=== PATIENT | female | born 1980 | race Caucasian/White ===

== ENCOUNTER 2016-12-07 00:29 | Emergency (ER) | payer OTHER ==
[2016-12-07 00:39] VITALS: PULSE 123; O2SAT 97
[2016-12-07] MEDS ORDERED: TORAdol 30 mg Injection IM ONE (00:49)
--- NOTE | 2016-12-07 00:53 | ERPHSYRPT ---
- History of Present Illness Time Seen by Provider: 12/07/16 00:50 Source: patient Exam Limitations: no limitations Patient Subjective Stated Complaint: SLIPPED AND FELL IN THE METAL BARS AT PRISON , POSSIBLE BROKEN RIGHT ARM Triage Nursing Assessment: PT ALERT AND ORIETNEDX3, GAIT IS STEADY, AMBUALTES WELL, SWELLING AND S SHAPED APPEARANCE TO RIGHT FOREARM, RADIAL PULSE PRESENT AND CAP REFILL IMMEDIATE Physician History: 35-year-old white female arrives with complaint of pain in her right to the distal forearm since approximately 1205 this morning. According to patient she slipped and hit her arm into the bars at the longterm she complains of pain and swelling in the distal right arm she has decreased range of motion to her right wrist secondary to pain. Past medical history includes rheumatoid arthritis, epilepsy, bipolar depression , fibroids. Past surgical history includes cholecystectomy and tubal ligation. Occurred: just prior to arrival (12:05 AM today) Extremities Pain Location: forearm: right Modifying Factors: Improves With: movement Associated Symptoms: none Allergies/Adverse Reactions: tramadol HCl [From UltraInflux] Allergy (Verified 02/06/16 16:02) ziprasidone HCl [From Geodon] Allergy (Verified 02/06/16 16:02) ziprasidone mesylate [From Geodon] Allergy (Verified 02/06/16 16:02) Home Medications: Lisinopril 10 mg [Zestril 10 MG] 10 mg PO DAILY 12/12/15 [History] Levetiracetam [Keppra 500 mg ] 1,000 mg PO BID 02/06/16 [History] Hx Tetanus, Diphtheria Vaccination/Date Given: Yes Hx Influenza Vaccination/Date Given: No Hx Pneumococcal Vaccination/Date Given: No Immunizations Up to Date: Yes - Review of Systems Constitutional: No Fever, No Chills Eyes: No Symptoms Ears, Nose, & Throat: No Symptoms Respiratory: No Cough, No Dyspnea Cardiac: No Chest Pain, No Edema, No Syncope Abdominal/Gastrointestinal: No Abdominal Pain, No Nausea, No Vomiting, No Diarrhea Genitourinary Symptoms: No Dysuria Musculoskeletal: Other (pain right distal forearm) Skin: No Rash Neurological: No Dizziness, No Focal Weakness, No Sensory Changes Psychological: No Symptoms Endocrine: No Symptoms All Other Systems: Reviewed and Negative - Past Medical History Pertinent Past Medical History: Yes Neurological History: Epilepsy ENT History: No Pertinent History Cardiac History: No Pertinent History Respiratory History: No Pertinent History Endocrine Medical History: No Pertinent History Musculoskeletal History: Rheumatoid Arthritis GI Medical History: No Pertinent History History: No Pertinent History Psycho-Social History: Bipolar, Depression Female Reproductive Disorders: Fibroids - Past Surgical History Past Surgical History: Yes Neuro Surgical History: No Pertinent History Cardiac: No Pertinent History Respiratory: No Pertinent History Gastrointestinal: Cholecystectomy Genitourinary: No Pertinent History Musculoskeletal: No Pertinent History Female Surgical History: Tubal Ligation - Social History Smoking Status: Current every day smoker How long have you smoked: 15 Exposure to second hand smoke: No Drug Use: none Patient Lives Alone: No - Female History Hx Now: No - Nursing Vital Signs Nursing Vital Signs: Initial Vital Signs Temperature 98.4 F Temperature Source Oral Pulse Rate 123 Respiratory Rate 18 Blood Pressure [] 136/85 Pain Intensity 8 - Physical Exam General Appearance: moderate distress Eyes, Ears, Nose, Throat Exam: moist mucous membranes Neck Exam: non-tender, supple Cardiovascular/Respiratory Exam: chest non-tender, normal breath sounds, regular rate/rhythm, no respiratory distress Abdominal Exam: non-tender, No guarding Back Exam: normal inspection, No vertebral tenderness Shoulder Exam: normal inspection, non-tender, no evidence of injury, normal ROM Elbow/Forearm Exam: pain (pain with palpation right distal forearm), swelling ( swelling right distal forearm), No normal ROM (decreased range of motion right wrist secondary to pain right forearm) Wrist Exam: No normal inspection (Decreased range of motion right wrist secondary to pain right forearm) Hand Exam: non-tender, no evidence of injury, No normal ROM (decreased range of motion right hand secondary to pain right forearm) Neuro/Tendon Exam: normal sensation, normal motor functions Mental Status Exam: alert, oriented x 3, cooperative Skin Exam: normal color, warm, dry SpO2 Interpretation: normal (97%) SpO2: 97 Oxygen Delivery: Room Air - Course Nursing assessment & vital signs reviewed: Yes - Radiology Exams Right Forearm X-ray Interpretation: Interpreted by me, Negative, No Fracture, No Subluxation Ordered Tests: Active Orders 24 hr Category Date Time Status Splint STAT Care 12/07/16 01:07 Active FOREARM Stat Exams 12/07/16 00:49 Taken Medication Summary Discontinued Medications Generic Name Dose Route Start Last Admin Trade Name Freq PRN Reason Stop Dose Admin Ketorolac Tromethamine 60 mg 12/07/16 00:49 12/07/16 01:06 Toradol 30 Mg Injection IM 12/07/16 00:50 60 mg STAT ONE Administration Ketorolac Tromethamine Confirm 12/07/16 00:58 Toradol 30 Mg Injection Administered 12/07/16 00:59 Dose 60 mg .ROUTE .STK-MED ONE - Progress Progress: improved Progress Note: 12/07/16 01:25 X-ray patient's right forearm negative fracture negative dislocation. Patient is better after Toradol she did have a moderate amount of pain in her distal right forearm. OCL was applied. Will discharge patient diagnosis accidental fall, contusion right forearm, right wrist sprain. Patient to take Motrin every 6 hours or Tylenol every 4 hours as needed for pain. - Departure Time of Disposition: :26 Departure Disposition: Shelter/Alf Clinical Impression: Accidental fall Qualifiers: Encounter type: initial encounter Qualified Code(s): W19.XXXA - Unspecified fall, initial encounter Contusion of right forearm Qualifiers: Encounter type: initial encounter Qualified Code(s): S50.11XA - Contusion of right forearm, initial encounter Right wrist sprain Qualifiers: Encounter type: initial encounter Qualified Code(s): S63.501A - Unspecified sprain of right wrist, initial encounter Condition: Fair Critical Care Time: No Referrals: CHADWICK WEST MD [Primary Care Provider] - Instructions: Wrist Sprain Additional Instructions: Return home. Ice to right forearm 24-48 hours. Motrin 600 mg orally every 6 hours with food as needed for pain. Tylenol every 4 hours as needed for pain. Follow-up with your physician or longterm doctor if symptoms are worse, no better in 24-48 hours, or persist longer than one week. Return for acute distress or for severe symptoms. Your x-rays have been preliminarily read they will be reread tomorrow morning you will be contacted if any discrepancies are noted.
[2016-12-07] MEDS ORDERED: TORAdol 30 mg Injection ONE (00:58)
[2016-12-07 01:31] VITALS: BP 130/78
--- NOTE | 2016-12-07 08:52 | XRAY ---
Indication: Pain following fall. Comparison: None 2 views of the right forearm demonstrates mild distal posterior soft tissue swelling. No other bony, articular, or soft tissue abnormalities.
== END 2016-12-07 01:38 | disposition home or self-care (01) ==
LOC: ED 00:29 → EEVIPCON 00:29 → ED 01:38
PROC: 2W3CX1Z Immobilization of Right Lower Arm using Splint (ICD-10-PCS; principal; 2016-12-07)
DX: S50.11XA Contusion of right forearm, initial encounter (principal); S63.501A Unspecified sprain of right wrist, initial encounter; W01.198A Fall on same level from slipping, tripping and stumbling with subsequent striking against other object, initial encounter; Y92.149 Unspecified place in prison as the place of occurrence of the external cause
CPT/HCPCS: 29126; 73090; 96372; 99283; 99284; J1885

== ENCOUNTER 2019-12-15 11:44 | Emergency (ER) | payer OTHER ==
--- NOTE | 2019-12-15 11:48 | ERPHSYRPT ---
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 Who was presented to the emergency department via EMS for confusion and ambulating in unusual fashion. Patient has been taking her psychiatric meds as she is prescribed. She is denying any illicit drug use or alcohol use. 911 was called because of the fashion in which she was ambulating around [place]. Patient denies head injury. She does have a headache. Patient has chronic low back pain and denies any acute trauma or fall. Patient denies suicidal ideation and homicidal ideation. Timing/Duration: today Severity of Symptoms-Max: mild Severity of Symptoms-Current: mild Context related to: other (Acting unusually and ambulating unusually.) Associated Symptoms: anxiety, No hallucinating, No impaired concentration, No paranoid, No suicidal ideation Previous symptoms: no prior history Allergies/Adverse Reactions: tramadol HCl [From Ultram] Allergy (Verified 02/06/16 16:02) ziprasidone HCl [From Geodon] Allergy (Verified 02/06/16 16:02) ziprasidone mesylate [From Geodon] Allergy (Verified 02/06/16 16:02) Home Medications: Lisinopril 10 mg [Zestril 10 MG] 10 mg PO DAILY 12/12/15 [History] Levetiracetam [Keppra 500 mg ] 1,000 mg PO BID 02/06/16 [History] Hx Tetanus, Diphtheria Vaccination/Date Given: Yes Hx Influenza Vaccination/Date Given: No Hx Pneumococcal Vaccination/Date Given: No Travel Risk - International Travel Have you traveled outside of the country in past 3 weeks: No - Coronavirus Screening Are you exhibiting any of the following symptoms?: No Close contact with a COVID-19 positive Pt in past 14-21 Days: No - Past Medical History Pertinent Past Medical History: Yes Neurological History: Seizures ENT History: No Pertinent History Cardiac History: Hypertension Respiratory History: No Pertinent History Endocrine Medical History: No Pertinent History Musculoskeletal History: Degenerative Disk Disease, Rheumatoid Arthritis GI Medical History: No Pertinent History History: No Pertinent History Psycho-Social History: Bipolar, Depression Female Reproductive Disorders: Fibroids Other Medical History: STATES SHE HAS RHEUMATOID ARTHRITIS BUT DOES NOT FOLLOW- UP WITH [facility] OR TAKE ANY MEDICATION. HX OF SEIZURE DISORDER BUT NOT ON ANY MEDICATION X 2 YEARS WITH NO SEIZURES FOR 1-1/2 YE - Past Surgical History Past Surgical History: Yes Neuro Surgical History: No Pertinent History Cardiac: No Pertinent History Respiratory: No Pertinent History Gastrointestinal: Cholecystectomy Genitourinary: No Pertinent History Musculoskeletal: No Pertinent History Female Surgical History: Tubal Ligation - Social History Smoking Status: Current every day smoker How long have you smoked: 15 Exposure to second hand smoke: No Drug Use: none Patient Lives Alone: No - Review of Systems Constitutional: No Symptoms Eyes: No Symptoms Ears, Nose, & Throat: No Symptoms Respiratory: No Symptoms Cardiac: No Symptoms Abdominal/Gastrointestinal: No Symptoms Genitourinary Symptoms: No Symptoms Musculoskeletal: Back Pain (Chronic, worse today) Skin: No Symptoms Neurological: No Symptoms Psychological: No Symptoms, Other (Patient denies any complaints.) Endocrine: No Symptoms Hematologic/Lymphatic: No Symptoms Immunological/Allergic: No Symptoms All Other Systems: Reviewed and Negative - Nursing Vital Signs Nursing Vital Signs: Initial Vital Signs Temperature 98.3 F 12/15/19 11:46 Pulse Rate 98 H 12/15/19 11:46 Respiratory Rate 18 12/15/19 11:46 Blood Pressure 114/84 12/15/19 11:46 O2 Sat by Pulse Oximetry 95 12/15/19 11:46 Pain Scale Pain Intensity 8 - Physical Exam General Appearance: no apparent distress, alert, anxiety Eyes, Ears, Nose, Throat Exam: normal ENT inspection, moist mucous membranes Neck Exam: normal inspection, non-tender, supple, full range of motion Respiratory Exam: normal breath sounds, lungs clear, respiratory distress, airway intact, No chest tenderness Cardiovascular Exam: regular rate/rhythm, normal heart sounds, normal peripheral pulses Gastrointestinal/Abdominal Exam: soft, normal bowel sounds, No tenderness Extremities Exam: normal inspection Current Suicidality: denies suicide plan Neurological Exam: alert, calm, bell person II-XII nml as tested, anxious Appearance: appropriate appearance, appropriate insight, neat, no memory impairment Behavior/Eye Contact/Speech: alert & cooperative, good eye contact, normal speech Thoughts/Hallucinations: normal thought pattern, no apparent hallucination Skin Exam: normal color, warm, dry SpO2 Interpretation: normal O2 Delivery: Room Air - Course Nursing assessment & vital signs reviewed: Yes EKG Interpreted by Me: RATE (90), Sinus Rhythm, NORMAL AXIS, NORMAL INTERVALS, NORMAL QRS, Other (No acute ischemic changes) Ordered Tests: Active Orders 24 hr Category Date Time Status Float Builder STAT Care 12/15/19 11:49 Active EKG-ER Only STAT Care 12/15/19 11:48 Active IV Insertion STAT Care 12/15/19 11:48 Active HEAD WITHOUT CONTRAST [CT] Stat Exams 12/15/19 11:52 Completed ACETAMINOPHEN Stat Lab 12/15/19 12:09 Completed CBC W DIFF Stat Lab 12/15/19 12:09 Completed CMP Stat Lab 12/15/19 12:09 Completed ETHYL ALCOHOL Stat Lab 12/15/19 12:09 Completed LITHIUM Stat Lab 12/15/19 12:09 Completed SALICYLATE Stat Lab 12/15/19 12:09 Completed UA W/RFX UR CULTURE Stat Lab 12/15/19 12:50 Completed Urine Triage Profile Stat Lab 12/15/19 12:40 Completed Medication Summary Discontinued Medications Generic Name Dose Route Start Last Admin Trade Name Cady PRN Reason Stop Dose Admin Hydromorphone HCl 0.5 mg 12/15/19 12:57 12/15/19 13:12 Hydromorphone 1 Mg/Ml Ampule IV 12/15/19 12:58 0.5 mg STAT ONE Administration Hydromorphone HCl Confirm 12/15/19 13:10 Hydromorphone 1 Mg/Ml Ampule Administered 12/15/19 13:11 Dose 1 mg .ROUTE .STK-MED ONE Ondansetron HCl 4 mg 12/15/19 12:57 12/15/19 13:12 Zofran 4 Mg/2 Ml Vial IV 12/15/19 12:58 4 mg STAT ONE Administration Ondansetron HCl Confirm 12/15/19 13:10 Zofran 4 Mg/2 Ml Vial Administered 12/15/19 13:11 Dose 4 mg .ROUTE .STK-MED ONE Lab/Rad Data: Laboratory Result Diagrams 12/15/19 12:09 12/15/19 12:09 Laboratory Results 12/15/19 12/15/19 12/15/19 Range/Units 12:50 12:40 12:09 WBC (4.0-10.5) K/mm3 RBC (4.1-5.4) M/mm3 Hgb (12.0-16.0) gm/dl Hct (35-47) % MCV (78-100) fl MCH (26-32) pg MCHC (32-36) g/dl RDW (11.5-14.0) % Plt Count (150-450) K/mm3 MPV (7.5-11.0) fl Gran % (36.0-66.0) % Eos # (Auto) (0-0.5) Absolute Lymphs (auto) (1.0-4.6) Absolute Monos (auto) (0.0-1.3) Lymphocytes % (24.0-44.0) % Monocytes % (0.0-12.0) % Eosinophils % (0.00-5.0) % Basophils % (0.0-0.4) % Absolute Granulocytes (1.4-6.9) Basophils # (0-0.4) Sodium (137-145) mmol/L Potassium (3.5-5.1) mmol/L Chloride (98-107) mmol/L Carbon Dioxide (22-30) mmol/L Anion Gap (5-15) MEQ/L BUN (7-17) mg/dL Creatinine (0.52-1.04) mg/dL Estimated GFR ML/MIN Glucose (74-106) mg/dL Calcium (8.4-10.2) mg/dL Total Bilirubin (0.2-1.3) mg/dL AST (14-36) U/L ALT (0-35) U/L Alkaline Phosphatase (38-126) U/L Serum Total Protein (6.3-8.2) g/dL Albumin (3.5-5.0) g/dL Urine Color YELLOW (YELLOW) Urine Appearance CLEAR (CLEAR) Urine pH 7.0 (5-6) Ur Specific [place] 1.013 (1.005-1.025) Urine Protein NEGATIVE (Negative) Urine Ketones NEGATIVE (NEGATIVE) Urine Blood NEGATIVE (0-5) Sarabjit/ul Urine Nitrite NEGATIVE (NEGATIVE) Urine Bilirubin NEGATIVE (NEGATIVE) Urine Urobilinogen 4 (0-1) mg/dL Ur Leukocyte Esterase NEGATIVE (NEGATIVE) Urine WBC (Auto) 0-2 (0-5) /HPF Urine RBC (Auto) NONE (0-2) /HPF U Epithel Cells (Auto) RARE (FEW) /HPF Urine Bacteria (Auto) NONE (NEGATIVE) /HPF Urine Mucus (Auto) SLIGHT (NEGATIVE) /HPF Urine Culture Reflexed NO (NO) Urine Glucose NEGATIVE (NEGATIVE) mg/dL Salicylates (2-20) mg/dL Urine Opiates Level POSITIVE (NEGATIVE) Ur Methadone NEGATIVE (NEGATIVE) Acetaminophen (10-30) ug/ml Urine Barbiturates NEGATIVE (NEGATIVE) Ur Phencyclidine (PCP) NEGATIVE (NEGATIVE) Urine Amphetamine NEGATIVE (NEGATIVE) U Benzodiazepine Level POSITIVE (NEGATIVE) Matteson < 0.2 L (0.60-1.20) mmol/L Urine Cocaine NEGATIVE (NEGATIVE) Urine Marijuana (THC) NEGATIVE (NEGATIVE) Ethyl Alcohol (0-10) mg/dL 12/15/19 12/15/19 Range/Units 12:09 12:09 WBC 8.5 (4.0-10.5) K/mm3 RBC 4.73 (4.1-5.4) M/mm3 Hgb 13.4 (12.0-16.0) gm/dl Hct 42.0 (35-47) % MCV 88.8 (78-100) fl MCH 28.3 (26-32) pg MCHC 31.9 L (32-36) g/dl RDW 13.3 (11.5-14.0) % Plt Count 184 (150-450) K/mm3 MPV 11.2 H (7.5-11.0) fl Gran % 68.4 H (36.0-66.0) % Eos # (Auto) 0.11 (0-0.5) Absolute Lymphs (auto) 2.02 (1.0-4.6) Absolute Monos (auto) 0.53 (0.0-1.3) Lymphocytes % 23.8 L (24.0-44.0) % Monocytes % 6.3 (0.0-12.0) % Eosinophils % 1.3 (0.00-5.0) % Basophils % 0.2 (0.0-0.4) % Absolute Granulocytes 5.79 (1.4-6.9) Basophils # 0.02 (0-0.4) Sodium 137 (137-145) mmol/L Potassium 4.7 (3.5-5.1) mmol/L Chloride 103 (98-107) mmol/L Carbon Dioxide 28 (22-30) mmol/L Anion Gap 10.1 (5-15) MEQ/L BUN 14 (7-17) mg/dL Creatinine 0.53 (0.52-1.04) mg/dL Estimated GFR > 60.0 ML/MIN Glucose 85 (74-106) mg/dL Calcium 9.4 (8.4-10.2) mg/dL Total Bilirubin 0.50 (0.2-1.3) mg/dL AST 65 H (14-36) U/L ALT 58 H (0-35) U/L Alkaline Phosphatase 160 H (38-126) U/L Serum Total Protein 7.8 (6.3-8.2) g/dL Albumin 4.1 (3.5-5.0) g/dL Urine Color (YELLOW) Urine Appearance (CLEAR) Urine pH (5-6) Ur Specific [place] (1.005-1.025) Urine Protein (Negative) Urine Ketones (NEGATIVE) Urine Blood (0-5) Sarabjit/ul Urine Nitrite (NEGATIVE) Urine Bilirubin (NEGATIVE) Urine Urobilinogen (0-1) mg/dL Ur Leukocyte Esterase (NEGATIVE) Urine WBC (Auto) (0-5) /HPF Urine RBC (Auto) (0-2) /HPF U Epithel Cells (Auto) (FEW) /HPF Urine Bacteria (Auto) (NEGATIVE) /HPF Urine Mucus (Auto) (NEGATIVE) /HPF Urine Culture Reflexed (NO) Urine Glucose (NEGATIVE) mg/dL Salicylates 1.0 L (2-20) mg/dL Urine Opiates Level (NEGATIVE) Ur Methadone (NEGATIVE) Acetaminophen < 10 L (10-30) ug/ml Urine Barbiturates (NEGATIVE) Ur Phencyclidine (PCP) (NEGATIVE) Urine Amphetamine (NEGATIVE) U Benzodiazepine Level (NEGATIVE) Matteson (0.60-1.20) mmol/L Urine Cocaine (NEGATIVE) Urine Marijuana (THC) (NEGATIVE) Ethyl Alcohol < 10 (0-10) mg/dL - Progress Progress: improved Progress Note: 12/15/19 13:08 CT of the head reveals no acute intracranial abnormality Counseled pt/family regarding: lab results, diagnosis, need for follow-up, rad results - Departure Departure Disposition: Home Clinical Impression: Headache Condition: Stable Critical Care Time: No Referrals: STONEY LANCE [ACTIVE STAFF] - Additional Instructions: Take your medication as prescribed. Follow-up with your primary care/prescribing physician for further management.
[2019-12-15 12:22] LABS: Absolute Neutrophil Ct (ANC) 5.79 (1.4-6.9); BASOPHIL % 0.2 % (0.0-0.4); Basophil (Absolute #) 0.02 (0-0.4); Eosinophil % 1.3 % (0.00-5.0); Eosinophil (Absolute #) 0.11 (0-0.5); Hemoglobin 13.4 gm/dl (12.0-16.0); Lymphocyte (Absolute #) 2.02 (1.0-4.6); Lymphocytes % 23.8 % (24.0-44.0); Mean Cell Volume 88.8 fl (78-100); Mean Corpuscular Hemoglobin 28.3 pg (26-32); Mean Corpuscular Hgb Concent. 31.9 g/dl (32-36); Mean Platelet Volume 11.2 fl (7.5-11.0); Monocyte (Absolute #) 0.53 (0.0-1.3); Monocytes % 6.3 % (0.0-12.0); Neutrophil % 68.4 % (36.0-66.0); Platelet Count 184 K/mm3 (150-450); Red Blood Count 4.73 M/mm3 (4.1-5.4); Red Cell Distribution Width 13.3 % (11.5-14.0); White Blood Count 8.5 K/mm3 (4.0-10.5)
--- NOTE | 2019-12-15 12:24 | XRAY ---
Indication: Headache. No known injury. Multiple contiguous axial images obtained through the head without contrast. Comparison: October 05, 2015. Again normal appearing brain parenchyma, ventricles, and bony calvarium. Visualized paranasal sinuses and mastoid air cells are clear. Impression: Normal CT head without contrast exam.
[2019-12-15 12:30] LABS: ALBUMIN 4.1 g/dL (3.5-5.0); ALKALINE PHOSPHATASE 160 U/L (38-126); ANION GAP 10.1 MEQ/L (5-15); BLOOD UREA NITROGEN 14 mg/dL (7-17); CHLORIDE 103 mmol/L (98-107); Calcium 9.4 mg/dL (8.4-10.2); Carbon Dioxide 28 mmol/L (22-30); Creatinine 1 0.53 mg/dL (0.52-1.04); Glucose 85 mg/dL (74-106); Potassium 4.7 mmol/L (3.5-5.1); SGOT/AST 65 U/L (14-36); SGPT/ALT 58 U/L (0-35); SODIUM 137 mmol/L (137-145); Total Protein 7.8 g/dL (6.3-8.2)
[2019-12-15 12:32] LABS: ACETAMINOPHEN < 10 ug/ml (10-30); ETHYL ALCOHOL < 10 mg/dL (0-10)
[2019-12-15 12:50] VITALS: BP 115/88; PULSE 92; O2SAT 99
[2019-12-15] MEDS ORDERED: Zofran 4 MG/2 ML VIAL IV ONE (12:57)
[2019-12-15] MEDS ORDERED: Hydromorphone 1 mg/ml Ampule IV ONE (12:57)
[2019-12-15 13:10] LABS: Appearance CLEAR (CLEAR); Bilirubin NEGATIVE (NEGATIVE); Blood NEGATIVE Ery/ul (0-5); Epithelial Cells RARE /HPF (FEW); Glucose NEGATIVE (NEGATIVE); Ketones NEGATIVE (NEGATIVE); Leukocyte Esterase NEGATIVE (NEGATIVE); Mucus SLIGHT /HPF (NEGATIVE); Nitrite NEGATIVE (NEGATIVE); Protein,Urine Dip NEGATIVE (Negative); Specific Gravity 1.013 (1.005-1.025); Urobilinogen 4 mg/dL (0-1); WBC 0-2 /HPF (0-5)
[2019-12-15] MEDS ORDERED: Hydromorphone 1 mg/ml Ampule ONE (13:10)
[2019-12-15] MEDS ORDERED: Zofran 4 MG/2 ML VIAL ONE (13:10)
[2019-12-15 13:23] LABS: Amphetamine,Urine NEGATIVE (NEGATIVE); Barbiturate,Urine NEGATIVE (NEGATIVE); Benzodiazepine,Urine POSITIVE (NEGATIVE); Cocaine,Urine NEGATIVE (NEGATIVE); Methadone,Urine NEGATIVE (NEGATIVE); Opiate,Urine POSITIVE (NEGATIVE); PCP,Urine NEGATIVE (NEGATIVE); THC,Urine NEGATIVE (NEGATIVE)
== END 2019-12-15 14:02 | disposition home or self-care (01) ==
LOC: ED 11:44
DX: I10 Essential (primary) hypertension (principal); G40.909 Epilepsy, unspecified, not intractable, without status epilepticus; F31.9 Bipolar disorder, unspecified; M06.9 Rheumatoid arthritis, unspecified; M54.5 Low back pain; G89.29 Other chronic pain; F45.42 Pain disorder with related psychological factors; Z72.0 Tobacco use
CPT/HCPCS: 36000; 36415; 70450; 80053; 80178; 80307; 81001; 85025; 93005; 93041; 96374; 96375; 99284; G0480; J1170; J2405

== ENCOUNTER 2020-01-20 20:43 | Emergency (ER) | payer OTHER ==
--- NOTE | 2020-01-20 21:11 | ERPHSYRPT ---
- History of Present Illness Time Seen by Provider: 01/20/20 21:11 Source: patient Exam Limitations: no limitations Patient Subjective Stated Complaint: pt c/o sore throat, pain in throat and diff swallowing Triage Nursing Assessment: pt c/o sore throat. Pt has pain in her throat and diff swallowing, fatigue and body aches. Sob at times when lying down but feels its due to not being able to swallow. Pt's throat is red, did not see any patchy areas. Physician History: Is a 39-year-old white female with a history of hypertension, seizure disorder, bipolar disorder, depression, rheumatoid arthritis and degenerative joint disease who complains of 3-day history of sore throat and body aches. She states that this morning her sore throat worsened. Is very dry and she is having difficulty swallowing. She denies fever. She does complain of some left-sided chest pain but no shortness of breath. She has had no nausea vomiting or diarrhea. She denies abdominal pain. She has never had a COVID-19 test and she is unaware of being exposed anyone that is positive for COVID-19 virus. Timing/Duration: gradual onset Severity: mild ENT Location: throat Prearrival Treatment: no prearrival treatment Modifying Factors: Improves With: nothing Associated Symptoms: headache, No cough, No fever, No chills Allergies/Adverse Reactions: tramadol HCl [From [facility]] Allergy (Verified 01/20/20 21:09) Home Medications: Benztropine Mesylate 1 mg PO DAILY 12/15/19 [History] Clonazepam 1 mg PO BID PRN PRN 12/15/19 [History] Prazosin HCl 1 mg PO DAILY 12/15/19 [History] Propranolol HCl 10 mg PO BID 12/15/19 [History] Venlafaxine HCl [Venlafaxine HCl ER] 150 mg PO DAILY 12/15/19 [History] ziprasidone HCL [Ziprasidone HCl] 80 mg PO HS 01/20/20 [History] Hx Tetanus, Diphtheria Vaccination/Date Given: Yes Hx Influenza Vaccination/Date Given: No Hx Pneumococcal Vaccination/Date Given: No Immunizations Up to Date: Yes Travel Risk - International Travel Have you traveled outside of the country in past 3 weeks: No - Coronavirus Screening Are you exhibiting any of the following symptoms?: Yes Symptoms: Shortness of Breath, Headaches/Body Aches/Fatigue Close contact with a COVID-19 positive Pt in past 14-21 Days: No - Review of Systems Constitutional: No Symptoms Eyes: No Symptoms Ears, Nose, & Throat: Throat Pain Respiratory: No Symptoms Cardiac: Chest Pain (Chronic mild left-sided) Abdominal/Gastrointestinal: No Symptoms Genitourinary Symptoms: No Symptoms Musculoskeletal: Arthralgias, Myalgias Skin: No Symptoms Neurological: No Symptoms Psychological: No Symptoms Endocrine: No Symptoms Hematologic/Lymphatic: No Symptoms Immunological/Allergic: No Symptoms All Other Systems: Reviewed and Negative - Past Medical History Pertinent Past Medical History: Yes Neurological History: Seizures ENT History: No Pertinent History Cardiac History: Hypertension Respiratory History: No Pertinent History Endocrine Medical History: No Pertinent History Musculoskeletal History: Degenerative Disk Disease, Rheumatoid Arthritis GI Medical History: No Pertinent History History: No Pertinent History Psycho-Social History: Bipolar, Depression Female Reproductive Disorders: Fibroids Other Medical History: STATES SHE HAS RHEUMATOID ARTHRITIS BUT DOES NOT FOLLOW- UP WITH DIGITAL ACCOUNT SUPERVISOR OR TAKE ANY MEDICATION. HX OF SEIZURE DISORDER BUT NOT ON ANY MEDICATION X 2 YEARS WITH NO SEIZURES FOR 1-/2 YE - Past Surgical History Past Surgical History: Yes Neuro Surgical History: No Pertinent History Cardiac: No Pertinent History Respiratory: No Pertinent History Gastrointestinal: Cholecystectomy Genitourinary: No Pertinent History Musculoskeletal: No Pertinent History Female Surgical History: Tubal Ligation - Social History Smoking Status: Former smoker How long have you smoked: 15 Exposure to second hand smoke: Yes Drug Use: none Patient Lives Alone: No - Female History Hx Now: No - Nursing Vital Signs Nursing Vital Signs: Initial Vital Signs Temperature 98.2 F 01/20/20 20:59 Pulse Rate 84 01/20/20 20:59 Respiratory Rate 18 01/20/20 20:59 Blood Pressure 121/83 01/20/20 20:59 O2 Sat by Pulse Oximetry 98 01/20/20 20:59 Pain Scale Pain Intensity 0 - Physical Exam General Appearance: mild distress, alert, anxiety Eye Exam: bilateral eye: normal inspection, PERRL, EOMI Ear Exam: bilateral ear: auricle normal, canal normal, TM normal Nasal Exam: normal inspection Throat Exam: normal, pharynx normal Neck Exam: normal inspection, non-tender, supple, full range of motion, trachea midline Cardiovascular/Respiratory Exam: chest non-tender, normal breath sounds, regular rate/rhythm, heart sounds normal, no respiratory distress Abdominal Exam: non-tender Neurologic Exam: alert, oriented x 3, cooperative, radio survey worker II-XII nml as tested, nml cerebellar function, nml station & gait, sensation nml Skin Exam: normal color, warm, dry SpO2 Interpretation: normal SpO2: 98 O2 Delivery: Room Air - Course Nursing assessment & vital signs reviewed: Yes EKG Interpreted by Me: RATE ([id number]), Sinus Rhythm, NORMAL AXIS, NORMAL INTERVALS, NORMAL QRS, Other (No acute ischemic changes on the current EKG. The comparison EKG on 12/15/2019 shows no acute ischemic changes. There is no significant change from that EKG compared to today's EKG) Ordered Tests: Active Orders 24 hr Category Date Time Status EKG-ER Only STAT Care 01/20/20 21:21 Active IV Insertion STAT Care 01/20/20 22:04 Active BMP Stat Lab 01/20/20 22:15 Completed CBC W DIFF Stat Lab 01/20/20 22:15 Completed [place] Screen Stat Lab 01/20/20 22:15 Completed TROPONIN Q3H Lab 01/20/20 22:15 Completed Lab/Rad Data: Laboratory Result Diagrams 01/20/20 22:15 01/20/20 22:15 Laboratory Results 01/20/20 01/20/20 01/20/20 Range/Units 22:15 22:15 22:15 WBC (4.0-10.5) K/mm3 RBC (4.1-5.4) M/mm3 Hgb (12.0-16.0) gm/dl Hct (35-47) % MCV (78-100) fl MCH (26-32) pg MCHC (32-36) g/dl RDW (11.5-14.0) % Plt Count (150-450) K/mm3 MPV (7.5-11.0) fl Gran % (36.0-66.0) % Eos # (Auto) (0-0.5) Absolute Lymphs (auto) (1.0-4.6) Absolute Monos (auto) (0.0-1.3) Lymphocytes % (24.0-44.0) % Monocytes % (0.0-12.0) % Eosinophils % (0.00-5.0) % Basophils % (0.0-0.4) % Absolute Granulocytes (1.4-6.9) Basophils # (0-0.4) Sodium 135 L (137-145) mmol/L Potassium 4.2 (3.5-5.1) mmol/L Chloride 106 (98-107) mmol/L Carbon Dioxide 24 (22-30) mmol/L Anion Gap 9.0 (5-15) MEQ/L BUN 9 (7-17) mg/dL Creatinine 0.53 (0.52-1.04) mg/dL Estimated GFR > 60.0 ML/MIN Glucose 82 (74-106) mg/dL Calcium 8.6 (8.4-10.2) mg/dL Troponin I < 0.012 (0.000-0.034) ng/mL Monoscreen NEGATIVE (Negative) Influenza Type A Ag (NEGATIVE) Influenza Type B Ag (NEGATIVE) RSV (PCR) (Negative) Group A Strep Antibody (NEGATIVE) 01/20/20 01/20/20 Range/Units 22:15 22:00 WBC 7.9 (4.0-10.5) K/mm3 RBC 4.83 (4.1-5.4) M/mm3 Hgb 13.6 (12.0-16.0) gm/dl Hct 42.2 (35-47) % MCV 87.4 (78-100) fl MCH 28.2 (26-32) pg MCHC 32.2 (32-36) g/dl RDW 13.4 (11.5-14.0) % Plt Count 192 (150-450) K/mm3 MPV 11.0 (7.5-11.0) fl Gran % 62.8 (36.0-66.0) % Eos # (Auto) 0.17 (0-0.5) Absolute Lymphs (auto) 2.02 (1.0-4.6) Absolute Monos (auto) 0.74 (0.0-1.3) Lymphocytes % 25.5 (24.0-44.0) % Monocytes % 9.3 (0.0-12.0) % Eosinophils % 2.1 (0.00-5.0) % Basophils % 0.3 (0.0-0.4) % Absolute Granulocytes 4.97 (1.4-6.9) Basophils # 0.02 (0-0.4) Sodium (137-145) mmol/L Potassium (3.5-5.1) mmol/L Chloride (98-107) mmol/L Carbon Dioxide (22-30) mmol/L Anion Gap (5-15) MEQ/L BUN (7-17) mg/dL Creatinine (0.52-1.04) mg/dL Estimated GFR ML/MIN Glucose (74-106) mg/dL Calcium (8.4-10.2) mg/dL Troponin I (0.000-0.034) ng/mL Monoscreen (Negative) Influenza Type A Ag NEGATIVE (NEGATIVE) Influenza Type B Ag NEGATIVE (NEGATIVE) RSV (PCR) NEGATIVE (Negative) Group A Strep Antibody NOT DETECTED (NEGATIVE) - Progress Progress: improved, re-examined Counseled pt/family regarding: lab results, diagnosis, need for follow-up - Departure Departure Disposition: Home Clinical Impression: Pharyngitis Condition: Stable Critical Care Time: No Referrals: CAMPBELL MAHAN [Primary Care Provider] - Additional Instructions: Plenty of fluids. Take your medication as prescribed. Follow-up with your primary care physician for further management. Prescriptions: Prednisone 10 mg [Deltasone 10 mg] 10 mg PO TID #12 tablet
[2020-01-20 22:27] LABS: Absolute Neutrophil Ct (ANC) 4.97 (1.4-6.9); BASOPHIL % 0.3 % (0.0-0.4); Basophil (Absolute #) 0.02 (0-0.4); Eosinophil % 2.1 % (0.00-5.0); Eosinophil (Absolute #) 0.17 (0-0.5); Hematocrit 42.2 % (35-47); Hemoglobin 13.6 gm/dl (12.0-16.0); Lymphocyte (Absolute #) 2.02 (1.0-4.6); Lymphocytes % 25.5 % (24.0-44.0); Mean Cell Volume 87.4 fl (78-100); Mean Corpuscular Hemoglobin 28.2 pg (26-32); Mean Corpuscular Hgb Concent. 32.2 g/dl (32-36); Monocyte (Absolute #) 0.74 (0.0-1.3); Monocytes % 9.3 % (0.0-12.0); Neutrophil % 62.8 % (36.0-66.0); Platelet Count 192 K/mm3 (150-450); Red Blood Count 4.83 M/mm3 (4.1-5.4); Red Cell Distribution Width 13.4 % (11.5-14.0); White Blood Count 7.9 K/mm3 (4.0-10.5)
[2020-01-20 22:37] LABS: BLOOD UREA NITROGEN 9 mg/dL (7-17); CHLORIDE 106 mmol/L (98-107); Calcium 8.6 mg/dL (8.4-10.2); Carbon Dioxide 24 mmol/L (22-30); Creatinine 1 0.53 mg/dL (0.52-1.04); Glucose 82 mg/dL (74-106); Potassium 4.2 mmol/L (3.5-5.1); SODIUM 135 mmol/L (137-145)
[2020-01-20 22:39] LABS: INFLUENZA A NEGATIVE (NEGATIVE); INFLUENZA B NEGATIVE (NEGATIVE); RESPIRATORY SYNCTIAL VIRUS NEGATIVE (Negative)
[2020-01-20 23:31] VITALS: O2SAT 98
[2020-01-20] MEDS ORDERED: solu-MEDROL 125 MG IV ONE (23:31)
[2020-01-20] MEDS ORDERED: solu-MEDROL 125 MG ONE (23:36)
[2020-01-20 23:47] VITALS: BP 123/80; PULSE 76
== END 2020-01-20 23:56 | disposition home or self-care (01) ==
LOC: ED 20:43
DX: J02.9 Acute pharyngitis, unspecified (principal)
CPT/HCPCS: 36000; 36415; 80048; 84484; 85025; 86308; 87631; 87651; 93005; 96374; 99284; U0003; J2930

== ENCOUNTER 2020-05-24 10:50 | Emergency (ER) | payer OTHER ==
--- NOTE | 2020-05-24 10:53 | ERPHSYRPT ---
- History of Present Illness Time Seen by Provider: 05/24/20 10:53 Source: patient, EMS Exam Limitations: clinical condition Physician History: This is a 39-year-old white female who was home with her kids and she said she "passed out" 3 times this morning. Patient has no specific areas of pain. She has mild generalized aches. Patient admits to being on methamphetamine. She does have a significant illicit drug abuse history. CPS has been involved with her several times. Patient has a significant history of anxiety. Patient does not have chest pain. She has no nausea vomiting or diarrhea. Patient arrives via EMS lethargic but rousable. Patient denies any suicidal or homicidal ideations. She denies hallucinations. Timing/Duration: today Severity: moderate Modifying Factors: Improves With: nothing Associated Symptoms: syncope, weakness, No nausea, No vomiting, No abdominal pain, No shortness of breath, No chest pain, No headaches Allergies/Adverse Reactions: tramadol HCl [From [facility]] Allergy (Verified 01/20/20 21:09) Home Medications: Benztropine Mesylate 1 mg PO DAILY 12/15/19 [History] Clonazepam 1 mg PO BID PRN PRN 12/15/19 [History] Prazosin HCl 1 mg PO DAILY 12/15/19 [History] Propranolol HCl 10 mg PO BID 12/15/19 [History] Venlafaxine HCl [Venlafaxine HCl ER] 150 mg PO DAILY 12/15/19 [History] ziprasidone HCL [Ziprasidone HCl] 80 mg PO HS 01/20/20 [History] Hx Tetanus, Diphtheria Vaccination/Date Given: Yes Hx Influenza Vaccination/Date Given: No Hx Pneumococcal Vaccination/Date Given: No Travel Risk - International Travel Have you traveled outside of the country in past 3 weeks: No - Coronavirus Screening Are you exhibiting any of the following symptoms?: No Close contact with a COVID-19 positive Pt in past 14-21 Days: No - Review of Systems Constitutional: Weakness Eyes: No Symptoms Ears, Nose, & Throat: No Symptoms Respiratory: No Symptoms Cardiac: No Symptoms Abdominal/Gastrointestinal: No Symptoms Genitourinary Symptoms: No Symptoms Musculoskeletal: No Symptoms Skin: No Symptoms Neurological: Other (Lethargic) Psychological: No Symptoms, No Suicidal Ideations, No Homicidal Ideations Endocrine: No Symptoms Hematologic/Lymphatic: No Symptoms Immunological/Allergic: No Symptoms All Other Systems: Reviewed and Negative - Past Medical History Pertinent Past Medical History: Yes Neurological History: Seizures ENT History: No Pertinent History Cardiac History: Hypertension Respiratory History: No Pertinent History Endocrine Medical History: No Pertinent History Musculoskeletal History: Degenerative Disk Disease, Rheumatoid Arthritis GI Medical History: No Pertinent History History: No Pertinent History Psycho-Social History: Bipolar, Depression Female Reproductive Disorders: Fibroids Other Medical History: STATES SHE HAS RHEUMATOID ARTHRITIS BUT DOES NOT FOLLOW- UP WITH MANAGEMENT 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 HX OF SEIZURE DISORDER BUT NOT ON ANY MEDICATION X 2 YEARS WITH NO SEIZURES FOR 1-1/2 YE - Past Surgical History Past Surgical History: Yes Neuro Surgical History: No Pertinent History Cardiac: No Pertinent History Respiratory: No Pertinent History Gastrointestinal: Cholecystectomy Genitourinary: No Pertinent History Musculoskeletal: No Pertinent History Female Surgical History: Tubal Ligation - Social History Smoking Status: Former smoker How long have you smoked: 15 Exposure to second hand smoke: Yes Drug Use: none Patient Lives Alone: No - Nursing Vital Signs Nursing Vital Signs: Initial Vital Signs Temperature 98.7 F 05/24/20 10:51 Pulse Rate 127 H 05/24/20 10:51 Respiratory Rate 20 05/24/20 10:51 Blood Pressure 140/85 05/24/20 10:51 O2 Sat by Pulse Oximetry 96 05/24/20 10:51 Pain Scale Pain Intensity 8 - Physical Exam General Appearance: lethargy Eye Exam: PERRL/EOMI, eyes nml inspection Ears, Nose, Throat Exam: normal ENT inspection, moist mucous membranes Neck Exam: normal inspection, non-tender, supple, full range of motion Respiratory Exam: normal breath sounds, lungs clear, airway intact, No chest tenderness, No respiratory distress Cardiovascular Exam: tachycardia Gastrointestinal/Abdomen Exam: soft, normal bowel sounds, No tenderness Pelvic Exam: not done Rectal Exam: not done Back Exam: normal inspection, normal range of motion, No CVA tenderness, No vertebral tenderness Extremity Exam: normal inspection, normal range of motion, pelvis stable Neurologic Exam: cooperative, intoxicated appearance, other (Mildly lethargic but rousable) Skin Exam: normal color, warm, dry Lymphatic Exam: No adenopathy SpO2 Interpretation: normal O2 Delivery: Room Air - Course Nursing assessment & vital signs reviewed: Yes EKG Interpreted by Me: RATE ([id number]), Sinus Tach, NORMAL INTERVALS, NORMAL QRS, Other (When compared to the EKG that shows no acute ischemic changes dated 01/20/2020, today's EKG shows sinus tachycardia. There is no evidence of any acute ischemic changes on today's EKG.) Ordered Tests: Active Orders 24 hr Category Date Time Status AMA [Release AMA] OM.NOW Care 05/24/20 13:29 Ordered Clean Catch Urine Specimen STAT Care 05/24/20 11:52 Active EKG-ER Only STAT Care 05/24/20 11:52 Active IV Insertion STAT Care 05/24/20 11:52 Active Pulse Oximetry (ED) STAT Care 05/24/20 11:52 Active HEAD WITHOUT CONTRAST [CT] Stat Exams 05/24/20 11:54 Taken ACETAMINOPHEN Stat Lab 05/24/20 12:15 Completed CBC W DIFF Stat Lab 05/24/20 12:15 Completed CMP Stat Lab 05/24/20 12:15 Completed ETHYL ALCOHOL Stat Lab 05/24/20 12:15 Completed HCG,QUALITATIVE URINE Stat Lab 05/24/20 12:18 Completed SALICYLATE Stat Lab 05/24/20 12:15 Completed UA W/RFX UR CULTURE Stat Lab 05/24/20 12:18 Completed Urine Triage Profile Stat Lab 05/24/20 12:18 Completed Medication Summary Discontinued Medications Generic Name Dose Route Start Last Admin Trade Name Freq PRN Reason Stop Dose Admin Sodium Chloride 1,000 mls @ 999 mls/hr 05/24/20 11:52 Sodium Chloride 0.9% 1000 Ml IV 05/24/20 12:52 .Q1H1M STA Lab/Rad Data: Laboratory Result Diagrams 05/24/20 12:15 05/24/20 12:15 Laboratory Results 05/24/20 05/24/20 05/24/20 Range/Units 12:18 12:18 12:18 WBC (4.0-10.5) K/mm3 RBC (4.1-5.4) M/mm3 Hgb (12.0-16.0) gm/dl Hct (35-47) % MCV (78-100) fl MCH (26-32) pg MCHC (32-36) g/dl RDW (11.5-14.0) % Plt Count (150-450) K/mm3 MPV (7.5-11.0) fl Gran % (36.0-66.0) % Eos # (Auto) (0-0.5) Absolute Lymphs (auto) (1.0-4.6) Absolute Monos (auto) (0.0-1.3) Lymphocytes % (24.0-44.0) % Monocytes % (0.0-12.0) % Eosinophils % (0.00-5.0) % Basophils % (0.0-0.4) % Absolute Granulocytes (1.4-6.9) Basophils # (0-0.4) Sodium (137-145) mmol/L Potassium (3.5-5.1) mmol/L Chloride (98-107) mmol/L Carbon Dioxide (22-30) mmol/L Anion Gap (5-15) MEQ/L BUN (7-17) mg/dL Creatinine (0.52-1.04) mg/dL Estimated GFR ML/MIN Glucose (74-106) mg/dL Calcium (8.4-10.2) mg/dL Total Bilirubin (0.2-1.3) mg/dL AST (14-36) U/L ALT (0-35) U/L Alkaline Phosphatase (38-126) U/L Serum Total Protein (6.3-8.2) g/dL Albumin (3.5-5.0) g/dL Urine Color YELLOW (YELLOW) Urine Appearance CLEAR (CLEAR) Urine pH 6.0 (5-6) Ur Specific [place] 1.010 (1.005-1.025) Urine Protein NEGATIVE (Negative) Urine Ketones NEGATIVE (NEGATIVE) Urine Blood NEGATIVE (0-5) Sarabjit/ul Urine Nitrite NEGATIVE (NEGATIVE) Urine Bilirubin NEGATIVE (NEGATIVE) Urine Urobilinogen NEGATIVE (0-1) mg/dL Ur Leukocyte Esterase NEGATIVE (NEGATIVE) Urine WBC (Auto) 0-2 (0-5) /HPF Urine RBC (Auto) 0-2 (0-2) /HPF U Epithel Cells (Auto) RARE (FEW) /HPF Urine Bacteria (Auto) NONE SEEN (NEGATIVE) /HPF Urine Mucus (Auto) SLIGHT (NEGATIVE) /HPF Urine Culture Reflexed NO (NO) Urine Glucose NEGATIVE (NEGATIVE) mg/dL Urine HCG, Qual NEGATIVE (Negative) Salicylates (2-20) mg/dL Urine Opiates Level NEGATIVE (NEGATIVE) Ur Methadone NEGATIVE (NEGATIVE) Acetaminophen (10-30) ug/ml Urine Barbiturates NEGATIVE (NEGATIVE) Ur Phencyclidine (PCP) NEGATIVE (NEGATIVE) Urine Amphetamine NEGATIVE (NEGATIVE) U Benzodiazepine Level POSITIVE (NEGATIVE) Urine Cocaine NEGATIVE (NEGATIVE) Urine Marijuana (THC) NEGATIVE (NEGATIVE) Ethyl Alcohol (0-10) mg/dL 05/24/20 05/24/20 Range/Units 12:15 12:15 WBC 10.1 (4.0-10.5) K/mm3 RBC 4.41 (4.1-5.4) M/mm3 Hgb 12.3 (12.0-16.0) gm/dl Hct 38.9 (35-47) % MCV 88.2 (78-100) fl MCH 27.9 (26-32) pg MCHC 31.6 L (32-36) g/dl RDW 13.9 (11.5-14.0) % Plt Count 161 (150-450) K/mm3 MPV 10.5 (7.5-11.0) fl Gran % 68.8 H (36.0-66.0) % Eos # (Auto) 0.23 (0-0.5) Absolute Lymphs (auto) 2.12 (1.0-4.6) Absolute Monos (auto) 0.75 (0.0-1.3) Lymphocytes % 21.1 L (24.0-44.0) % Monocytes % 7.5 (0.0-12.0) % Eosinophils % 2.3 (0.00-5.0) % Basophils % 0.3 (0.0-0.4) % Absolute Granulocytes 6.92 H (1.4-6.9) Basophils # 0.03 (0-0.4) Sodium 135 L (137-145) mmol/L Potassium 4.1 (3.5-5.1) mmol/L Chloride 102 (98-107) mmol/L Carbon Dioxide 29 (22-30) mmol/L Anion Gap 8.0 (5-15) MEQ/L BUN 13 (7-17) mg/dL Creatinine 0.61 (0.52-1.04) mg/dL Estimated GFR > 60.0 ML/MIN Glucose 87 (74-106) mg/dL Calcium 9.4 (8.4-10.2) mg/dL Total Bilirubin 0.50 (0.2-1.3) mg/dL AST 141 H (14-36) U/L ALT 93 H (0-35) U/L Alkaline Phosphatase 166 H (38-126) U/L Serum Total Protein 7.2 (6.3-8.2) g/dL Albumin 3.8 (3.5-5.0) g/dL Urine Color (YELLOW) Urine Appearance (CLEAR) Urine pH (5-6) Ur Specific [place] (1.005-1.025) Urine Protein (Negative) Urine Ketones (NEGATIVE) Urine Blood (0-5) Sarabjit/ul Urine Nitrite (NEGATIVE) Urine Bilirubin (NEGATIVE) Urine Urobilinogen (0-1) mg/dL Ur Leukocyte Esterase (NEGATIVE) Urine WBC (Auto) (0-5) /HPF Urine RBC (Auto) (0-2) /HPF U Epithel Cells (Auto) (FEW) /HPF Urine Bacteria (Auto) (NEGATIVE) /HPF Urine Mucus (Auto) (NEGATIVE) /HPF Urine Culture Reflexed (NO) Urine Glucose (NEGATIVE) mg/dL Urine HCG, Qual (Negative) Salicylates < 1.0 L (2-20) mg/dL Urine Opiates Level (NEGATIVE) Ur Methadone (NEGATIVE) Acetaminophen < 10 L (10-30) ug/ml Urine Barbiturates (NEGATIVE) Ur Phencyclidine (PCP) (NEGATIVE) Urine Amphetamine (NEGATIVE) U Benzodiazepine Level (NEGATIVE) Urine Cocaine (NEGATIVE) Urine Marijuana (THC) (NEGATIVE) Ethyl Alcohol < 10 (0-10) mg/dL - Progress Progress: improved Progress Note: 05/24/20 12:31 CPS here to inform the patient that her children are being taken away from her. 05/24/20 13:26 Patient suddenly appears to be more awake than when she initially came in. She says she has back pain that is "killing her". I offered her Tylenol or ibuprofen. She stated that neither 1 of these medicines help her. Patient asked if she could get her discharge papers. Patient was told that her work-up was not complete but she wanted to go home anyway. Patient was told that she would need to sign an AMA form. The risks of worsening condition and possible was discussed with her. Patient wants to go home anyway. Again, she states that she is not suicidal or homicidal. 05/24/20 13:30 Counseled pt/family regarding: lab results, diagnosis, need for follow-up - Departure Departure Disposition: AMA Clinical Impression: Syncopal episodes, Sinus tachycardia Condition: Fair Critical Care Time: No Referrals: CAMPBELL JONES [Primary Care Provider] -
[2020-05-24] MEDS ORDERED: Sodium Chloride 0.9% 1000 ML 1,000 ML IV STA (11:52)
[2020-05-24 12:34] LABS: Appearance CLEAR (CLEAR); Bilirubin NEGATIVE (NEGATIVE); Blood NEGATIVE Ery/ul (0-5); Epithelial Cells RARE /HPF (FEW); Glucose NEGATIVE (NEGATIVE); Ketones NEGATIVE (NEGATIVE); Leukocyte Esterase NEGATIVE (NEGATIVE); Mucus SLIGHT /HPF (NEGATIVE); Nitrite NEGATIVE (NEGATIVE); Protein,Urine Dip NEGATIVE (Negative); RBC 0-2 /HPF (0-2); Urobilinogen NEGATIVE mg/dL (0-1); WBC 0-2 /HPF (0-5)
[2020-05-24 12:36] LABS: Absolute Neutrophil Ct (ANC) 6.92 (1.4-6.9); BASOPHIL % 0.3 % (0.0-0.4); Basophil (Absolute #) 0.03 (0-0.4); Eosinophil % 2.3 % (0.00-5.0); Eosinophil (Absolute #) 0.23 (0-0.5); Hematocrit 38.9 % (35-47); Hemoglobin 12.3 gm/dl (12.0-16.0); Lymphocyte (Absolute #) 2.12 (1.0-4.6); Lymphocytes % 21.1 % (24.0-44.0); Mean Cell Volume 88.2 fl (78-100); Mean Corpuscular Hemoglobin 27.9 pg (26-32); Mean Corpuscular Hgb Concent. 31.6 g/dl (32-36); Mean Platelet Volume 10.5 fl (7.5-11.0); Monocyte (Absolute #) 0.75 (0.0-1.3); Monocytes % 7.5 % (0.0-12.0); Neutrophil % 68.8 % (36.0-66.0); Platelet Count 161 K/mm3 (150-450); Red Blood Count 4.41 M/mm3 (4.1-5.4); Red Cell Distribution Width 13.9 % (11.5-14.0); White Blood Count 10.1 K/mm3 (4.0-10.5)
[2020-05-24 12:38] LABS: ALBUMIN 3.8 g/dL (3.5-5.0); ALKALINE PHOSPHATASE 166 U/L (38-126); BLOOD UREA NITROGEN 13 mg/dL (7-17); CHLORIDE 102 mmol/L (98-107); Calcium 9.4 mg/dL (8.4-10.2); Carbon Dioxide 29 mmol/L (22-30); Creatinine 1 0.61 mg/dL (0.52-1.04); EST GLOMERULAR FILTRATION RATE > 60.0 ML/MIN; Glucose 87 mg/dL (74-106); Potassium 4.1 mmol/L (3.5-5.1); SGOT/AST 141 U/L (14-36); SGPT/ALT 93 U/L (0-35); SODIUM 135 mmol/L (137-145); Total Protein 7.2 g/dL (6.3-8.2)
[2020-05-24 12:39] LABS: Bacteria NONE SEEN /HPF (NEGATIVE)
[2020-05-24 12:44] LABS: ACETAMINOPHEN < 10 ug/ml (10-30); ETHYL ALCOHOL < 10 mg/dL (0-10); SALICYLATE < 1.0 mg/dL (2-20)
[2020-05-24 12:59] LABS: Amphetamine,Urine NEGATIVE (NEGATIVE); Barbiturate,Urine NEGATIVE (NEGATIVE); Benzodiazepine,Urine POSITIVE (NEGATIVE); Cocaine,Urine NEGATIVE (NEGATIVE); Methadone,Urine NEGATIVE (NEGATIVE); Opiate,Urine NEGATIVE (NEGATIVE); PCP,Urine NEGATIVE (NEGATIVE); THC,Urine NEGATIVE (NEGATIVE)
[2020-05-24 13:28] VITALS: BP 131/88; PULSE 122; O2SAT 98
--- NOTE | 2020-05-24 13:36 | XRAY ---
Indication: Syncope. Impairment. Multiple contiguous axial images obtained through the head without contrast. Comparison: December 15, 2019. Normal appearing brain parenchyma, ventricles, and bony calvarium. Visualized paranasal sinuses and mastoid air cells are clear. Impression: Continued normal CT head without contrast exam.
== END 2020-05-24 13:38 | disposition left against medical advice (07) ==
LOC: ED 10:50
DX: R55 Syncope and collapse (principal); R00.0 Tachycardia, unspecified; I10 Essential (primary) hypertension
CPT/HCPCS: 36415; 70450; 80053; 80307; 81001; 84703; 85025; 93005; 94760; 99284; G0480; A9270-GY

== ENCOUNTER 2020-05-24 15:30 | Emergency (ER) | payer OTHER ==
--- NOTE | 2020-05-24 15:38 | ERPHSYRPT ---
- History of Present Illness Time Seen by Provider: 05/24/20 15:33 Source: patient, police Exam Limitations: clinical condition Physician History: This is a 39-year-old white female who was just discharged from the emergency room earlier today. She was asked on several occasions by both the physician and the nurses if she was suicidal or homicidal she denied these entities. Patient was not held against her will and left AMA. The police brought her back into the emergency department stating that she is going to kill herself with an overdose of Tylenol. She did not take any Tylenol or other illicit, nonillicit, prescription drugs. She was only gone approximately an hour to from this most recent emergency room evaluation. Patient had a complete work-up short time ago which will not be repeated at this time. What seemed to change was CPS came to deliver her the news that her children are being taken away from her. Timing/Duration: today Severity of Symptoms-Max: moderate Severity of Symptoms-Current: moderate Context related to: other (CPS are taking her children away from her) Suicidal thoughts: specific plan (Tylenol overdose) Associated Symptoms: angry, depressed, frustrated Previous symptoms: same symptoms as today Allergies/Adverse Reactions: tramadol HCl [From [facility]] Allergy (Verified 05/24/20 15:39) Home Medications: Benztropine Mesylate 1 mg PO DAILY 12/15/19 [History] Clonazepam 1 mg PO BID PRN PRN 12/15/19 [History] Prazosin HCl 1 mg PO DAILY 12/15/19 [History] Propranolol HCl 10 mg PO BID 12/15/19 [History] Venlafaxine HCl [Venlafaxine HCl ER] 150 mg PO DAILY 12/15/19 [History] ziprasidone HCL [Ziprasidone HCl] 80 mg PO HS 01/20/20 [History] Hx Tetanus, Diphtheria Vaccination/Date Given: Yes Hx Influenza Vaccination/Date Given: No Hx Pneumococcal Vaccination/Date Given: No Travel Risk - International Travel Have you traveled outside of the country in past 3 weeks: No - Coronavirus Screening Are you exhibiting any of the following symptoms?: No Close contact with a COVID-19 positive Pt in past 14-21 Days: No - Past Medical History Pertinent Past Medical History: Yes Neurological History: Seizures ENT History: No Pertinent History Cardiac History: Hypertension Respiratory History: No Pertinent History Endocrine Medical History: No Pertinent History Musculoskeletal History: Degenerative Disk Disease, Rheumatoid Arthritis GI Medical History: No Pertinent History History: No Pertinent History Psycho-Social History: Bipolar, Depression Female Reproductive Disorders: Fibroids Other Medical History: STATES SHE HAS RHEUMATOID ARTHRITIS BUT 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 HX OF SEIZURE DISORDER BUT NOT ON ANY MEDICATION X 2 YEARS WITH NO SEIZURES FOR 1-1/2 YE - Past Surgical History Past Surgical History: Yes Neuro Surgical History: No Pertinent History Cardiac: No Pertinent History Respiratory: No Pertinent History Gastrointestinal: Cholecystectomy Genitourinary: No Pertinent History Musculoskeletal: No Pertinent History Female Surgical History: Tubal Ligation - Social History Smoking Status: Former smoker How long have you smoked: 15 Exposure to second hand smoke: Yes Drug Use: none Patient Lives Alone: No - Review of Systems Constitutional: No Symptoms Eyes: No Symptoms Ears, Nose, & Throat: No Symptoms Respiratory: No Symptoms Cardiac: No Symptoms Abdominal/Gastrointestinal: No Symptoms Genitourinary Symptoms: No Symptoms Musculoskeletal: No Symptoms Skin: No Symptoms Neurological: No Symptoms Psychological: Drug Abuse, Depression, Suicidal Ideations Endocrine: No Symptoms Hematologic/Lymphatic: No Symptoms Immunological/Allergic: No Symptoms All Other Systems: Reviewed and Negative - Nursing Vital Signs Nursing Vital Signs: Initial Vital Signs Temperature 97.4 F 05/24/20 15:31 Pulse Rate 118 H 05/24/20 15:31 Respiratory Rate 28 H 05/24/20 15:31 Blood Pressure 130/84 05/24/20 15:31 O2 Sat by Pulse Oximetry 99 05/24/20 15:31 Pain Scale Pain Intensity 9 - Physical Exam General Appearance: no apparent distress, alert, anxiety, obese Eyes, Ears, Nose, Throat Exam: normal ENT inspection, moist mucous membranes Neck Exam: normal inspection, non-tender, supple, full range of motion Respiratory Exam: normal breath sounds, lungs clear, airway intact, No chest tenderness, No respiratory distress Cardiovascular Exam: tachycardia Gastrointestinal/Abdominal Exam: soft, normal bowel sounds, No tenderness Extremities Exam: normal inspection, normal range of motion, No evidence of injury Current Suicidality: has suicide plan Neurological Exam: alert, calm, advice nurse II-XII nml as tested, anxious, depressed affect Appearance: appropriate appearance, appropriate insight Behavior/Eye Contact/Speech: alert & cooperative, good eye contact Skin Exam: normal color, warm, dry SpO2 Interpretation: normal O2 Delivery: Room Air Ordered Tests: Active Orders 24 hr Category Date Time Status Psychiatric Consult STAT Cons 05/24/20 15:39 Active Medication Summary Discontinued Medications Generic Name Dose Route Start Last Admin Trade Name Cady PRN Reason Stop Dose Admin Ibuprofen 600 mg 05/24/20 17:05 Motrin 600 Mg PO 05/24/20 17:06 STAT ONE - Progress Progress: unchanged, re-examined Progress Note: 05/24/20 17:12 The paperwork was sent to inpatient psychiatric facility at [facility]. Jacquie Rm, nurse, presented to the case to the [facility] physician who accepted this patient to their facility under emergency fpc. Counseled pt/family regarding: lab results, diagnosis, need for follow-up, rad results - Departure Departure Disposition: Transfer Clinical Impression: Suicidal ideation, History of drug abuse Condition: Stable Critical Care Time: No Referrals: CAMPBELL JONES [Primary Care Provider] -
[2020-05-24] MEDS ORDERED: MOTRIN 600 MG PO ONE (17:05)
[2020-05-24] MEDS ORDERED: MOTRIN 600 MG ONE (17:12)
[2020-05-24 18:11] VITALS: BP 122/72; PULSE 110; O2SAT 97
== END 2020-05-24 18:21 | disposition short-term general hospital (02) ==
LOC: ED 15:30
DX: R45.851 Suicidal ideations (principal); F19.11 Other psychoactive substance abuse, in remission
CPT/HCPCS: 99284; A9270-GY

== ENCOUNTER 2021-03-02 17:06 | Emergency (ER) | payer OTHER ==
--- NOTE | 2021-03-02 17:11 | ERPHSYRPT ---
- History of Present Illness Time Seen by Provider: 03/02/21 17:11 Source: patient Exam Limitations: no limitations Physician History: This is a 40-year-old white female who accidentally took 6 tablets of 80 mg strength Geodon instead have her usual 20 mg. She took this about 6:00 in the morning this morning. It was not intentional. She is not suicidal or homicidal. She fell asleep and did not realize what she had done until she woke up after 1 PM. She did not feel well and felt worse after she realized what she had done. She wanted to be evaluated in the emergency department to make sure she was safe. Poison control was notified and they said to use benzodiazepines as needed. They also said that she has gone beyond the 8 hours postingestion and should be safe enough to go home. They did recommend a work-up which we are performing. Patient has a history of bipolar disorder, seizures, hypertension, degenerative disc disease and rheumatoid arthritis Timing/Duration: today Severity of Symptoms-Max: mild Severity of Symptoms-Current: mild Context related to: other (Accidental ingestion of greater strength of her medication and then realized) Associated Symptoms: denies symptoms, ingestion (Accidental) Previous symptoms: no prior history Allergies/Adverse Reactions: tramadol HCl [From [facility]] Allergy (Verified 03/02/21 17:11) Home Medications: ziprasidone HCL [Ziprasidone HCl] 20 mg PO HS 01/20/20 [History] Hx Tetanus, Diphtheria Vaccination/Date Given: Yes Hx Influenza Vaccination/Date Given: No Hx Pneumococcal Vaccination/Date Given: No Travel Risk - International Travel Have you traveled outside of the country in past 3 weeks: No - Coronavirus Screening Are you exhibiting any of the following symptoms?: No Close contact with a COVID-19 positive Pt in past 14-21 Days: No - Past Medical History Pertinent Past Medical History: Yes Neurological History: Seizures ENT History: No Pertinent History Cardiac History: Hypertension Respiratory History: No Pertinent History Endocrine Medical History: No Pertinent History Musculoskeletal History: Degenerative Disk Disease, Rheumatoid Arthritis GI Medical History: No Pertinent History History: No Pertinent History Psycho-Social History: Bipolar, Depression Female Reproductive Disorders: Fibroids Other Medical History: STATES SHE HAS RHEUMATOID ARTHRITIS BUT 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 HX OF SEIZURE DISORDER BUT NOT O N ANY MEDICATION X 2 YEARS WITH NO SEIZURES FOR 1-1/2 YE - Past Surgical History Past Surgical History: Yes Neuro Surgical History: No Pertinent History Cardiac: No Pertinent History Respiratory: No Pertinent History Gastrointestinal: Cholecystectomy Genitourinary: No Pertinent History Musculoskeletal: No Pertinent History Female Surgical History: Tubal Ligation - Social History Smoking Status: Former smoker How long have you smoked: 15 Exposure to second hand smoke: Yes Drug Use: none Patient Lives Alone: No - Review of Systems Constitutional: No Symptoms Eyes: No Symptoms Ears, Nose, & Throat: No Symptoms Respiratory: No Symptoms Cardiac: No Symptoms Abdominal/Gastrointestinal: No Symptoms Genitourinary Symptoms: No Symptoms Musculoskeletal: No Symptoms Skin: No Symptoms Neurological: No Symptoms Psychological: Anxiety, No Suicidal Ideations, No Homicidal Ideations, No Hallucinations Endocrine: No Symptoms Hematologic/Lymphatic: No Symptoms Immunological/Allergic: No Symptoms All Other Systems: Reviewed and Negative - Nursing Vital Signs Nursing Vital Signs: Initial Vital Signs Temperature 98.5 F 03/02/21 17:12 Pulse Rate 117 H 03/02/21 17:12 Respiratory Rate 22 03/02/21 17:12 Blood Pressure 154/94 03/02/21 17:12 O2 Sat by Pulse Oximetry 97 03/02/21 17:12 Pain Scale Pain Intensity 0 - Physical Exam General Appearance: no apparent distress, alert, anxiety Eyes, Ears, Nose, Throat Exam: normal ENT inspection, moist mucous membranes Neck Exam: normal inspection, non-tender, supple, full range of motion Respiratory Exam: normal breath sounds, lungs clear, airway intact, No chest ten derness, No respiratory distress Cardiovascular Exam: tachycardia Gastrointestinal/Abdominal Exam: soft, normal bowel sounds, No tenderness Current Suicidality: denies suicide plan Neurological Exam: alert, calm, dot etcher II-XII nml as tested, oriented x 3, anxious Appearance: appropriate appearance, appropriate insight, neat, no memory impairment Behavior/Eye Contact/Speech: alert & cooperative, good eye contact, normal speech Thoughts/Hallucinations: normal thought pattern, no apparent hallucination Skin Exam: normal color, warm, dry SpO2 Interpretation: normal O2 Delivery: Room Air - Course Nursing assessment & vital signs reviewed: Yes EKG Interpreted by Me: RATE, Sinus Tach, NORMAL AXIS, NORMAL INTERVALS, NORMAL QRS, NORMAL ST-T, Other (There are no acute ischemic changes on today's EKG. There is no change from her EKG dated May 24, 2020) Ordered Tests: Active Orders 24 hr Category Date Time Status Clean Catch Urine Specimen STAT Care 03/02/21 17:11 Active EKG-ER Only STAT Care 03/02/21 17:11 Active ACETAMINOPHEN Stat Lab 03/02/21 17:45 Completed CBC W DIFF Stat Lab 03/02/21 17:45 Completed CMP Stat Lab 03/02/21 17:45 Completed ETHYL ALCOHOL Stat Lab 03/02/21 17:45 Completed SALICYLATE Stat Lab 03/02/21 17:45 Completed UA W/RFX UR CULTURE Stat Lab 03/02/21 17:19 Completed Urine Triage Profile Stat Lab 03/02/21 17:19 Completed Medication Summary Generic Name Dose Route Start Last Admin Trade Name Freq PRN Reason Stop Dose Admin Sodium Chloride 1,000 mls @ 999 mls/hr 03/02/21 17:33 03/02/21 17:52 Sodium Chloride 0.9% 1000 Ml IV 03/02/21 18:33 999 mls/hr .[id number] STA Administration Discontinued Medications Generic Name Dose Route Start Last Admin Trade Name Freq PRN Reason Stop Dose Admin Sodium Chloride Confirm 03/02/21 17:47 Sodium Chloride 0.9% 1000 Ml Administered 03/02/21 17:48 Dose 1,000 mls @ ud .ROUTE .STK-MED ONE Lorazepam 1 mg 03/02/21 17:34 03/02/21 17:57 Ativan 2 Mg/1 Ml Vial IV 03/02/21 17:35 1 mg STAT ONE Administration Lorazepam Confirm 03/02/21 17:47 Ativan 2 Mg/1 Ml Vial Administered 03/02/21 17:48 Dose 2 mg .ROUTE .STK-MED ONE Ondansetron HCl 4 mg 03/02/21 17:34 03/02/21 17:54 Zofran 4 Mg/2 Ml Vial IV 03/02/21 17:35 4 mg STAT ONE Administration Ondansetron HCl Confirm 03/02/21 17:47 Zofran 4 Mg/2 Ml Vial Administered 03/02/21 17:48 Dose 4 mg .ROUTE .STK-MED ONE Lab/Rad Data: Laboratory Result Diagrams 03/02/21 17:45 03/02/21 17:45 Laboratory Results 09/30/21 09/30/21 09/30/21 Range/Units 17:45 17:45 17:19 WBC 6.3 (4.0-10.5) K/mm3 RBC 4.99 (4.1-5.4) M/mm3 Hgb 14.8 (12.0-16.0) gm/dl Hct 45.0 (35-47) % MCV 90.2 (78-100) fl MCH 29.7 (26-32) pg MCHC 32.9 (32-36) g/dl RDW 14.1 H (11.5-14.0) % Plt Count 110 L (150-450) K/mm3 MPV 11.5 H (7.5-11.0) fl Gran % 74.0 H (36.0-66.0) % Eos # (Auto) 0 (0-0.5) Absolute Lymphs (auto) 1.13 (1.0-4.6) Absolute Monos (auto) 0.49 (0.0-1.3) Lymphocytes % 18.0 L (24.0-44.0) % Monocytes % 7.8 (0.0-12.0) % Eosinophils % 0.0 (0.00-5.0) % Basophils % 0.2 (0.0-0.4) % Absolute Granulocytes 4.66 (1.4-6.9) Basophils # 0.01 (0-0.4) Sodium 140 (137-145) mmol/L Potassium 3.7 (3.5-5.1) mmol/L Chloride 112 H (98-107) mmol/L Carbon Dioxide 18 L (22-30) mmol/L Anion Gap 13.6 (5-15) MEQ/L BUN 7 (7-17) mg/dL Creatinine 0.50 L (0.52-1.04) mg/dL Estimated GFR > 60.0 ML/MIN Glucose 133 H (74-106) mg/dL Calcium 9.1 (8.4-10.2) mg/dL Total Bilirubin 0.70 (0.2-1.3) mg/dL AST 147 H (14-36) U/L ALT 95 H (0-35) U/L Alkaline Phosphatase 210 H (38-126) U/L Serum Total Protein 7.4 (6.3-8.2) g/dL Albumin 3.8 (3.5-5.0) g/dL Urine Color (YELLOW) Urine Appearance (CLEAR) Urine pH (5-6) Ur Specific [place] (1.005-1.025) Urine Protein (Negative) Urine Ketones (NEGATIVE) Urine Blood (0-5) Sarabjit/ul Urine Nitrite (NEGATIVE) Urine Bilirubin (NEGATIVE) Urine Urobilinogen (0-1) mg/dL Ur Leukocyte Esterase (NEGATIVE) Urine WBC (Auto) (0-5) /HPF Urine RBC (Auto) (0-2) /HPF U Epithel Cells (Auto) (FEW) /HPF Urine Mucus (Auto) (NEGATIVE) /HPF Urine Culture Reflexed (NO) Urine Glucose (NEGATIVE) mg/dL Salicylates < 1.0 L (2-20) mg/dL Urine Opiates Level NEGATIVE (NEGATIVE) Ur Methadone NEGATIVE (NEGATIVE) Acetaminophen < 10 L (10-30) ug/ml Urine Barbiturates NEGATIVE (NEGATIVE) Ur Phencyclidine (PCP) NEGATIVE (NEGATIVE) Urine Amphetamine NEGATIVE (NEGATIVE) U Benzodiazepine Level NEGATIVE (NEGATIVE) Urine Cocaine NEGATIVE (NEGATIVE) Urine Marijuana (THC) NEGATIVE (NEGATIVE) Ethyl Alcohol < 10 (0-10) mg/dL 03/02/21 Range/Units 17:19 WBC (4.0-10.5) K/mm3 RBC (4.1-5.4) M/mm3 Hgb (12.0-16.0) gm/dl Hct (35-47) % MCV (78-100) fl MCH (26-32) pg MCHC (32-36) g/dl RDW (11.5-14.0) % Plt Count (150-450) K/mm3 MPV (7.5-11.0) fl Gran % (36.0-66.0) % Eos # (Auto) (0-0.5) Absolute Lymphs (auto) (1.0-4.6) Absolute Monos (auto) (0.0-1.3) Lymphocytes % (24.0-44.0) % Monocytes % (0.0-12.0) % Eosinophils % (0.00-5.0) % Basophils % (0.0-0.4) % Absolute Granulocytes (1.4-6.9) Basophils # (0-0.4) Sodium (137-145) mmol/L Potassium (3.5-5.1) mmol/L Chloride (98-107) mmol/L Carbon Dioxide (22-30) mmol/L Anion Gap (5-15) MEQ/L BUN (7-17) mg/dL Creatinine (0.52-1.04) mg/dL Estimated GFR ML/MIN Glucose (74-106) mg/dL Calcium (8.4-10.2) mg/dL Total Bilirubin (0.2-1.3) mg/dL AST (14-36) U/L ALT (0-35) U/L Alkaline Phosphatase (38-126) U/L Serum Total Protein (6.3-8.2) g/dL Albumin (3.5-5.0) g/dL Urine Color YELLOW (YELLOW) Urine Appearance SLIGHTLY CLOUDY (CLEAR) Urine pH 5.0 (5-6) Ur Specific [place] 1.015 (1.005-1.025) Urine Protein NEGATIVE (Negative) Urine Ketones NEGATIVE (NEGATIVE) Urine Blood NEGATIVE (0-5) Sarabjit/ul Urine Nitrite NEGATIVE (NEGATIVE) Urine Bilirubin NEGATIVE (NEGATIVE) Urine Urobilinogen 2 (0-1) mg/dL Ur Leukocyte Esterase NEGATIVE (NEGATIVE) Urine WBC (Auto) 6-10 (0-5) /HPF Urine RBC (Auto) NONE (0-2) /HPF U Epithel Cells (Auto) RARE (FEW) /HPF Urine Mucus (Auto) SLIGHT (NEGATIVE) /HPF Urine Culture Reflexed NO (NO) Urine Glucose NEGATIVE (NEGATIVE) mg/dL Salicylates (2-20) mg/dL Urine Opiates Level (NEGATIVE) Ur Methadone (NEGATIVE) Acetaminophen (10-30) ug/ml Urine Barbiturates (NEGATIVE) Ur Phencyclidine (PCP) (NEGATIVE) Urine Amphetamine (NEGATIVE) U Benzodiazepine Level (NEGATIVE) Urine Cocaine (NEGATIVE) Urine Marijuana (THC) (NEGATIVE) Ethyl Alcohol (0-10) mg/dL - Progress Progress: improved Counseled pt/family regarding: lab results, diagnosis, need for follow-up - Departure Departure Disposition: Home Clinical Impression: Accidental overdose Condition: Stable Critical Care Time: No Referrals: CAMPBELL COLEMAN [Primary Care Provider] - Additional Instructions: Drink plenty of fluids. Avoid your Geodon usage until tomorrow morning 03/03/2021.
[2021-03-02 17:19] VITALS: BP 154/94; PULSE 117; O2SAT 97
[2021-03-02] MEDS ORDERED: Sodium Chloride 0.9% 1000 ML 1,000 ML IV STA (17:33)
[2021-03-02] MEDS ORDERED: Ativan 2 MG/1 ML VIAL IV ONE (17:34)
[2021-03-02] MEDS ORDERED: Zofran 4 MG/2 ML VIAL IV ONE (17:34)
[2021-03-02] MEDS ORDERED: Sodium Chloride 0.9% 1000 ML 1,000 ML ONE (17:47)
[2021-03-02] MEDS ORDERED: Zofran 4 MG/2 ML VIAL ONE (17:47)
[2021-03-02] MEDS ORDERED: Ativan 2 MG/1 ML VIAL ONE (17:47)
[2021-03-02 17:48] LABS: Absolute Neutrophil Ct (ANC) 4.66 (1.4-6.9); BASOPHIL % 0.2 % (0.0-0.4); Basophil (Absolute #) 0.01 (0-0.4); Eosinophil (Absolute #) 0 (0-0.5); Hemoglobin 14.8 gm/dl (12.0-16.0); Lymphocyte (Absolute #) 1.13 (1.0-4.6); Mean Cell Volume 90.2 fl (78-100); Mean Corpuscular Hemoglobin 29.7 pg (26-32); Mean Corpuscular Hgb Concent. 32.9 g/dl (32-36); Mean Platelet Volume 11.5 fl (7.5-11.0); Monocyte (Absolute #) 0.49 (0.0-1.3); Monocytes % 7.8 % (0.0-12.0); Platelet Count 110 K/mm3 (150-450); Red Blood Count 4.99 M/mm3 (4.1-5.4); Red Cell Distribution Width 14.1 % (11.5-14.0); White Blood Count 6.3 K/mm3 (4.0-10.5)
[2021-03-02 17:52] LABS: Appearance SLIGHTLY CLOUDY (CLEAR); Bilirubin NEGATIVE (NEGATIVE); Blood NEGATIVE Ery/ul (0-5); Epithelial Cells RARE /HPF (FEW); Glucose NEGATIVE (NEGATIVE); Ketones NEGATIVE (NEGATIVE); Leukocyte Esterase NEGATIVE (NEGATIVE); Mucus SLIGHT /HPF (NEGATIVE); Nitrite NEGATIVE (NEGATIVE); Protein,Urine Dip NEGATIVE (Negative); Specific Gravity 1.015 (1.005-1.025); Urobilinogen 2 mg/dL (0-1)
[2021-03-02 17:55] LABS: ACETAMINOPHEN < 10 ug/ml (10-30); ALBUMIN 3.8 g/dL (3.5-5.0); ALKALINE PHOSPHATASE 210 U/L (38-126); ANION GAP 13.6 MEQ/L (5-15); BLOOD UREA NITROGEN 7 mg/dL (7-17); CHLORIDE 112 mmol/L (98-107); Calcium 9.1 mg/dL (8.4-10.2); Carbon Dioxide 18 mmol/L (22-30); EST GLOMERULAR FILTRATION RATE > 60.0 ML/MIN; ETHYL ALCOHOL < 10 mg/dL (0-10); Glucose 133 mg/dL (74-106); Potassium 3.7 mmol/L (3.5-5.1); SALICYLATE < 1.0 mg/dL (2-20); SGOT/AST 147 U/L (14-36); SGPT/ALT 95 U/L (0-35); SODIUM 140 mmol/L (137-145); Total Protein 7.4 g/dL (6.3-8.2)
[2021-03-02 18:04] LABS: Amphetamine,Urine NEGATIVE (NEGATIVE); Barbiturate,Urine NEGATIVE (NEGATIVE); Benzodiazepine,Urine NEGATIVE (NEGATIVE); Cocaine,Urine NEGATIVE (NEGATIVE); Methadone,Urine NEGATIVE (NEGATIVE); Opiate,Urine NEGATIVE (NEGATIVE); PCP,Urine NEGATIVE (NEGATIVE); THC,Urine NEGATIVE (NEGATIVE)
== END 2021-03-02 18:51 | disposition home or self-care (01) ==
LOC: ED 17:06
DX: T43.591A Poisoning by other antipsychotics and neuroleptics, accidental (unintentional), initial encounter (principal)
CPT/HCPCS: 36415; 80053; 80307; 81001; 85025; 93005; 96374; 96375; 99284; G0480; J2060; J2405

== ENCOUNTER 2021-10-01 13:19 | Emergency (ER) | payer OTHER ==
[2021-10-01 14:16] LABS: Absolute Neutrophil Ct (ANC) 5.48 (1.4-6.9); Basophil (Absolute #) 0.04 (0-0.4); Eosinophil % 0.9 % (0.00-5.0); Eosinophil (Absolute #) 0.08 (0-0.5); Hemoglobin 15.4 gm/dl (12.0-16.0); Lymphocyte (Absolute #) 2.92 (1.0-4.6); Lymphocytes % 31.6 % (24.0-44.0); Mean Corpuscular Hemoglobin 30.1 pg (26-32); Mean Corpuscular Hgb Concent. 33.5 g/dl (32-36); Mean Platelet Volume 12.1 fl (7.5-11.0); Monocyte (Absolute #) 0.71 (0.0-1.3); Monocytes % 7.7 % (0.0-12.0); Neutrophil % 59.4 % (36.0-66.0); Platelet Count 110 K/mm3 (150-450); Red Blood Count 5.11 M/mm3 (4.1-5.4); Red Cell Distribution Width 13.2 % (11.5-14.0); White Blood Count 9.2 K/mm3 (4.0-10.5)
[2021-10-01 14:17] LABS: INR 1.08 (0.8-3.0); PROTIME 12.8 SECONDS (9.4-12.5)
--- NOTE | 2021-10-01 14:18 | ERPHSYRPT ---
- History of Present Illness Source: patient Exam Limitations: other (Poor historian) Patient Subjective Stated Complaint: pt here for possible seizures, she states she has hx of seizures but has not been on any meds for 5 years, she co of over last 48 hours she has had episodes of shaky,heart racing and fussy feeling in head. Triage Nursing Assessment: pt alert, resp easy, skin w/d/p,face mask in place, abd soft, no edema noted , no shaking Physician History: 40 yo wf w vague h/o near syncope/palpatations/tunnel vision x 2 days. Pt has a h/o seizure do but has not taken Keppra x 5 yrs. She denies [place]/Fever/head trauma/N/V/D/incontinence of bowel-bladder/chest pain/focal weakness/dysuria/hematuria. Prior Episodes: multiple episodes today, remote history Timing/Duration: yesterday Precipitating Factors: none, lightheadedness, rapid heart beat Loss of Consciousness: no loss of consciousness Charcter of event(s): felt faint, almost passed out Allergies/Adverse Reactions: tramadol HCl [From [facility]] Allergy (Verified 10/01/21 13:44) Hx Tetanus, Diphtheria Vaccination/Date Given: Yes Hx Influenza Vaccination/Date Given: No Hx Pneumococcal Vaccination/Date Given: No Immunizations Up to Date: Yes Travel Risk - International Travel Have you traveled outside of the country in past 3 weeks: No - Coronavirus Screening Are you exhibiting any of the following symptoms?: No Close contact with a COVID-19 positive Pt in past 14-21 Days: No - Vaccine Status Have you recieved a Covid-19 vaccination: Yes Complex Director: Moderna - Vaccination Dates Date of 2cond Vaccination (if applicable): November 2020 - Past Medical History Pertinent Past Medical History: Yes Neurological History: Seizures ENT History: No Pertinent History Cardiac History: Hypertension Respiratory History: No Pertinent History Endocrine Medical History: No Pertinent History Musculoskeletal History: Degenerative Disk Disease, Rheumatoid Arthritis GI Medical History: No Pertinent History History: No Pertinent History Psycho-Social History: Bipolar, Depression Female Reproductive Disorders: Fibroids Other Medical History: STATES SHE HAS RHEUMATOID ARTHRITIS BUT DOES NOT FOLLOW- UP WITH [employer]GER [employer] OR TAKE ANY MEDICATION. HX OF SEIZURE DISORDER BUT NOT ON ANY MEDICATION X 2 YEARS WITH NO SEIZURES FOR 1-1/2 YE - Past Surgical History Past Surgical History: Yes Neuro Surgical History: No Pertinent History Cardiac: No Pertinent History Respiratory: No Pertinent History Gastrointestinal: Cholecystectomy Genitourinary: No Pertinent History Musculoskeletal: No Pertinent History Female Surgical History: Tubal Ligation - Social History Smoking Status: Current every day smoker How long have you smoked: 15 Exposure to second hand smoke: Yes Drug Use: none Patient Lives Alone: No Significant Family History: no pertinent family hx - Female History Hx Last Menstrual Period: 3 weeks ago Hx Now: No - Review of Systems Constitutional: No Symptoms Eyes: No Symptoms, Vision Changes (Tunnel vision) Ears, Nose, & Throat: No Symptoms, Ear Pain, No Ear Discharge, No Hearing Changes, No Tinnitus, No Nose Pain, No Nose Congestion, No Nose Discharge Respiratory: No Symptoms Cardiac: No Symptoms, Palpitations Abdominal/Gastrointestinal: No Symptoms Genitourinary Symptoms: No Symptoms Musculoskeletal: No Symptoms Skin: No Symptoms Neurological: No Symptoms, Sensory Changes Psychological: No Symptoms Endocrine: No Symptoms Hematologic/Lymphatic: No Symptoms Immunological/Allergic: No Symptoms Physical Exam - Nursing Vital Signs Nursing Vital Signs: Initial Vital Signs Temperature 7.2 F 10/01/21 13:24 Pulse Rate 98 H 10/01/21 13:24 Respiratory Rate 18 10/01/21 13:24 Blood Pressure 142/106 10/01/21 13:24 O2 Sat by Pulse Oximetry 98 10/01/21 13:24 Pain Scale Pain Intensity 3 Mildly hypertensive - Rosemarie Coma Scale Best Eye Response ([place]): (4) open spontaneously Best Verbal Response ([place]): (5) oriented Best Motor Response (Rosemarie): (6) obeys commands [place] Total: 15 - Physical Exam General Appearance: no apparent distress Eye Exam: bilateral eye: normal inspection, PERRL, EOMI Ears, Nose, Throat Exam: normal ENT inspection, TMs normal, pharynx normal, moist mucous membranes Neck Exam: normal inspection, non-tender, supple, full range of motion, No meningismus, No mass, No Brudzinski, No Kernig's, No carotid bruit Respiratory: normal breath sounds, lungs clear, airway intact Cardiovascular: regular rate/rhythm, normal heart sounds, normal peripheral pulses, capillary refill <2 sec, No murmur Gastrointestinal: soft, normal bowel sounds Back Exam: normal inspection, normal range of motion, No CVA tenderness, No vertebral tenderness Extremity Exam: normal inspection, normal range of motion Peripheral Pulses: carotid (R): 2+, carotid (L): 2+ Mental Status: alert, oriented x 3, 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 Exam: normal hearing, normal speech, PERRL, tongue midline, No abnormal eye position, No abnormal gag reflex, No abnormal pupil position, No abnormal speech, No facial asymmetry, No facial droop, No facial paresthesias, No facial weakness, No gaze palsy, No hearing deficit (R), No hearing deficit (L), No tongue deviation to R, No tongue deviation to L Coordination/Gait: normal gait, normal cerebellar function, negative Romberg's sign Motor/Sensory: no motor deficit, no sensory deficit, no pronator drift, negative Babinski's sign DTR: bicep (R): 2+, bicep (L): 2+ Skin Exam: normal color, warm, dry SpO2 Interpretation: normal SpO2: 98 O2 Delivery: Room Air - Course EKG Interpreted by Me: RATE (NSR/R99/Normal QT-QTc/Low voltage/No acute ST changes) - CT Exams Head CT Interpretation: Tele-radiologist Report (CT head NAD) Ordered Tests: Active Orders 24 hr Category Date Time Status EKG-ER Only STAT Care 10/01/21 14:10 Completed HEAD WITHOUT CONTRAST [CT] Stat Exams 10/01/21 16:49 Completed CBC W DIFF Stat Lab 10/01/21 14:10 Completed CMP Stat Lab 10/01/21 14:10 Completed ETHYL ALCOHOL Stat Lab 10/01/21 14:10 Completed PROTIME WITH INR Stat Lab 10/01/21 14:10 Completed PTT Stat Lab 10/01/21 14:10 Completed TROPONIN Q3H Lab 10/01/21 14:15 Completed UA W/RFX CULTURE Stat Lab 10/01/21 Completed Urine Triage Profile Stat Lab 10/01/21 14:23 Completed Lab/Rad Data: Laboratory Result Diagrams 10/01/21 14:10 10/01/21 14:10 Laboratory Results 10/01/21 10/01/21 10/01/21 Range/Units Unknown 14:23 14:15 WBC (4.0-10.5) K/mm3 RBC (4.1-5.4) M/mm3 Hgb (12.0-16.0) gm/dl Hct (35-47) % MCV (78-100) fl MCH (26-32) pg MCHC (32-36) g/dl RDW (11.5-14.0) % Plt Count (150-450) K/mm3 MPV (7.5-11.0) fl Gran % (36.0-66.0) % Eos # (Auto) (0-0.5) Absolute Lymphs (auto) (1.0-4.6) Absolute Monos (auto) (0.0-1.3) Lymphocytes % (24.0-44.0) % Monocytes % (0.0-12.0) % Eosinophils % (0.00-5.0) % Basophils % (0.0-0.4) % Absolute Granulocytes (1.4-6.9) Basophils # (0-0.4) PT (9.4-12.5) SECONDS INR (0.8-3.0) APTT (25.1-36.5) SECONDS Sodium (137-145) mmol/L Potassium (3.5-5.1) mmol/L Chloride (98-107) mmol/L Carbon Dioxide (22-30) mmol/L Anion Gap (5-15) MEQ/L BUN (7-17) mg/dL Creatinine (0.52-1.04) mg/dL Estimated GFR ML/MIN Glucose (74-106) mg/dL Calcium (8.4-10.2) mg/dL Total Bilirubin (0.2-1.3) mg/dL AST (14-36) U/L ALT (0-35) U/L Alkaline Phosphatase (38-126) U/L Troponin I < 0.012 (0.000-0.034) ng/mL Serum Total Protein (6.3-8.2) g/dL Albumin (3.5-5.0) g/dL Urinalys Dipstick Clnc MAIN LAB Urine Color YELLOW (YELLOW) Urine Appearance CLEAR (CLEAR) Urine pH 6.5 (5-6) Ur Specific [place] 1.020 (1.005-1.025) POC Urine Protein Conf NEGATIVE (Negative) Urine Ketones NEGATIVE (NEGATIVE) Urine Nitrite NEGATIVE (NEGATIVE) Urine Bilirubin NEGATIVE (NEGATIVE) Urine Urobilinogen 0.2 (0-1) mg/dL Urine Leukocytes NEGATIVE (NEGATIVE) Urine WBC (Auto) NONE (0-5) /HPF Urine RBC (Auto) NONE (0-2) /HPF U Epithel Cells (Auto) RARE (FEW) /HPF Urine Bacteria (Auto) NONE (NEGATIVE) /HPF Urine RBC NEGATIVE (0-5) Sarabjit/ul Urine Mucus (Auto) SLIGHT (NEGATIVE) /HPF Ur Culture Indicated? NO Urine Glucose NEGATIVE (NEGATIVE) mg/dL Urine Opiates Level NEGATIVE (NEGATIVE) Ur Methadone NEGATIVE (NEGATIVE) Urine Barbiturates NEGATIVE (NEGATIVE) Ur Phencyclidine (PCP) NEGATIVE (NEGATIVE) Urine Amphetamine NEGATIVE (NEGATIVE) U Benzodiazepine Level NEGATIVE (NEGATIVE) Urine Cocaine NEGATIVE (NEGATIVE) Urine Marijuana (THC) NEGATIVE (NEGATIVE) Ethyl Alcohol (0-10) mg/dL 10/01/21 10/01/21 10/01/21 Range/Units 14:10 14:10 14:10 WBC 9.2 (4.0-10.5) K/mm3 RBC 5.11 (4.1-5.4) M/mm3 Hgb 15.4 (12.0-16.0) gm/dl Hct 46.0 (35-47) % MCV 90.0 (78-100) fl MCH 30.1 (26-32) pg MCHC 33.5 (32-36) g/dl RDW 13.2 (11.5-14.0) % Plt Count 110 L (150-450) K/mm3 MPV 12.1 H (7.5-11.0) fl Gran % 59.4 (36.0-66.0) % Eos # (Auto) 0.08 (0-0.5) Absolute Lymphs (auto) 2.92 (1.0-4.6) Absolute Monos (auto) 0.71 (0.0-1.3) Lymphocytes % 31.6 (24.0-44.0) % Monocytes % 7.7 (0.0-12.0) % Eosinophils % 0.9 (0.00-5.0) % Basophils % 0.4 (0.0-0.4) % Absolute Granulocytes 5.48 (1.4-6.9) Basophils # 0.04 (0-0.4) PT 12.8 H (9.4-12.5) SECONDS INR 1.08 (0.8-3.0) APTT 42.9 H (25.1-36.5) SECONDS Sodium 136 L (137-145) mmol/L Potassium 4.0 (3.5-5.1) mmol/L Chloride 106 (98-107) mmol/L Carbon Dioxide 23 (22-30) mmol/L Anion Gap 11.9 (5-15) MEQ/L BUN 7 (7-17) mg/dL Creatinine 0.57 (0.52-1.04) mg/dL Estimated GFR > 60.0 ML/MIN Glucose 82 (74-106) mg/dL Calcium 8.9 (8.4-10.2) mg/dL Total Bilirubin 0.70 (0.2-1.3) mg/dL AST 185 H (14-36) U/L ALT 142 H (0-35) U/L Alkaline Phosphatase 216 H (38-126) U/L Troponin I (0.000-0.034) ng/mL Serum Total Protein 7.8 (6.3-8.2) g/dL Albumin 3.9 (3.5-5.0) g/dL Urinalys Dipstick Clnc Urine Color (YELLOW) Urine Appearance (CLEAR) Urine pH (5-6) Ur Specific [place] (1.005-1.025) POC Urine Protein Conf (Negative) Urine Ketones (NEGATIVE) Urine Nitrite (NEGATIVE) Urine Bilirubin (NEGATIVE) Urine Urobilinogen (0-1) mg/dL Urine Leukocytes (NEGATIVE) Urine WBC (Auto) (0-5) /HPF Urine RBC (Auto) (0-2) /HPF U Epithel Cells (Auto) (FEW) /HPF Urine Bacteria (Auto) (NEGATIVE) /HPF Urine RBC (0-5) Sarabjit/ul Urine Mucus (Auto) (NEGATIVE) /HPF Ur Culture Indicated? Urine Glucose (NEGATIVE) mg/dL Urine Opiates Level (NEGATIVE) Ur Methadone (NEGATIVE) Urine Barbiturates (NEGATIVE) Ur Phencyclidine (PCP) (NEGATIVE) Urine Amphetamine (NEGATIVE) U Benzodiazepine Level (NEGATIVE) Urine Cocaine (NEGATIVE) Urine Marijuana (THC) (NEGATIVE) Ethyl Alcohol < 10 (0-10) mg/dL - Progress Progress: improved Progress Note: 10/01/21 17:27 No seizure activity or syncope observed in ER After discussion w pt, will restart low dose Keppra Counseled pt/family regarding: lab results, diagnosis, need for follow-up, rad results - Departure Departure Disposition: Home Clinical Impression: Near syncope Condition: Stable Critical Care Time: No Referrals: CAMPBELL COLEMAN [Primary Care Provider] - Follow up/PCP as directed Instructions: Near Fainting (DC) Additional Instructions: Follow up with your family MD or neurologist No driving until cleared by family MD or neurologist Return to ER as needed Prescriptions: Levetiracetam 250 MG [Keppra 250 MG] 250 mg PO BID #60 tablet
[2021-10-01 14:20] LABS: PTT 42.9 SECONDS (25.1-36.5)
[2021-10-01 14:22] LABS: Epithelial Cells RARE /HPF (FEW); Mucus SLIGHT /HPF (NEGATIVE)
[2021-10-01 14:23] LABS: Appearance CLEAR (CLEAR); Bilirubin NEGATIVE (NEGATIVE); Dipstick done @ ? MAIN LAB; Glucose NEGATIVE (NEGATIVE); Ketones NEGATIVE (NEGATIVE); Nitrite NEGATIVE (NEGATIVE); Ph 6.5 (5-6); Protein,Urine Dip NEGATIVE (Negative); RBC NEGATIVE Ery/ul (0-5); Urobilinogen 0.2 mg/dL (0-1)
[2021-10-01 14:24] LABS: ALBUMIN 3.9 g/dL (3.5-5.0); ALKALINE PHOSPHATASE 216 U/L (38-126); ANION GAP 11.9 MEQ/L (5-15); BLOOD UREA NITROGEN 7 mg/dL (7-17); CHLORIDE 106 mmol/L (98-107); Calcium 8.9 mg/dL (8.4-10.2); Carbon Dioxide 23 mmol/L (22-30); Creatinine 1 0.57 mg/dL (0.52-1.04); EST GLOMERULAR FILTRATION RATE > 60.0 ML/MIN; ETHYL ALCOHOL < 10 mg/dL (0-10); Glucose 82 mg/dL (74-106); SGOT/AST 185 U/L (14-36); SGPT/ALT 142 U/L (0-35); SODIUM 136 mmol/L (137-145); Total Protein 7.8 g/dL (6.3-8.2)
[2021-10-01 14:24] LABS: Urine Cultured Indicated? NO
[2021-10-01 14:35] LABS: Amphetamine,Urine NEGATIVE (NEGATIVE); Barbiturate,Urine NEGATIVE (NEGATIVE); Benzodiazepine,Urine NEGATIVE (NEGATIVE); Cocaine,Urine NEGATIVE (NEGATIVE); Methadone,Urine NEGATIVE (NEGATIVE); Opiate,Urine NEGATIVE (NEGATIVE); PCP,Urine NEGATIVE (NEGATIVE); THC,Urine NEGATIVE (NEGATIVE)
[2021-10-01 16:19] VITALS: BP 112/90; PULSE 101
[2021-10-01 16:36] VITALS: O2SAT 98
--- NOTE | 2021-10-01 21:11 | XRAY ---
Indication: Near syncope. History of seizures. Multiple contiguous axial images obtained through the head without contrast. Comparison: May 24, 2020. Normal appearing brain parenchyma, ventricles, and bony calvarium. Visualized paranasal sinuses and mastoid air cells are clear. Impression: Continued normal CT head without contrast exam. Comment: Preliminary interpretation made by [facility]. No critical discrepancy.
== END 2021-10-01 17:40 | disposition home or self-care (01) ==
LOC: ED 13:19
DX: R55 Syncope and collapse (principal); R00.2 Palpitations; I10 Essential (primary) hypertension; Z72.0 Tobacco use
CPT/HCPCS: 36415; 70450; 80053; 80307; 81015; 84484; 85025; 85610; 85730; 93005; 99284; G0480

== ENCOUNTER 2022-05-16 10:03 | Emergency (ER) | payer OTHER ==
[2022-05-16] MEDS ORDERED: Sodium Chloride 0.9% 1000 ML 1,000 ML IV STA (10:12)
--- NOTE | 2022-05-16 10:38 | XRAY ---
Indication: Cough. Comparison: None Portable chest demonstrates normal heart, lungs, and bony thorax.
[2022-05-16 11:08] LABS: Basophil (Absolute #) 0.04 x10^3/uL (0-0.4); Eosinophil % 2.7 % (0.00-5.0); Eosinophil (Absolute #) 0.14 x10^3/uL (0-0.5); Hematocrit 38.1 % (35-47); Hemoglobin 12.3 g/dL (12.0-16.0); Lymphocyte (Absolute #) 1.51 x10^3/uL (1.0-4.6); Lymphocytes % 29.6 % (24.0-44.0); Mean Cell Volume 89.2 fL (78-100); Mean Corpuscular Hemoglobin 28.8 pg (26-32); Mean Corpuscular Hgb Concent. 32.3 g/dL (32-36); Mean Platelet Volume 12.6 fL (7.5-11.0); Monocyte (Absolute #) 0.59 x10^3/uL (0.0-1.3); Monocytes % 11.6 % (0.0-12.0); Neutrophil % 54.9 % (36.0-66.0); Platelet Count 82 x10^3/uL (150-450); Red Blood Count 4.27 x10^6/uL (4.1-5.4); Red Cell Distribution Width 13.6 % (11.5-14.0); White Blood Count 5.1 x10^3/uL (4.0-10.5)
[2022-05-16 11:23] LABS: D-DIMER QUANTITATIVE 0.58 mg/L (0.0-0.50); INR 1.22 (0.8-3.0); PROTIME 12.7 SECONDS (9.4-12.5); PTT 37.2 SECONDS (25.1-36.5)
[2022-05-16 11:33] LABS: ALBUMIN 3.1 g/dL (3.5-5.0); ALKALINE PHOSPHATASE 276 U/L (38-126); ANION GAP 6.8 MEQ/L (5-15); BLOOD UREA NITROGEN 11 mg/dL (7-17); CHLORIDE 110 mmol/L (98-107); CK-Creatinine Phosphokinase 64 U/L (30-135); Calcium 7.9 mg/dL (8.4-10.2); Carbon Dioxide 25 mmol/L (22-30); EST GLOMERULAR FILTRATION RATE > 60.0 ML/MIN; Glucose 81 mg/dL (74-106); NT PRO BNP 92.8 pg/mL (0-450); SGOT/AST 196 U/L (14-36); SGPT/ALT 125 U/L (0-35); SODIUM 138 mmol/L (137-145); Total Protein 6.7 g/dL (6.3-8.2)
[2022-05-16 11:46] LABS: INFLUENZA B NEGATIVE (NEGATIVE); RESPIRATORY SYNCTIAL VIRUS NEGATIVE (Negative)
[2022-05-16 11:48] LABS: INFLUENZA A POSITIVE (NEGATIVE); SARS-CoV-2 Xpert Express POSITIVE (NEGATIVE)
[2022-05-16 11:52] LABS: Slide Review 1 YES
--- NOTE | 2022-05-16 12:01 | ERPHSYRPT ---
- History of Present Illness Time Seen by Provider: 05/16/22 10:15 Source: patient Exam Limitations: no limitations Patient Subjective Stated Complaint: Pt reports "I have been having chest pain all night. I am coughing up sputum with blood in it. I went to [facility] yeste rday and tested negative for covid/flu/rsv. One child tested positive earlier in the week with influenza a and strep, another child tested positive for covid. I came in because the chest pain is so bad." Triage Nursing Assessment: Pt ambulated to cot with steady upright gait, no apparent respiratory distress. Alert and oriented x3. Patient reports constant burning and throbbing pain across chest and blood tinged sputum. Crackles in bilateral lower bases of lungs auscultated by this nurse. Her children have tested positive for influenza a, strep and covid. Pt went to [facility] yesterday and tested negative for flu/covid/rsv, was not given any meds. Denies any fever. Physician History: Patient is a 41-year-old white female presents with a complaint of chest pain and coughing all night she has 1 child at home with flu a and strep and another child there with COVID. She has been bringing up some blood-streaked sputum. She has been taking ibuprofen and Tylenol without much relief. Timing/Duration: day(s) (2) Cough Quality/Degree: blood streaked sputum Possible Cause: illness exposure Modifying Factors: Improves With: coughing, deep breath Associated Symptoms: fever, chills, chest pain/soreness, cough, sinus infection, sore throat Allergies/Adverse Reactions: tramadol HCl [From [facility]] Allergy (Verified 05/16/22 10:04) seizures Hx Tetanus, Diphtheria Vaccination/Date Given: Yes Hx Influenza Vaccination/Date Given: No Hx Pneumococcal Vaccination/Date Given: No Immunizations Up to Date: No Travel Risk - International Travel Have you traveled outside of the country in past 3 weeks: No - Coronavirus Screening Are you exhibiting any of the following symptoms?: Yes Symptoms: Cough: New Onset, Shortness of Breath Close contact with a COVID-19 positive Pt in past 14-21 Days: Yes - Vaccine Status Have you recieved a Covid-19 vaccination: Yes Assembler Trim: Moderna - Vaccination Dates Date of 2cond Vaccination (if applicable): November 2020 - Review of Systems Constitutional: No Fever, No Chills Eyes: No Symptoms Ears, Nose, & Throat: No Symptoms Respiratory: Cough, Dyspnea Cardiac: Chest Pain, No Edema, No Syncope Abdominal/Gastrointestinal: No Abdominal Pain, No Nausea, No Vomiting, No Diarrhea Genitourinary Symptoms: No Dysuria Musculoskeletal: No Back Pain, No Neck Pain Skin: No Rash Neurological: No Dizziness, No Focal Weakness, No Sensory Changes Psychological: No Symptoms Endocrine: No Symptoms All Other Systems: Reviewed and Negative - Past Medical History Pertinent Past Medical History: Yes Neurological History: Seizures ENT History: No Pertinent History Cardiac History: Hypertension Respiratory History: No Pertinent History Endocrine Medical History: No Pertinent History Musculoskeletal History: Degenerative Disk Disease, Rheumatoid Arthritis GI Medical History: No Pertinent History History: No Pertinent History Psycho-Social History: Bipolar, Depression Female Reproductive Disorders: Fibroids Other Medical History: STATES SHE HAS RHEUMATOID ARTHRITIS BUT DOES NOT FOLLOW- UP WITH [employer] OR TAKE ANY MEDICATION. HX OF SEIZURE DISORDER BUT HAS NOT TAKEN MEDS IN APPROX 4-6 MONTHS, HAS NOT HAD A SEIZURE IN APPROX 3 YEARS. - Past Surgical History Past Surgical History: Yes Neuro Surgical History: No Pertinent History Cardiac: No Pertinent History Respiratory: No Pertinent History Gastrointestinal: Cholecystectomy Genitourinary: No Pertinent History Musculoskeletal: No Pertinent History Female Surgical History: Tubal Ligation - Social History Smoking Status: Current every day smoker How long have you smoked: 15 Exposure to second hand smoke: Yes Drug Use: none Patient Lives Alone: No Significant Family History: no pertinent family hx - Female History Hx Last Menstrual Period: 05/12/22 Hx Now: No - Nursing Vital Signs Nursing Vital Signs: Initial Vital Signs Temperature 97.9 F 05/16/22 10:05 Pulse Rate 105 H 05/16/22 10:05 Respiratory Rate 17 05/16/22 10:05 Blood Pressure 156/113 05/16/22 10:05 O2 Sat by Pulse Oximetry 97 05/16/22 10:05 Pain Scale Pain Intensity 8 - Physical Exam General Appearance: mild distress, alert Eye Exam: PERRL/EOMI, eyes nml inspection Ears, Nose, Throat Exam: normal ENT inspection, TMs normal, pharynx normal, moist mucous membranes Neck Exam: normal inspection, non-tender, supple, full range of motion Respiratory Exam: airway intact, crackles/rales, rhonchi, No respiratory distress Cardiovascular Exam: regular rate/rhythm, normal heart sounds Gastrointestinal/Abdomen Exam: soft, No tenderness Back Exam: normal inspection, No CVA tenderness, No vertebral tenderness Extremity Exam: normal inspection, normal range of motion Neurologic Exam: alert, oriented x 3, cooperative, normal mood/affect, sensation nml, No motor deficits Skin Exam: normal color, warm, dry, No rash Lymphatic Exam: No adenopathy SpO2 Interpretation: normal SpO2: 96 O2 Delivery: Room Air - Course Nursing assessment & vital signs reviewed: Yes - Radiology Exams Chest X-ray Interpretation: Reviewed by me, Negative Ordered Tests: Active Orders 24 hr Category Date Time Status EKG-ER Only STAT Care 05/16/22 10:12 Active IV Insertion STAT Care 05/16/22 10:12 Active CHEST 1 VIEW (PORTABLE) Stat Exams 05/16/22 10:13 Completed BLOOD CULTURE Stat Lab 05/16/22 10:15 Ordered CBC W DIFF Stat Lab 05/16/22 10:12 Completed CK-Creatinine Phosphokinase Stat Lab 05/16/22 11:00 Completed CMP Stat Lab 05/16/22 11:00 Completed D-DIMER QUANTITATIVE Stat Lab 05/16/22 11:00 Completed Lactic Acid Stat Lab 05/16/22 10:20 Completed NT PRO BNP Stat Lab 05/16/22 11:00 Completed PROTIME WITH INR Stat Lab 05/16/22 11:00 Completed PTT Stat Lab 05/16/22 11:00 Completed TROPONIN Q4H Lab 05/16/22 11:00 Completed TROPONIN Q4H Lab 05/16/22 14:15 Ordered TROPONIN Q4H Lab 05/16/22 18:15 Ordered UA W/RFX CULTURE Stat Lab 05/16/22 Ordered Medication Summary Discontinued Medications Generic Name Dose Route Start Last Admin Trade Name Freq PRN Reason Stop Dose Admin Sodium Chloride 1,000 mls @ 999 mls/hr 05/16/22 10:12 05/16/22 11:20 Sodium Chloride 0.9% 1000 Ml IV 05/16/22 11:12 Not Given .Q1H1M STA Lab/Rad Data: Laboratory Result Diagrams 05/16/22 10:12 05/16/22 11:00 Laboratory Results 05/16/22 05/16/22 05/16/22 Range/Units 11:00 11:00 11:00 WBC (4.0-10.5) x10^3/uL RBC (4.1-5.4) x10^6/uL Hgb (12.0-16.0) g/dL Hct (35-47) % MCV (78-100) fL MCH (26-32) pg MCHC (32-36) g/dL RDW (11.5-14.0) % Plt Count (150-450) x10^3/uL MPV (7.5-11.0) fL Gran % (36.0-66.0) % Immature Gran % (Auto) (0.00-0.4) % Nucleat RBC Rel Count (0.00-0.1) % Eos # (Auto) (0-0.5) x10^3/uL Immature Gran # (Auto) (0.00-0.03) x10^3u/L Absolute Lymphs (auto) (1.0-4.6) x10^3/uL Absolute Monos (auto) (0.0-1.3) x10^3/uL Absolute Nucleated RBC (0.00-0.01) x10^3u/L Lymphocytes % (24.0-44.0) % Monocytes % (0.0-12.0) % Eosinophils % (0.00-5.0) % Basophils % (0.0-0.4) % Absolute Granulocytes (1.4-6.9) x10^3/uL Basophils # (0-0.4) x10^3/uL PT (9.4-12.5) SECONDS INR (0.8-3.0) APTT (25.1-36.5) SECONDS D-Dimer (0.0-0.50) mg/L Sodium (137-145) mmol/L Potassium (3.5-5.1) mmol/L Chloride (98-107) mmol/L Carbon Dioxide (22-30) mmol/L Anion Gap (5-15) MEQ/L BUN (7-17) mg/dL Creatinine (0.52-1.04) mg/dL Estimated GFR ML/MIN Glucose (74-106) mg/dL Lactic Acid (0.4-2.0) Calcium (8.4-10.2) mg/dL Total Bilirubin (0.2-1.3) mg/dL AST (14-36) U/L ALT (0-35) U/L Alkaline Phosphatase (38-126) U/L Creatine Kinase (30-135) U/L Troponin I < 0.012 (0.000-0.034) ng/mL NT-Pro-B Natriuret Pep (0-450) pg/mL Serum Total Protein (6.3-8.2) g/dL Albumin (3.5-5.0) g/dL Influenza Type A Ag POSITIVE (NEGATIVE) Influenza Type B Ag NEGATIVE (NEGATIVE) RSV (PCR) NEGATIVE (Negative) SARS-CoV-2 (PCR) POSITIVE A (NEGATIVE) Group A Strep Antibody NOT DETECTED (NEGATIVE) Slides for Path Review 05/16/22 05/16/22 05/16/22 Range/Units 11:00 11:00 10:20 WBC (4.0-10.5) x10^3/uL RBC (4.1-5.4) x10^6/uL Hgb (12.0-16.0) g/dL Hct (35-47) % MCV (78-100) fL MCH (26-32) pg MCHC (32-36) g/dL RDW (11.5-14.0) % Plt Count (150-450) x10^3/uL MPV (7.5-11.0) fL Gran % (36.0-66.0) % Immature Gran % (Auto) (0.00-0.4) % Nucleat RBC Rel Count (0.00-0.1) % Eos # (Auto) (0-0.5) x10^3/uL Immature Gran # (Auto) (0.00-0.03) x10^3u/L Absolute Lymphs (auto) (1.0-4.6) x10^3/uL Absolute Monos (auto) (0.0-1.3) x10^3/uL Absolute Nucleated RBC (0.00-0.01) x10^3u/L Lymphocytes % (24.0-44.0) % Monocytes % (0.0-12.0) % Eosinophils % (0.00-5.0) % Basophils % (0.0-0.4) % Absolute Granulocytes (1.4-6.9) x10^3/uL Basophils # (0-0.4) x10^3/uL PT 12.7 H (9.4-12.5) SECONDS INR 1.22 (0.8-3.0) APTT 37.2 H (25.1-36.5) SECONDS D-Dimer 0.58 H (0.0-0.50) mg/L Sodium 138 (137-145) mmol/L Potassium 4.0 (3.5-5.1) mmol/L Chloride 110 H (98-107) mmol/L Carbon Dioxide 25 (22-30) mmol/L Anion Gap 6.8 (5-15) MEQ/L BUN 11 (7-17) mg/dL Creatinine 0.60 (0.52-1.04) mg/dL Estimated GFR > 60.0 ML/MIN Glucose 81 (74-106) mg/dL Lactic Acid 0.6 (0.4-2.0) Calcium 7.9 L (8.4-10.2) mg/dL Total Bilirubin 0.70 (0.2-1.3) mg/dL AST 196 H (14-36) U/L ALT 125 H (0-35) U/L Alkaline Phosphatase 276 H (38-126) U/L Creatine Kinase 64 (30-135) U/L Troponin I (0.000-0.034) ng/mL NT-Pro-B Natriuret Pep 92.8 (0-450) pg/mL Serum Total Protein 6.7 (6.3-8.2) g/dL Albumin 3.1 L (3.5-5.0) g/dL Influenza Type A Ag (NEGATIVE) Influenza Type B Ag (NEGATIVE) RSV (PCR) (Negative) SARS-CoV-2 (PCR) (NEGATIVE) Group A Strep Antibody (NEGATIVE) Slides for Path Review 05/16/22 Range/Units 10:12 WBC 5.1 (4.0-10.5) x10^3/uL RBC 4.27 (4.1-5.4) x10^6/uL Hgb 12.3 (12.0-16.0) g/dL Hct 38.1 (35-47) % MCV 89.2 (78-100) fL MCH 28.8 (26-32) pg MCHC 32.3 (32-36) g/dL RDW 13.6 (11.5-14.0) % Plt Count 82 L (150-450) x10^3/uL MPV 12.6 H (7.5-11.0) fL Gran % 54.9 (36.0-66.0) % Immature Gran % (Auto) 0.4 (0.00-0.4) % Nucleat RBC Rel Count 0.0 (0.00-0.1) % Eos # (Auto) 0.14 (0-0.5) x10^3/uL Immature Gran # (Auto) 0.02 (0.00-0.03) x10^3u/L Absolute Lymphs (auto) 1.51 (1.0-4.6) x10^3/uL Absolute Monos (auto) 0.59 (0.0-1.3) x10^3/uL Absolute Nucleated RBC 0.00 (0.00-0.01) x10^3u/L Lymphocytes % 29.6 (24.0-44.0) % Monocytes % 11.6 (0.0-12.0) % Eosinophils % 2.7 (0.00-5.0) % Basophils % 0.8 (0.0-0.4) % Absolute Granulocytes 2.80 (1.4-6.9) x10^3/uL Basophils # 0.04 (0-0.4) x10^3/uL PT (9.4-12.5) SECONDS INR (0.8-3.0) APTT (25.1-36.5) SECONDS D-Dimer (0.0-0.50) mg/L Sodium (137-145) mmol/L Potassium (3.5-5.1) mmol/L Chloride (98-107) mmol/L Carbon Dioxide (22-30) mmol/L Anion Gap (5-15) MEQ/L BUN (7-17) mg/dL Creatinine (0.52-1.04) mg/dL Estimated GFR ML/MIN Glucose (74-106) mg/dL Lactic Acid (0.4-2.0) Calcium (8.4-10.2) mg/dL Total Bilirubin (0.2-1.3) mg/dL AST (14-36) U/L ALT (0-35) U/L Alkaline Phosphatase (38-126) U/L Creatine Kinase (30-135) U/L Troponin I (0.000-0.034) ng/mL NT-Pro-B Natriuret Pep (0-450) pg/mL Serum Total Protein (6.3-8.2) g/dL Albumin (3.5-5.0) g/dL Influenza Type A Ag (NEGATIVE) Influenza Type B Ag (NEGATIVE) RSV (PCR) (Negative) SARS-CoV-2 (PCR) (NEGATIVE) Group A Strep Antibody (NEGATIVE) Slides for Path Review YES - Progress Progress: improved Air Movement: good Blood Culture(s) Obtained: No Antibiotics given: No - Departure Departure Disposition: Home Clinical Impression: COVID, Influenza A Condition: Stable Critical Care Time: No Referrals: CAMPBELL COLEMAN [Primary Care Provider] - Follow up/PCP as directed Instructions: Flu, Adult (DC), COVID-19 (DC) Prescriptions: Hydrocodone/Acetaminophen [Hydrocodone-Acetamin 5-325 mg] 1 tab PO Q6HPRN PRN 3 Days #12 tablet MDD 4 PRN Reason: Pain Nirmatrelvir/Ritonavir [Paxlovid 2X150 mg-100 mg (Eua)] 1 each PO BID 5 Days #1 packet Oseltamivir 75 mg [Tamiflu 75MG Capsule] 75 mg PO BID #10 cap
[2022-05-16 12:03] VITALS: BP 113/69; PULSE 82
[2022-05-16 12:11] VITALS: O2SAT 96
== END 2022-05-16 12:20 | disposition home or self-care (01) ==
LOC: ED 10:03
DX: U07.1 COVID-19 (principal); J10.1 Influenza due to other identified influenza virus with other respiratory manifestations; R05.9 Cough, unspecified; R07.9 Chest pain, unspecified; Z72.0 Tobacco use; Z79.891 Long term (current) use of opiate analgesic
CPT/HCPCS: 0241U; 36415; 71045; 80053; 82550; 83605; 83880; 84484; 85025; 85379; 85610; 85730; 87651; 93005; 99283; 87040

== ENCOUNTER 2022-09-18 16:39 | Emergency (ER) | payer OTHER ==
--- NOTE | 2022-09-18 17:49 | ERPHSYRPT ---
- History of Present Illness Historian: patient, other () Patient Subjective Stated Complaint: Pt c/o of RLQ for over a month and it has gotten worse in the past week Triage Nursing Assessment: Pt was brought to the ER by family, hypertensive, rates abdominal pain as 7/10, pain while pushing in as opposed to letting go on abdomen, pulses normal, no difficulty breathing, skin n/w/d, doesn't appear to be in any distress Physician History: 41 yo WF w RLQ pain x 1month. Pt saw her PCP today who sent her to the ER for a CT scan. Pain is sharp, 5/10, and nothing makes better or worse. She had had nausea wo vomiting/diarrhea/melena/hematochezia/dysuria/hematuria/ fever/cough/coryza. She has had a linette/BTL. Timing/Duration: other (1month) Activities at Onset: rest Quality: sharpness Abdominal Pain Onset Location: RLQ Pain Radiation: no radiation Severity of Pain-Max: severe Severity of Pain-Current: moderate Modifying Factors: Improves With: nothing Associated Symptoms: denies symptoms, nausea Previous symptoms: same symptoms as today Allergies/Adverse Reactions: tramadol HCl [From Ultra] Allergy (Verified 09/18/22 17:13) seizures Hx Tetanus, Diphtheria Vaccination/Date Given: Yes Hx Influenza Vaccination/Date Given: No Hx Pneumococcal Vaccination/Date Given: No Travel Risk - International Travel Have you traveled outside of the country in past 3 weeks: No - Coronavirus Screening Are you exhibiting any of the following symptoms?: No Close contact with a COVID-19 positive Pt in past 14-21 Days: No - Vaccine Status Have you recieved a Covid-19 vaccination: Yes 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 - Vaccination Dates Date of 2cond Vaccination (if applicable): none - Review of Systems Constitutional: No Symptoms Eyes: No Symptoms Ears, Nose, & Throat: No Symptoms Respiratory: No Symptoms Cardiac: No Symptoms Genitourinary Symptoms: No Symptoms Musculoskeletal: No Symptoms Skin: No Symptoms Neurological: No Symptoms Psychological: No Symptoms Endocrine: No Symptoms Hematologic/Lymphatic: No Symptoms Immunological/Allergic: No Symptoms - Past Medical History Pertinent Past Medical History: Yes Neurological History: Seizures ENT History: No Pertinent History Cardiac History: Hypertension Respiratory History: No Pertinent History Endocrine Medical History: No Pertinent History Musculoskeletal History: Degenerative Disk Disease, Rheumatoid Arthritis GI Medical History: No Pertinent History History: No Pertinent History Psycho-Social History: Bipolar, Depression Female Reproductive Disorders: Fibroids Other Medical History: STATES SHE HAS RHEUMATOID ARTHRITIS BUT 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 HX OF SEIZURE DISORDER BUT HAS NOT TAKEN MEDS IN APPROX 4-6 MONTHS, HAS NOT HAD A SEIZURE IN APPROX 3 YEARS. - Past Surgical History Past Surgical History: Yes Neuro Surgical History: No Pertinent History Cardiac: No Pertinent History Respiratory: No Pertinent History Gastrointestinal: Cholecystectomy Genitourinary: No Pertinent History Musculoskeletal: No Pertinent History Female Surgical History: Tubal Ligation - Social History Smoking Status: Current every day smoker How long have you smoked: 15 Exposure to second hand smoke: Yes Drug Use: none Patient Lives Alone: No Significant Family History: no pertinent family hx - Female History Hx Now: No (tubal) - Nursing Vital Signs Nursing Vital Signs: Initial Vital Signs Temperature 98.7 F 09/18/22 17:01 Pulse Rate 87 09/18/22 17:01 Blood Pressure 144/74 09/18/22 17:01 O2 Sat by Pulse Oximetry 99 09/18/22 17:01 Pain Scale Pain Intensity 7 Hypertensive - Physical Exam General Appearance: no apparent distress Eye Exam: PERRL/EOMI, eyes nml inspection Ears, Nose, Throat Exam: normal ENT inspection, TMs normal, pharynx normal, moist mucous membranes, tonsillar exudate Neck Exam: normal inspection, non-tender, supple, No meningismus, No mass, No Brudzinski, No Kernig's Respiratory Exam: normal breath sounds, lungs clear, airway intact, No respiratory distress Cardiovascular Exam: regular rate/rhythm, normal heart sounds, normal peripheral pulses, capillary refill <2 sec, No murmur Gastrointestinal/Abdomen Exam: soft, normal bowel sounds, tenderness (Moderate TTP RLQ wo guarding or rebound) Back Exam: normal inspection, normal range of motion, No CVA tenderness Extremity Exam: normal inspection, normal range of motion Neurologic Exam: alert, oriented x 3, cooperative, 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 as tested, normal mood/affect, nml cerebellar function, nml station & gait, sensation nml, No motor deficits, No sensory deficit Skin Exam: normal color, warm, dry Lymphatic Exam: No adenopathy SpO2 Interpretation: normal SpO2: 99 O2 Delivery: Room Air - Course Nursing assessment & vital signs reviewed: Yes - CT Exams Abdomen/Pelvis CT Interpretation: Discussed w/radiologist (CT ab-pelvis wo-normal appy/fecal stasis/splenomegaly) Ordered Tests: Active Orders 24 hr Category Date Time Status ABDOMEN AND PELVIS W/0 CONTRAS [CT] Stat Exams 09/18/22 17:57 Taken AMYLASE Stat Lab 09/18/22 16:14 Completed HCG QUALITATIVE, SERUM Stat Lab 09/18/22 16:14 Completed LIPASE Stat Lab 09/18/22 16:14 Completed UA W/RFX UR CULTURE Stat Lab 09/18/22 17:39 Ordered Lab/Rad Data: Laboratory Results 09/18/22 09/18/22 Range/Units 16:14 16:14 Amylase 58 (30-110) U/L Lipase 98 (23-300) U/L Serum HCG, Qual NEGATIVE (NEGATIVE) - Progress Progress Note: 09/18/22 20:24 Nursing note and vital signs reviewed No food or housing insecurities noted All labs reviewed and shared w pt/ Additional history per CT results reviewed and shared w pt Pt did not produce a urine for analysis during stay Counseled pt/family regarding: lab results, diagnosis, need for follow-up, rad results Medical Desision Making - Independent Historian Additional History obtained from: Spouse - Diagnostic Testing Diagnostic test were ordered, analyzed, and reviewed by me: Yes Radiological Interpretation: Discussed w/ radiologist - Risk of complications Low Risk: Low risk of morbidity from additional dx testing or treatment - Departure Departure Disposition: Home Clinical Impression: Abdominal pain Condition: Stable Critical Care Time: No Referrals: JOCE RAYMOND NP [Primary Care Provider] - Follow up/PCP as directed Instructions: Severe Abdominal Pain, Adult (DC) Additional Instructions: Follow up with your family MD Return to ER for increasing pain or temperature greater than 100.5 Bentyl as needed for pain Prescriptions: Dicyclomine HCl 20 mg [Bentyl 20 mg] 20 mg PO Q6H PRN PRN #10 tablet PRN Reason: Pain
[2022-09-18 17:55] LABS: HCG SERUM TEST NEGATIVE (NEGATIVE)
[2022-09-18 18:34] LABS: AMYLASE 58 U/L (30-110); LIPASE 98 U/L (23-300)
[2022-09-18 20:24] VITALS: BP 151/77; PULSE 84
[2022-09-18 20:29] VITALS: O2SAT 99
--- NOTE | 2022-09-19 08:52 | XRAY ---
Indication: Right lower quadrant pain 1 month. Nausea. Multiple contiguous axial images obtained through the abdomen and pelvis without contrast. Comparison: December 25, 2014 Lung bases again demonstrates minimal subsegmental atelectasis/scarring. No infiltrate or effusion. Heart not enlarged. Noncontrasted stomach and bowel loops appear nonobstructed again with normal appendix. There remains mild diffuse scattered colonic fecal debris throughout, 14.3 cm splenomegaly, and cholecystectomy. No free fluid/air. Remaining liver, pancreas, spleen, adrenal glands, kidneys, ureters, bladder, uterus, and aorta are unremarkable for noncontrast exam. Osseous structures intact. Again small fatty left periumbilical ventral hernia. Impression: 1. Again mild diffuse fecal stasis, splenomegaly, and small fatty left periumbilical hernia. 2. Remaining CT abdomen/pelvis without contrast exam continues is negative.
== END 2022-09-18 20:36 | disposition home or self-care (01) ==
LOC: ED 16:39
DX: R10.31 Right lower quadrant pain (principal); R11.0 Nausea; I10 Essential (primary) hypertension; Z72.0 Tobacco use
CPT/HCPCS: 36415; 74176; 82150; 83690; 84703; 99283

== ENCOUNTER 2023-11-03 17:16 | Observation (INO) | payer OTHER ==
[2023-11-03] MEDS ORDERED: Zofran 4 MG/2 ML VIAL ONE ×2 (17:29→19:53)
[2023-11-03] MEDS: Zofran 4 MG/2 ML VIAL IV ONE ×2 (17:31→19:55)
[2023-11-03] MEDS ORDERED: Sodium Chloride 0.9% 1000 ML 1,000 ML ONE (17:33)
[2023-11-03] MEDS: Sodium Chloride 0.9% 1000 ML 1,000 ML IV STA (17:33)
--- NOTE | 2023-11-03 17:33 | ERPHSYRPT ---
- History of Present Illness Time Seen by Provider: 11/03/23 17:24 Source: patient Exam Limitations: no limitations Physician History: For the past 6.5 hours pt has had nausea, 10 episodes of vomiting without blood and one episode of diarrhea; Denies chest pain, shortness of air, abdominal pain, fever, headache. Allergies/Adverse Reactions: tramadol HCl [From Ultra] Allergy (Verified 11/03/23 17:20) seizures Home Medications: No Reportable Medications [No Reported Medications] 11/03/23 [History] Hx Tetanus, Diphtheria Vaccination/Date Given: Yes Hx Influenza Vaccination/Date Given: No Hx Pneumococcal Vaccination/Date Given: No - Review of Systems Constitutional: No Fever Ears, Nose, & Throat: No Ear Pain, No Throat Pain Abdominal/Gastrointestinal: Nausea, Vomiting, Diarrhea, No Abdominal Pain Genitourinary Symptoms: No Dysuria Neurological: No Headache - Past Medical History Pertinent Past Medical History: Yes Neurological History: Seizures ENT History: No Pertinent History Cardiac History: Hypertension Respiratory History: No Pertinent History Endocrine Medical History: No Pertinent History Musculoskeletal History: Degenerative Disk Disease, Rheumatoid Arthritis GI Medical History: No Pertinent History History: No Pertinent History Psycho-Social History: Bipolar, Depression Female Reproductive Disorders: Fibroids Other Medical History: STATES SHE HAS RHEUMATOID ARTHRITIS BUT 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 HX OF SEIZURE DISORDER BUT HAS NOT TAKEN MEDS IN APPROX 4-6 MONTHS, HAS NOT HAD A SEIZURE IN APPROX 3 YEARS. - Past Surgical History Past Surgical History: Yes Neuro Surgical History: No Pertinent History Cardiac: No Pertinent History Respiratory: No Pertinent History Gastrointestinal: Cholecystectomy Genitourinary: No Pertinent History Musculoskeletal: No Pertinent History Female Surgical History: Tubal Ligation Significant Family History: no pertinent family hx - Social History Smoking Status: Current every day smoker How long have you smoked: 15 Exposure to second hand smoke: Yes Drug Use: none Patient Lives Alone: No - Nursing Vital Signs Nursing Vital Signs: Initial Vital Signs Temperature 98 F 11/03/23 17:21 Pulse Rate 64 11/03/23 17:21 Respiratory Rate 20 11/03/23 17:21 Blood Pressure 145/51 11/03/23 17:21 O2 Sat by Pulse Oximetry 97 11/03/23 17:21 Pain Scale Pain Intensity 0 - Physical Exam General Appearance: alert Eye Exam: PERRL/EOMI, other (ecchymosis of left eyelids) Ears, Nose, Throat Exam: TMs normal, pharynx normal Neck Exam: normal inspection Respiratory Exam: lungs clear Cardiovascular Exam: normal heart sounds Gastrointestinal/Abdomen Exam: normal bowel sounds, tenderness (mild mid upper abdominal tenderness) Back Exam: normal inspection Extremity Exam: No pedal edema Neurologic Exam: alert, cooperative Skin Exam: No cyanosis - CT Exams Abdomen/Pelvis CT Interpretation: Tele-radiologist Report (Findings of hepatosplenomegaly, mild abdominopelvic ascites, mild pleural effusion and deborah gastric varices are concerning for any liver parenchymal disease, LFT's and Viral Markers correlation are recommended. Contrast MRI/CECT abdomen/pelvis is recommended. ) Ordered Tests: Active Orders 24 hr Category Date Time Status IV Insertion STAT Care 11/03/23 17:33 Active ABDOMEN AND PELVIS W/0 CONTRAS [CT] Stat Exams 11/03/23 17:28 Completed AMYLASE Stat Lab 11/03/23 17:30 Completed CBC W DIFF Stat Lab 11/03/23 17:30 Completed CMP Stat Lab 11/03/23 17:30 Completed CULTURE,URINE Stat Lab 11/03/23 19:06 Received HCG QUALITATIVE, SERUM Stat Lab 11/03/23 17:30 Completed LIPASE Stat Lab 11/03/23 17:30 Completed MAGNESIUM Stat Lab 11/03/23 17:30 Completed Manual Differential NC Stat Lab 11/03/23 17:30 Completed UA W/RFX UR CULTURE Stat Lab 11/03/23 19:06 Completed Urine Triage Profile Stat Lab 11/03/23 19:06 Completed Transfer Order Routine Transfer 11/03/23 Ordered Medication Summary Generic Name Dose Route Start Last Admin Trade Name Freq PRN Reason Stop Dose Admin Ceftriaxone Sodium 1 gm in 100 mls @ 200 mls/hr 11/03/23 19:42 Rocephin 1 Gm / 100 Ml Nacl IV 11/03/23 20:11 STAT ONE Discontinued Medications Generic Name Dose Route Start Last Admin Trade Name Freq PRN Reason Stop Dose Admin Sodium Chloride 1,000 mls @ 999 mls/hr 11/03/23 17:28 11/03/23 18:27 Sodium Chloride 0.9% 1000 Ml IV 11/03/23 18:28 0 mls/hr .Q1H1M STA Infusion Sodium Chloride Confirm 11/03/23 17:33 Sodium Chloride 0.9% 1000 Ml Administered 11/03/23 17:34 Dose 1,000 mls @ ud .ROUTE .STK-MED ONE Ondansetron HCl Confirm 11/03/23 17:29 Ondansetron Hcl 4 Mg/2 Ml Vial Administered 11/03/23 17:30 Dose 4 mg .ROUTE .STK-MED ONE Ondansetron HCl 4 mg 11/03/23 17:28 11/03/23 17:31 Ondansetron Hcl 4 Mg/2 Ml Vial IV 11/03/23 17:29 4 mg STAT ONE Administration Lab/Rad Data: Laboratory Result Diagrams 11/03/23 17:30 11/03/23 17:30 Laboratory Results 11/03/23 11/03/23 11/03/23 Range/Units 19:06 19:06 17:30 WBC (4.0-10.5) x10^3/uL RBC (4.1-5.4) x10^6/uL Hgb (12.0-16.0) g/dL Hct (35-47) % MCV (78-100) fL MCH (26-32) pg MCHC (32-36) g/dL RDW (11.5-14.0) % Plt Count (150-450) x10^3/uL Sodium (135-145) mmol/L Potassium (3.5-5.1) mmol/L Chloride (98-107) mmol/L Carbon Dioxide (22-30) mmol/L Anion Gap (5-15) MEQ/L BUN (7-17) mg/dL Creatinine (0.52-1.04) mg/dL Estimated GFR ML/MIN Glucose (74-106) mg/dL Calcium (8.4-10.2) mg/dL Magnesium (1.6-2.3) mg/dL Total Bilirubin (0.2-1.3) mg/dL AST (14-36) U/L ALT (0-35) U/L Alkaline Phosphatase (38-126) U/L Serum Total Protein (6.3-8.2) g/dL Albumin (3.5-5.0) g/dL Amylase (30-110) U/L Lipase (23-300) U/L Serum HCG, Qual NEGATIVE (NEGATIVE) Urine Color Dark Yellow A (Yellow) Urine Appearance Cloudy A (Clear) Urine pH 5.5 (4.6-8.0) Ur Specific [place] 1.020 (1.005-1.030) Urine Protein 30 (Negative) Urine Glucose (UA) Negative (Negative) mg/dL Urine Ketones Negative (Negative) Urine Blood Moderate A (Negative) Urine Nitrite Negative (Negative) Urine Bilirubin Negative (Negative) Urine Urobilinogen 1.0 A (0.2) mg/dL Ur Leukocyte Esterase Negative (Negative) U Hyaline Cast (Auto) NONE SEEN (0-2) /LPF Urine Microscopic RBC 21-50 A (0-5) /HPF Urine Microscopic WBC 6-10 A (0-5) /HPF Ur Epithelial Cells Many A (None Seen) /HPF Urine Bacteria Moderate A (None Seen) /HPF Urine Culture Reflexed YES (NO) Urine Opiates Level POSITIVE A (NEGATIVE) Ur Methadone NEGATIVE (NEGATIVE) Urine Barbiturates NEGATIVE (NEGATIVE) Ur Phencyclidine (PCP) NEGATIVE (NEGATIVE) Urine Amphetamine NEGATIVE (NEGATIVE) U Benzodiazepine Level NEGATIVE (NEGATIVE) Urine Cocaine NEGATIVE (NEGATIVE) Urine Marijuana (THC) POSITIVE A (NEGATIVE) 11/03/23 11/03/23 Range/Units 17:30 17:30 WBC 9.6 (4.0-10.5) x10^3/uL RBC 4.72 (4.1-5.4) x10^6/uL Hgb 10.7 L (12.0-16.0) g/dL Hct 34.2 L (35-47) % MCV 72.5 L (78-100) fL MCH 22.7 L (26-32) pg MCHC 31.3 L (32-36) g/dL RDW 18.4 H (11.5-14.0) % Plt Count 59 L (150-450) x10^3/uL Sodium 140 (135-145) mmol/L Potassium 3.7 (3.5-5.1) mmol/L Chloride 108 H (98-107) mmol/L Carbon Dioxide 23 (22-30) mmol/L Anion Gap 12.8 (5-15) MEQ/L BUN 13 (7-17) mg/dL Creatinine 0.65 (0.52-1.04) mg/dL Estimated GFR 112.7 ML/MIN Glucose 124 H (74-106) mg/dL Calcium 8.9 (8.4-10.2) mg/dL Magnesium 1.7 (1.6-2.3) mg/dL Total Bilirubin 0.70 (0.2-1.3) mg/dL AST 33 (14-36) U/L ALT 15 (0-35) U/L Alkaline Phosphatase 149 H (38-126) U/L Serum Total Protein 7.7 (6.3-8.2) g/dL Albumin 4.1 (3.5-5.0) g/dL Amylase 61 (30-110) U/L Lipase 75 (23-300) U/L Serum HCG, Qual (NEGATIVE) Urine Color (Yellow) Urine Appearance (Clear) Urine pH (4.6-8.0) Ur Specific [place] (1.005-1.030) Urine Protein (Negative) Urine Glucose (UA) (Negative) mg/dL Urine Ketones (Negative) Urine Blood (Negative) Urine Nitrite (Negative) Urine Bilirubin (Negative) Urine Urobilinogen (0.2) mg/dL Ur Leukocyte Esterase (Negative) U Hyaline Cast (Auto) (0-2) /LPF Urine Microscopic RBC (0-5) /HPF Urine Microscopic WBC (0-5) /HPF Ur Epithelial Cells (None Seen) /HPF Urine Bacteria (None Seen) /HPF Urine Culture Reflexed (NO) Urine Opiates Level (NEGATIVE) Ur Methadone (NEGATIVE) Urine Barbiturates (NEGATIVE) Ur Phencyclidine (PCP) (NEGATIVE) Urine Amphetamine (NEGATIVE) U Benzodiazepine Level (NEGATIVE) Urine Cocaine (NEGATIVE) Urine Marijuana (THC) (NEGATIVE) - Progress Progress: unchanged Discussed with : Irma (Spoke with & discussed case with Dr. Rivers - obs) Will see patient in: hospital (observation) Counseled pt/family regarding: lab results, diagnosis, rad results Medical Desision Making - Diagnostic Testing Diagnostic test were ordered, analyzed, and reviewed by me: Yes Radiological Interpretation: Teleradiologist Report - Departure Departure Disposition: Observation Clinical Impression: Vomiting, Abdominal tenderness, Hepatosplenomegaly, abdominopelvic ascites, Pleural effusion Condition: Stable Critical Care Time: No Referrals: JOCE RAYMOND, [employer] DEVELOPER [Primary Care Provider] - Follow up/PCP as directed
[2023-11-03 17:50] LABS: Hematocrit 34.2 % (35-47); Hemoglobin 10.7 g/dL (12.0-16.0); Mean Cell Volume 72.5 fL (78-100); Mean Corpuscular Hemoglobin 22.7 pg (26-32); Mean Corpuscular Hgb Concent. 31.3 g/dL (32-36); Platelet Count 59 x10^3/uL (150-450); Red Blood Count 4.72 x10^6/uL (4.1-5.4); Red Cell Distribution Width 18.4 % (11.5-14.0); White Blood Count 9.6 x10^3/uL (4.0-10.5)
[2023-11-03 17:56] LABS: ALBUMIN 4.1 g/dL (3.5-5.0); ANION GAP 12.8 MEQ/L (5-15); BILIRUBIN,TOTAL 0.7 mg/dL (0.2-1.3); Calcium 8.9 mg/dL (8.4-10.2); Creatinine 1 0.65 mg/dL (0.52-1.04); EST GLOMERULAR FILTRATION RATE 112.7 ML/MIN; MAGNESIUM 1.7 mg/dL (1.6-2.3); Potassium 3.7 mmol/L (3.5-5.1); Total Protein 7.7 g/dL (6.3-8.2)
[2023-11-03 18:02] LABS: HCG SERUM TEST NEGATIVE (NEGATIVE)
--- NOTE | 2023-11-03 18:53 | XRAY ---
CLINICAL HISTORY: vomiting COMPARISON: None. TECHNIQUE: A CT of the abdomen and pelvis was performed with axial images as well as sagittal and coronal reconstruction images without intravenous contrast. One of the following dose reduction techniques was utilized for this exam: Automated exposure control, adjustment of the mA and/or kV according to patient size, and use of iterative reconstruction. FINDINGS: The liver is mildly enlarged measuring 17cm with slight irregularity of margins, and could be age-related. No definite caudate lobe hypertrophy was seen. No intrahepatic or extrahepatic bile duct dilation. Mild abdominopelvic ascites were seen. Mesenteric fat stranding noted. The gall bladder is surgically absent. Post cholecystectomy surgical clips noted. Unremarkable appearing pancreas. No pancreatic mass or ductal dilatation is seen. Spleen is enlarged measuring 13cm. The adrenal glands are normal. The kidneys appear unremarkable with no cysts masses or hydronephrosis. The ureters are normal with no stones. The stomach appears unremarkable. Small soft tissue rounded structures seen in the perigastric region and around the spleen, could be Varices, although contrast study is not provided. Unremarkable appearing duodenum. Small Bowel and colon are non-distended with no abnormality. No free intraperitoneal air is seen. The bladder is unremarkable with no stones. Few para-aortic lymph nodes were seen, a maximum of up to 1cm. Both ovaries are unremarkable. The uterus is anteverted, normal size. The visualized spine is unremarkable. The appendix appears unremarkable. A note is made of the left paramedian Umbilical Hernia with a defect measuring 2cm and the herniated sac containing fat measuring 5.7 x 3.5cm. No evidence of strangulation. Visualized lung bases show mild bilateral pleural effusion, more on the right side. IMPRESSION: 1. Findings of Hepatosplenomegaly, mild abdominopelvic ascites, mild pleural effusion, and deborah gastric varices are concerning for any liver parenchymal disease, LFTs and Viral Markers correlation are recommended. 2. The second differential would be renal parenchymal disease. Clinicopathological correlation is recommended. Contrast MRI/CECT Abdomen and pelvis is recommended. 3. ParaUmbilical Hernia. [facility] was called at [phone] at 05:43 PM [employer] STRIP INSPECTOR and Dr Donta Miller was informed regarding significant medical findings. Electronically Signed by: Julia Casillas MD. (11/03/2023 18:48:19 EDT)
[2023-11-03 19:23] LABS: Appearance Cloudy (Clear); Bacteria Moderate /HPF (None Seen); Bilirubin Negative (Negative); Blood Moderate (Negative); Epithelial Cells Many /HPF (None Seen); Glucose, Urine Negative (Negative); Hyaline Casts NONE SEEN /LPF (0-2); Ketones Negative (Negative); Leukocyte Esterase Negative (Negative); Nitrite Negative (Negative); Ph 5.5 (4.6-8.0); Protein,Urine Dip 30 (Negative); RBC 21-50 /HPF (0-5)
[2023-11-03 19:33] LABS: ADD URINE CULTURE? YES (NO); Amphetamine,Urine NEGATIVE (NEGATIVE); Barbiturate,Urine NEGATIVE (NEGATIVE); Benzodiazepine,Urine NEGATIVE (NEGATIVE); Cocaine,Urine NEGATIVE (NEGATIVE); Methadone,Urine NEGATIVE (NEGATIVE); Opiate,Urine POSITIVE (NEGATIVE); PCP,Urine NEGATIVE (NEGATIVE); THC,Urine POSITIVE (NEGATIVE)
[2023-11-03] MEDS: ROCEPHIN 1 GM / 100 ML NaCl 1 GM/100 ML IVPB IV ONE (19:54)
[2023-11-03] MEDS ORDERED: ROCEPHIN 1 GM / 100 ML NaCl 1 GM/100 ML IVPB IV ONE (19:54)
[2023-11-03 21:35] LABS: INR 1.15 (0.8-3.0); PROTIME 12.4 SECONDS (9.4-12.5)
[2023-11-03 21:37] LABS: Iron 51 ug/dL (37-170); Iron Saturation 12 % (20-39); TIBC 416 ug/dL (265-462)
[2023-11-03] MEDS: Sodium Chloride 0.9% 1000 ML 1,000 ML IV SCH (21:50)
[2023-11-03] MEDS ORDERED: zyPREXA 5MG TABLET ONE (22:00)
[2023-11-03] MEDS ORDERED: Phenergan 25 MG INJ ONE (22:02)
[2023-11-03] MEDS ORDERED: Sodium Chloride 0.9% 100 ML ONE (22:03)
[2023-11-03] MEDS: Phenergan 25 MG INJ*** 12.5 MG in Sodium Chloride 0.9% 100 ML IV PRN (22:08)
--- NOTE | 2023-11-03 22:32 | PCM.HP ---
History of Present Illness - Chief Complaint Chief Complaint: vomiting, abdominal pain Date: 11/03/23 History of Present Illness: 42 y/o F with no past medical history, who presents with one day of severe, constant non-bloody vomiting and RUQ abdominal pain, sharp, constant, without radiation, not relieved by the vomiting. Had one associated episode of diarrhea. Denies dysuria, fevers, sick contacts. No prior history of vomiting episodes. She denies any drug use despite THC and opiates on her UDS (no opioids were given in the ED.) Denies more than occasional alcohol use. Denies bleeding issues, bruising, or petechiae; no history of liver disease, and she is unaware of her history of thrombocytopenia. Denies family history of anemia, platelet disorder, or bleeding disorder. - Review of Systems Constitutional: No Fever Eyes: No Symptoms Ears, Nose, & Throat: No Symptoms Respiratory: No Symptoms Cardiac: No Symptoms Abdominal/Gastrointestinal: Abdominal Pain, Nausea, Vomiting, Diarrhea, No Hematemesis, No Hematochezia, No Melena Genitourinary Symptoms: No Dysuria, No Frequency Musculoskeletal: No Symptoms Skin: No Symptoms All Other Systems: Reviewed and Negative Medications & Allergies Home Medications: Home Medication List levETIRAcetam [Levetiracetam] 1,000 mg PO DAILY 11/03/23 [History Confirmed 11/03/23] Allergies/Adverse Reactions: Allergies Allergy/AdvReac Type Severity Reaction Status Date / Time tramadol HCl [From [facility]] Allergy seizures Verified 11/03/23 17:20 - Past Medical History Past Medical History: Yes Neurological History: No Pertinent History ENT History: No Pertinent History Cardiac History: No Pertinent History Respiratory History: No Pertinent History Endocrine Medical History: No Pertinent History GI Medical History: No Pertinent History History: No Pertinent History Pyscho-Social History: No Pertinent History Comment: STATES SHE HAS RHEUMATOID ARTHRITIS BUT DOES NOT FOLLOW-UP WITH [employer] OR TAKE ANY MEDICATION. HX OF SEIZURE DISORDER BUT HAS NOT TAKEN MEDS IN APPROX 4-6 MONTHS, HAS NOT HAD A SEIZURE IN APPROX 3 YEARS. - Female History Hx Last Menstrual Period: 3 weeks ago Are you now?: No - Past Surgical History Past Surgical History: Yes Neuro Surgical History: No Pertinent History Cardiac History: No Pertinent History Respiratory Surgery: No Pertinent History GI Surgical History: Cholecystectomy Genitourinary Surgical Hx: No Pertinent History Musculskeletal Surgical Hx: No Pertinent History Female Surgical History: Tubal Ligation Other Surgical History: Surgical history taken from previous ER visit due to patient not answering questions about her history during her triage. Significant Family History: no pertinent family hx - Social History Smoking Status: Current every day smoker How long have you smoked: 15 Exposure to second hand smoke: Yes Alcohol: None Drug Use: none - Social Determinants of Health Will the patient participate in the screening: Yes Do you worry about a steady place to live?: No Do you have any problems with any of the following?: No known problems In the past 12 months,have you had to go without utilities?: No Have you or anyone in your house had to go without enough: No Transportation Issues: No Has anyone in your support network made you feel unsafe?: No Does the patient want assistance with any of the above?: No - Physical Exam Vital Signs: Vital Signs - 24 hr Temp Pulse Resp BP Pulse Ox 11/03/23 20:51 96.7 F 43 L 17 133/68 93 L 11/03/23 17:21 98 F 64 20 145/51 97 GEN: frequent dry heaving, agitated, writhing in bed at times. NEURO: no focal deficits HENT: EOMI, normal vision CV: Regular rate & rhythm, no murmurs, no edema PULM: clear to auscultation bilaterally, no work of breathing ABD: TTP over RUQ, no guarding or rebound PSYCH: Alert, oriented, but mildly anxious/agitated Results - Labs Lab/Micro Results: Lab Results-Last 24 Hours 11/03/23 11/03/23 11/03/23 Range/Units 17:30 17:30 17:30 WBC 9.6 (4.0-10.5) x10^3/uL RBC 4.72 (4.1-5.4) x10^6/uL Hgb 10.7 L (12.0-16.0) g/dL Hct 34.2 L (35-47) % MCV 72.5 L (78-100) fL MCH 22.7 L (26-32) pg MCHC 31.3 L (32-36) g/dL RDW 18.4 H (11.5-14.0) % Plt Count 59 L (150-450) x10^3/uL PT (9.4-12.5) SECONDS INR (0.8-3.0) Sodium 140 (135-145) mmol/L Potassium 3.7 (3.5-5.1) mmol/L Chloride 108 H (98-107) mmol/L Carbon Dioxide 23 (22-30) mmol/L Anion Gap 12.8 (5-15) MEQ/L BUN 13 (7-17) mg/dL Creatinine 0.65 (0.52-1.04) mg/dL Estimated GFR 112.7 ML/MIN Glucose 124 H (74-106) mg/dL Calcium 8.9 (8.4-10.2) mg/dL Magnesium 1.7 (1.6-2.3) mg/dL Iron (37-170) ug/dL TIBC (265-462) ug/dL Iron Saturation (20-39) % Total Bilirubin 0.70 (0.2-1.3) mg/dL AST 33 (14-36) U/L ALT 15 (0-35) U/L Alkaline Phosphatase 149 H (38-126) U/L Serum Total Protein 7.7 (6.3-8.2) g/dL Albumin 4.1 (3.5-5.0) g/dL Amylase 61 (30-110) U/L Lipase 75 (23-300) U/L Serum HCG, Qual NEGATIVE (NEGATIVE) Urine Color (Yellow) Urine Appearance (Clear) Urine pH (4.6-8.0) Ur Specific [place] (1.005-1.030) Urine Protein (Negative) Urine Glucose (UA) (Negative) mg/dL Urine Ketones (Negative) Urine Blood (Negative) Urine Nitrite (Negative) Urine Bilirubin (Negative) Urine Urobilinogen (0.2) mg/dL Ur Leukocyte Esterase (Negative) U Hyaline Cast (Auto) (0-2) /LPF Urine Microscopic RBC (0-5) /HPF Urine Microscopic WBC (0-5) /HPF Ur Epithelial Cells (None Seen) /HPF Urine Bacteria (None Seen) /HPF Urine Culture Reflexed (NO) Urine Opiates Level (NEGATIVE) Ur Methadone (NEGATIVE) Urine Barbiturates (NEGATIVE) Ur Phencyclidine (PCP) (NEGATIVE) Urine Amphetamine (NEGATIVE) U Benzodiazepine Level (NEGATIVE) Urine Cocaine (NEGATIVE) Urine Marijuana (THC) (NEGATIVE) 11/03/23 11/03/23 11/03/23 Range/Units 19:06 19:06 19:30 WBC (4.0-10.5) x10^3/uL RBC (4.1-5.4) x10^6/uL Hgb (12.0-16.0) g/dL Hct (35-47) % MCV (78-100) fL MCH (26-32) pg MCHC (32-36) g/dL RDW (11.5-14.0) % Plt Count (150-450) x10^3/uL PT 12.4 (9.4-12.5) SECONDS INR 1.15 (0.8-3.0) Sodium (135-145) mmol/L Potassium (3.5-5.1) mmol/L Chloride (98-107) mmol/L Carbon Dioxide (22-30) mmol/L Anion Gap (5-15) MEQ/L BUN (7-17) mg/dL Creatinine (0.52-1.04) mg/dL Estimated GFR ML/MIN Glucose (74-106) mg/dL Calcium (8.4-10.2) mg/dL Magnesium (1.6-2.3) mg/dL Iron (37-170) ug/dL TIBC (265-462) ug/dL Iron Saturation (20-39) % Total Bilirubin (0.2-1.3) mg/dL AST (14-36) U/L ALT (0-35) U/L Alkaline Phosphatase (38-126) U/L Serum Total Protein (6.3-8.2) g/dL Albumin (3.5-5.0) g/dL Amylase (30-110) U/L Lipase (23-300) U/L Serum HCG, Qual (NEGATIVE) Urine Color Dark Yellow A (Yellow) Urine Appearance Cloudy A (Clear) Urine pH 5.5 (4.6-8.0) Ur Specific [place] 1.020 (1.005-1.030) Urine Protein 30 (Negative) Urine Glucose (UA) Negative (Negative) mg/dL Urine Ketones Negative (Negative) Urine Blood Moderate A (Negative) Urine Nitrite Negative (Negative) Urine Bilirubin Negative (Negative) Urine Urobilinogen 1.0 A (0.2) mg/dL Ur Leukocyte Esterase Negative (Negative) U Hyaline Cast (Auto) NONE SEEN (0-2) /LPF Urine Microscopic RBC 21-50 A (0-5) /HPF Urine Microscopic WBC 6-10 A (0-5) /HPF Ur Epithelial Cells Many A (None Seen) /HPF Urine Bacteria Moderate A (None Seen) /HPF Urine Culture Reflexed YES (NO) Urine Opiates Level POSITIVE A (NEGATIVE) Ur Methadone NEGATIVE (NEGATIVE) Urine Barbiturates NEGATIVE (NEGATIVE) Ur Phencyclidine (PCP) NEGATIVE (NEGATIVE) Urine Amphetamine NEGATIVE (NEGATIVE) U Benzodiazepine Level NEGATIVE (NEGATIVE) Urine Cocaine NEGATIVE (NEGATIVE) Urine Marijuana (THC) POSITIVE A (NEGATIVE) 11/03/23 Range/Units 19:30 WBC (4.0-10.5) x10^3/uL RBC (4.1-5.4) x10^6/uL Hgb (12.0-16.0) g/dL Hct (35-47) % MCV (78-100) fL MCH (26-32) pg MCHC (32-36) g/dL RDW (11.5-14.0) % Plt Count (150-450) x10^3/uL PT (9.4-12.5) SECONDS INR (0.8-3.0) Sodium (135-145) mmol/L Potassium (3.5-5.1) mmol/L Chloride (98-107) mmol/L Carbon Dioxide (22-30) mmol/L Anion Gap (5-15) MEQ/L BUN (7-17) mg/dL Creatinine (0.52-1.04) mg/dL Estimated GFR ML/MIN Glucose (74-106) mg/dL Calcium (8.4-10.2) mg/dL Magnesium (1.6-2.3) mg/dL Iron 51 (37-170) ug/dL TIBC 416 (265-462) ug/dL Iron Saturation 12 L (20-39) % Total Bilirubin (0.2-1.3) mg/dL AST (14-36) U/L ALT (0-35) U/L Alkaline Phosphatase (38-126) U/L Serum Total Protein (6.3-8.2) g/dL Albumin (3.5-5.0) g/dL Amylase (30-110) U/L Lipase (23-300) U/L Serum HCG, Qual (NEGATIVE) Urine Color (Yellow) Urine Appearance (Clear) Urine pH (4.6-8.0) Ur Specific [place] (1.005-1.030) Urine Protein (Negative) Urine Glucose (UA) (Negative) mg/dL Urine Ketones (Negative) Urine Blood (Negative) Urine Nitrite (Negative) Urine Bilirubin (Negative) Urine Urobilinogen (0.2) mg/dL Ur Leukocyte Esterase (Negative) U Hyaline Cast (Auto) (0-2) /LPF Urine Microscopic RBC (0-5) /HPF Urine Microscopic WBC (0-5) /HPF Ur Epithelial Cells (None Seen) /HPF Urine Bacteria (None Seen) /HPF Urine Culture Reflexed (NO) Urine Opiates Level (NEGATIVE) Ur Methadone (NEGATIVE) Urine Barbiturates (NEGATIVE) Ur Phencyclidine (PCP) (NEGATIVE) Urine Amphetamine (NEGATIVE) U Benzodiazepine Level (NEGATIVE) Urine Cocaine (NEGATIVE) Urine Marijuana (THC) (NEGATIVE) - Radiology Impressions Radiology Exams & Impressions: Radiology Procedures Category Date Time Status ABDOMEN AND PELVIS W/0 CONTRAS [CT] Stat Exams 11/03/23 17:28 Completed MRI ABDOMEN WITH CONTRAST [MRI] Stat Exams 11/03/23 20:51 Ordered MRI PELVIS WITH CONTRAST [MRI] Stat Exams 11/03/23 20:[address] Abd/Pelvis - hepatosplenomegaly, with ascites, perigastric varices - Other Procedures and Tests Respiratory Therapy 11/03/23 21:36 Smoking Cessation Education ONCE Assessment/Plan (1) Vomiting Current Visit: Yes Status: Acute Assessment & Plan: 42 y/o F with reportedly no past medical history who presents with one day of severe nausea, but with imaging and lab findings concerning for chronic liver disease. ## Nausea, abdominal pain - intractable. Possibly withdrawal syndrome; patient denies drug use, but UDS positive for THC and opiates. However, no diarrhea, and pain is localized. No acute findings on CT to cause abdominal pain. - PRN Zofran alternating with PRN phenergan - give single dose of Zyprexa to help with additional nausea - getting MRI abd as below ## hepatosplenomegaly - concerning that patient has concomitant thrombocytopenia, although this has been chronic going back two years. Now has a microcytic anemia as well (see below). But chronicitiy of thrombocytopenia suggests may be more explained by the splenomegaly. Along with the possible early liver disease causing portal hypertension (evidenced by the ascites and gastric varices). - check hepatitis panel - check HIV - trend LFTs - check INR for evaluation of liver synthetic function - check MRI abd/pelvis per radiology recommendation for evaluation of HSM ## microcytic anemia - new per patient's prior labs. Denies h/o bleeding. Concerning for iron-deficiency vs thalassemia, although no family history. - check iron studies, as well as folate/B12 levels - repeat CBC ## possible acute cystitis - no dysuria, but had RBC, WBCs, and bacteria on UA. Unclear if clinical infection. Started on Rocephin in ED. - follow up urine culture - continue Rocephin 1 g IV q24h from ED for now - if no symptoms of dysuria, can d/c antibiotics Code status: Full code Prophylaxis: SCDs due to relative thrombocytopenia Diet: NPO, pending improvement in nausea, and for MRI Code(s): R11.10 - VOMITING, UNSPECIFIED Telemedicine Encounter - Telemedicine Encounter Telemedicine Encounter: The entirety of this encounter was performed via Telemedicine"
[2023-11-03 22:35] LABS: Ferritin 9.44 ng/mL (6.24-137); Folate (Folic Acid) 8.62 ng/mL (2.76 - >20)
[2023-11-03] MEDS: Zyprexa Zydis 5 MG PO ONE (23:18)
[2023-11-04 01:05] LABS: BAND 4 % (0.0-2.0); Basophil 2 % (0.0-1.0); Lymphocytes 14 % (24-44); Monocyte 2 % (0.0-12.0); Neutrophils 78 % (36.0-66.0); Platelet Estimate DECREASED (NORMAL); Total Cells Counted 100
[2023-11-04 01:06] LABS: ANISOCYTOSIS 1+
[2023-11-04 05:03] LABS: Hematocrit 32.9 % (35-47); Hemoglobin 10.1 g/dL (12.0-16.0); Mean Cell Volume 73.8 fL (78-100); Mean Corpuscular Hemoglobin 22.6 pg (26-32); Mean Corpuscular Hgb Concent. 30.7 g/dL (32-36); Platelet Count 58 x10^3/uL (150-450); Red Blood Count 4.46 x10^6/uL (4.1-5.4); White Blood Count 10.2 x10^3/uL (4.0-10.5)
[2023-11-04 05:20] LABS: ALBUMIN 3.5 g/dL (3.5-5.0); ANION GAP 10.1 MEQ/L (5-15); BILIRUBIN,TOTAL 0.6 mg/dL (0.2-1.3); Calcium 8.5 mg/dL (8.4-10.2); Creatinine 1 0.58 mg/dL (0.52-1.04); EST GLOMERULAR FILTRATION RATE 115.8 ML/MIN; Potassium 3.9 mmol/L (3.5-5.1); Total Protein 6.9 g/dL (6.3-8.2)
[2023-11-04 07:23] LABS: Basophil 2 % (0.0-1.0); Lymphocytes 16 % (24-44); Neutrophils 82 % (36.0-66.0); Total Cells Counted 100
[2023-11-04 07:25] LABS: ANISOCYTOSIS 1+; Platelet Estimate DECREASED (NORMAL)
[2023-11-04] MEDS: VENTOLIN COMMON CANISTER IH PRN ×2 (08:05→22:52)
[2023-11-04] MEDS: KEPPRA PO SCH (09:08)
[2023-11-04] MEDS: TYLENOL 325 MG PO PRN (09:08)
[2023-11-04 10:23] LABS: Vitamin B12 > 961 pg/mL (239-931)
[2023-11-04] MEDS: Hydromorphone 1 mg/ml Injection IV PRN (10:26)
[2023-11-04] MEDS: FEOSOL 325 MG PO SCH (10:26)
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
--- NOTE | 2023-11-04 13:47 | XRAY ---
Indication: Vomiting. Ascites. Axial and coronal MRI abdomen performed using pre and post T1 and T2 weighted sequences. 15 cc Dotarem contrast used. Comparison: None Study is degraded by respiration/motion artifact. Cirrhotic appearing liver with incompletely visualized tiny abdominal ascites. Spleen is enlarged measuring 15.7 cm. Previous cholecystectomy. Remaining visualized pancreas, adrenal glands, kidneys, stomach, bowel loops, aorta, and IVC are unremarkable. No abnormal bone marrow signal. Visualized lung bases demonstrates recent CT proven pulmonary edema and small bibasilar effusions. Impression: 1. Respiration/motion artifact. 2. Cirrhotic liver, splenomegaly, and tiny ascites. 3. Pulmonary edema with bibasilar effusions. 4. Negative contrast exam.
--- NOTE | 2023-11-04 14:14 | XRAY ---
Indication: Short of breath. Tachycardia and oxygen need. Pulmonary embolus. Multiple contiguous axial images obtained through the chest using 80 cc Isovue 370 contrast and PE protocol. Comparison: None Good opacification of the pulmonary arteries to include the lobar and segmental branches. No pulmonary embolus. Heart is borderline enlarged. Aorta is normal in course and caliber. No pathologic mediastinal/hilar lymphadenopathy. Lungs demonstrate mild diffuse pulmonary edema with small right and tiny left effusions. Also scattered bilateral mid to lower lung subsegmental atelectasis, right greater than left. Bony thorax intact. Limited upper abdomen demonstrates cirrhotic liver, 15.7 cm splenomegaly, and tiny ascites. Impression: 1. Negative pulmonary embolus. 2. Borderline cardiomegaly with pulmonary edema, bilateral effusions, and bilateral subsegmental atelectasis. Rule out cardiac decompensation/CHF versus fluid overload. Superimposed pneumonia not completely excluded. 3. Incidental cirrhotic liver, splenomegaly, and tiny ascites.
[2023-11-04] MEDS: Lasix 40 MG/4 ML IV ONE (14:50)
[2023-11-04] MEDS: Nicoderm CQ 21 MG TOP SCH (14:50)
[2023-11-04] MEDS: Zofran 4 MG/2 ML VIAL IV PRN (19:28)
[2023-11-04] MEDS: ROCEPHIN 1 GM / 100 ML NaCl 1 GM/100 ML IVPB IV SCH (21:46)
[2023-11-05 05:06] LABS: ALBUMIN 3.5 g/dL (3.5-5.0); ANION GAP 7.2 MEQ/L (5-15); BILIRUBIN,TOTAL 0.5 mg/dL (0.2-1.3); Calcium 8.2 mg/dL (8.4-10.2); Creatinine 1 0.63 mg/dL (0.52-1.04); EST GLOMERULAR FILTRATION RATE 113.5 ML/MIN; Potassium 3.1 mmol/L (3.5-5.1); Total Protein 6.8 g/dL (6.3-8.2)
[2023-11-05 05:29] LABS: Hematocrit 29.2 % (35-47); Hemoglobin 9.1 g/dL (12.0-16.0); Mean Cell Volume 72.6 fL (78-100); Mean Corpuscular Hemoglobin 22.6 pg (26-32); Mean Corpuscular Hgb Concent. 31.2 g/dL (32-36); Mean Platelet Volume 10.8 fL (7.5-11.0); Platelet Count 52 x10^3/uL (150-450); Red Blood Count 4.02 x10^6/uL (4.1-5.4); Red Cell Distribution Width 18.7 % (11.5-14.0); White Blood Count 8.9 x10^3/uL (4.0-10.5)
[2023-11-05 05:35] LABS: Slide Review YES
[2023-11-05] MEDS: Klor Con PO SCH (07:38)
[2023-11-05 08:23] LABS: HIV Screen 4th Generation wRfx Non Reactive (Non Reactive)
[2023-11-05] MEDS: Zithromax 500 MG/ 250 ML NaCl Premix 500 MG/250 ML IVPB IV SCH (09:46)
[2023-11-05] MEDS: Lasix 20 MG/2 ML IV SCH ×2 (09:47→21:14)
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
[2023-11-05] MEDS: NORCO 5/325 MG PO PRN (17:52)
[2023-11-05] MEDS ORDERED: Narcan 0.4 MG/ML IV PRN (18:06)
[2023-11-06 05:24] LABS: Hematocrit 32.9 % (35-47); Hemoglobin 10.1 g/dL (12.0-16.0); Mean Cell Volume 72.5 fL (78-100); Mean Corpuscular Hemoglobin 22.2 pg (26-32); Mean Corpuscular Hgb Concent. 30.7 g/dL (32-36); Mean Platelet Volume 10.2 fL (7.5-11.0); Platelet Count 54 x10^3/uL (150-450); Red Blood Count 4.54 x10^6/uL (4.1-5.4); Red Cell Distribution Width 18.7 % (11.5-14.0); White Blood Count 9.2 x10^3/uL (4.0-10.5)
[2023-11-06 06:03] LABS: ALBUMIN 3.7 g/dL (3.5-5.0); BILIRUBIN,TOTAL 0.6 mg/dL (0.2-1.3); Calcium 8.9 mg/dL (8.4-10.2); Creatinine 1 0.59 mg/dL (0.52-1.04); EST GLOMERULAR FILTRATION RATE 115.3 ML/MIN; MAGNESIUM 1.7 mg/dL (1.6-2.3); Potassium 4.2 mmol/L (3.5-5.1); Total Protein 7.4 g/dL (6.3-8.2)
[2023-11-06 07:30] LABS: Slide Review YES
[2023-11-06 07:33] VITALS: RESP 16
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
[2023-11-06 12:06] VITALS: BP 141/86; PULSE 82; TEMP 97.8; O2SAT 93
[2023-11-07 17:08] LABS: HBsAg Screen Negative (Negative); HCV Ab Reactive (Non Reactive); Hep A Ab, IgM Negative (Negative); Hep B Core Ab, IgM Negative (Negative)
--- NOTE | 2023-11-11 15:18 | ECHO ---
DATE OF PROCEDURE: 11/04/2023 CLINICAL INFORMATION: Shortness of breath requiring oxygen with an abnormal chest CT. The M-mode 2D, and Doppler echocardiogram including color flow Doppler shows the left ventricle is normal in size. There is borderline thickening of the left ventricular posterior wall. There is normal contractility of the left ventricle. The ejection fraction is calculated to be 76%. The right ventricle is grossly normal. The left atrium is mildly dilated. The interatrial septum is intact. The right atrium appears to be dilated. The aortic valve opens well. There is mitral valve leaflet thickening. There is mild mitral regurgitation. There is moderate tricuspid regurgitation. The right ventricular systolic pressure is calculated to be 50 mm of Mercury. The pulmonic valve is not well visualized. There is mild pulmonic regurgitation. The aortic root is normal. There is no pericardial effusion present. IMPRESSION: 1) NORMAL CONTRACTILITY OF THE LEFT VENTRICLE. 2) BORDERLINE HYPERTROPHY IN THE LEFT VENTRICULAR POSTERIOR WALL. 3) MILD LEFT ATRIAL DILATATION. 4) RIGHT ATRIAL DILATATION. 5) MILD MITRAL REGURGITATION. 6) MODERATE TRICUSPID REGURGITATION. 7) MODERATE TO SEVERE PULMONARY HYPERTENSION. 8) MILD PULMONIC REGURGITATION.
== END 2023-11-06 13:20 | disposition home or self-care (01) ==
LOC: ED 17:16 → MED SURG 20:45
PROVIDERS: ADMIT Internal Medicine; ATTEND Internal Medicine
DX: R10.819 Abdominal tenderness, unspecified site (principal); R09.02 Hypoxemia; Z99.81 Dependence on supplemental oxygen; D50.9 Iron deficiency anemia, unspecified; N39.0 Urinary tract infection, site not specified; Z86.69 Personal history of other diseases of the nervous system and sense organs; D69.6 Thrombocytopenia, unspecified; F12.20 Cannabis dependence, uncomplicated; R16.2 Hepatomegaly with splenomegaly, not elsewhere classified; R11.10 Vomiting, unspecified; Z87.820 Personal history of traumatic brain injury; F17.200 Nicotine dependence, unspecified, uncomplicated; E66.9 Obesity, unspecified
CPT/HCPCS: 36000; 36415; 71260; 74176; 74182; 80053; 80074; 80307; 81001; 82077; 82150; 82607; 82728; 82746; 83540; 83550; 83690; 83735; 84132; 84703; 85025; 85027; 85610; 87086; 87389; 93268; 93306; 94640; 94762; 96365; 96374; 96376; 99285; G0378; Q3014; J0456; J0696; J1170; J1940; J2405; J2550; A9270-GY

== ENCOUNTER 2023-11-24 21:24 | Emergency (ER) | payer OTHER ==
--- NOTE | 2023-11-24 21:32 | ERPHSYRPT ---
- History of Present Illness Time Seen by Provider: 11/24/23 21:32 Historian: patient, EMS, old records Exam Limitations: clinical condition Physician History: This is an obese 42-year-old white female patient who was brought into the emergency department by private vehicle by her /significant other. She is a patient of Kieran Duron nurse practitioner. Patient presents emergency department approximately 15 to 30 minutes after onset of vomiting and abdominal pain that occurred prior to arrival. Patient was seen in emergency department and admitted on 11/03/2023 for the same symptoms and I reviewed the patient's inpatient hospital stay summary as well as laboratory and radiographic study results. Her abdominal MRI on 11/04/2023 showed cirrhosis of the liver, splenomegaly, tiny ascites and pulmonary edema with bibasilar pleural effusions. Patient has a history of bipolar disorder. She has history of rheumatoid arthritis, she has a history of degenerative disc disease. Patient denies chest pain. Patient denies shortness of breath. Patient reports that she is set up to see specialist but has not yet seen them Timing/Duration: today Quality: cramping, sharpness Abdominal Pain Onset Location: generalized abdomen Severity of Pain-Max: moderate Severity of Pain-Current: moderate Modifying Factors: Improves With: vomiting Associated Symptoms: nausea, vomiting, weakness, No chest pain, No shortness of breath Previous symptoms: same symptoms as today, recently seen, recent hospitalization, recently treated Allergies/Adverse Reactions: tramadol HCl [From [facility]] Allergy (Verified 11/24/23 21:34) seizures Home Medications: levETIRAcetam [Levetiracetam] 1,000 mg PO DAILY 11/03/23 [History] Albuterol Common Canister [Ventolin Common Canister] 1 - 2 puff IH Q4H PRN 11/04/23 [History] Hx Tetanus, Diphtheria Vaccination/Date Given: Yes Hx Influenza Vaccination/Date Given: No Hx Pneumococcal Vaccination/Date Given: No Travel Risk - International Travel Have you traveled outside of the country in past 3 weeks: No - Emerging Infectious Disease Are you exhibiting symptoms associated with any current EIDs: Yes Symptoms: Abdominal Pain, Vomitting - Review of Systems Constitutional: Weakness Eyes: No Symptoms Ears, Nose, & Throat: No Symptoms Respiratory: No Symptoms Cardiac: No Symptoms Abdominal/Gastrointestinal: Abdominal Pain, Nausea, Vomiting, Appetite Changes Genitourinary Symptoms: No Symptoms Musculoskeletal: No Symptoms Skin: No Symptoms Neurological: No Symptoms Psychological: No Symptoms Endocrine: No Symptoms Hematologic/Lymphatic: No Symptoms Immunological/Allergic: No Symptoms All Other Systems: Reviewed and Negative - Past Medical History Pertinent Past Medical History: Yes Neurological History: No Pertinent History ENT History: No Pertinent History Cardiac History: No Pertinent History Respiratory History: No Pertinent History Endocrine Medical History: No Pertinent History Musculoskeletal History: Degenerative Disk Disease, Rheumatoid Arthritis GI Medical History: No Pertinent History History: No Pertinent History Psycho-Social History: No Pertinent History Female Reproductive Disorders: Fibroids Other Medical History: STATES SHE HAS RHEUMATOID ARTHRITIS BUT DOES NOT FOLLOW- UP WITH [facility] OR TAKE ANY MEDICATION. HX OF SEIZURE DISORDER BUT HAS NOT TAKEN MEDS IN APPROX 4-6 MONTHS, HAS NOT HAD A SEIZURE IN APPROX 3 YEARS. - Past Surgical History Past Surgical History: Yes Neuro Surgical History: No Pertinent History Cardiac: No Pertinent History Respiratory: No Pertinent History Gastrointestinal: Cholecystectomy Genitourinary: No Pertinent History Musculoskeletal: No Pertinent History Female Surgical History: Tubal Ligation Other Surgical History: Surgical history taken from previous ER visit due to patient not answering questions about her history during her triage. Significant Family History: no pertinent family hx - Female History Hx Last Menstrual Period: 01/01/14 - Social History Smoking Status: Current every day smoker How long have you smoked: 15 Exposure to second hand smoke: Yes Drug Use: none Patient Lives Alone: No - Social Determinants of Health Will the patient participate in the screening: Yes Do you worry about a steady place to live?: No In the past 12 months,have you had to go without utilities?: No Transportation Issues: No Has anyone in your support network made you feel unsafe?: No Have you or anyone in your house had to go without enough: No - Nursing Vital Signs Nursing Vital Signs: Initial Vital Signs Pulse Rate 82 11/24/23 21:28 Respiratory Rate 20 11/24/23 21:28 Blood Pressure 150/80 11/24/23 21:28 O2 Sat by Pulse Oximetry 97 11/24/23 21:28 Pain Scale Pain Intensity 10 - Physical Exam General Appearance: moderate distress, alert, anxiety, obese Eye Exam: PERRL/EOMI, eyes nml inspection Ears, Nose, Throat Exam: normal ENT inspection, moist mucous membranes Neck Exam: normal inspection, non-tender, supple, full range of motion Respiratory Exam: normal breath sounds, lungs clear, airway intact, No chest tenderness, No respiratory distress Cardiovascular Exam: regular rate/rhythm, normal heart sounds, normal peripheral pulses Gastrointestinal/Abdomen Exam: soft, normal bowel sounds, tenderness, guarding Pelvic Exam: not done Rectal Exam: not done Back Exam: normal inspection, normal range of motion, No CVA tenderness, No vertebral tenderness Extremity Exam: normal inspection, normal range of motion, pelvis stable Neurologic Exam: alert, oriented x 3, cooperative, admissions clerk II-XII nml as tested, sensation nml Skin Exam: normal color, warm, dry Lymphatic Exam: No adenopathy SpO2 Interpretation: normal O2 Delivery: Room Air - Course Nursing assessment & vital signs reviewed: Yes Ordered Tests: Active Orders 24 hr Category Date Time Status IV Insertion STAT Care 11/24/23 21:48 Active ABDOMEN AND PELVIS W/0 CONTRAS [CT] Stat Exams 11/24/23 21:49 Completed AMYLASE Stat Lab 11/24/23 22:50 Completed CBC W DIFF Stat Lab 11/24/23 22:50 Completed CMP Stat Lab 11/24/23 22:50 Completed LIPASE Stat Lab 11/24/23 22:50 Completed UA W/RFX UR CULTURE Stat Lab 11/24/23 22:26 Completed Medication Summary Discontinued Medications Generic Name Dose Route Start Last Admin Trade Name Freq PRN Reason Stop Dose Admin Hydromorphone HCl 1 mg 11/24/23 21:48 Hydromorphone 1 Mg/1ml Inj IV 11/24/23 21:49 STAT ONE Hydromorphone HCl 1 mg 11/24/23 22:28 11/24/23 22:30 Hydromorphone 1 Mg/1ml Inj IM 11/24/23 22:29 1 mg STAT ONE Administration Hydromorphone HCl Confirm 11/24/23 22:29 Hydromorphone 1 Mg/1ml Inj Administered 11/24/23 22:30 Dose 1 mg .ROUTE .STK-MED ONE Sodium Chloride 1,000 mls @ 999 mls/hr 11/24/23 21:48 11/24/23 22:52 Sodium Chloride 0.9% 1000 Ml IV 11/24/23 22:48 999 mls/hr .Q1H1M STA Administration Sodium Chloride Confirm 11/24/23 22:52 Sodium Chloride 0.9% 1000 Ml Administered 11/24/23 22:53 Dose 1,000 mls @ ud .ROUTE .[facility] ONE Ondansetron HCl 4 mg 11/24/23 21:48 Ondansetron Hcl 4 Mg/2 Ml Vial IV 11/24/23 21:49 STAT ONE Ondansetron HCl 4 mg 11/24/23 22:28 11/24/23 22:31 Zofran 4 Mg/Udtablet Orally Disintegrating PO 11/24/23 22:29 4 mg STAT ONE Administration Ondansetron HCl Confirm 11/24/23 22:29 Zofran 4 Mg/Udtablet Orally Disintegrating Administered 11/24/23 22:30 Dose 4 mg .ROUTE .[facility] ONE Lab/Rad Data: Laboratory Result Diagrams 11/24/23 22:50 11/24/23 22:50 Laboratory Results 11/24/23 11/24/23 11/24/23 Range/Units 22:50 22:50 22:26 WBC 7.0 (3.98-10.04) x10^3/uL RBC 4.88 (3.93-5.22) x10^6/uL Hgb 11.4 (11.2-15.7) g/dL Hct 36.8 (34.1-44.9) % MCV 75.4 L (79.4-94.8) fL MCH 23.4 L (25.6-32.2) pg MCHC 31.0 L (32.2-35.5) g/dL RDW 22.7 H (11.7-14.4) % Plt Count 63 L (182-369) x10^3/uL Gran % 77.0 H (34.0-71.1) % Immature Gran % (Auto) 3.2 H (0.001-0.429) % Nucleat RBC Rel Count 0.0 (0.00-0.2) % Eos # (Auto) 0.06 (0.04-0.36) x10^3/uL Immature Gran # (Auto) 0.22 H (0.001-0.031) x10^3u/L Absolute Lymphs (auto) 0.93 L (1.18-3.74) x10^3/uL Absolute Monos (auto) 0.30 (0.24-0.86) x10^3/uL Absolute Nucleated RBC 0.00 (0.00-0.012) x10^3u/L Lymphocytes % 13.3 L (19.3-51.7) % Monocytes % 4.3 L (4.7-12.5) % Eosinophils % 0.9 (0.7-5.8) % Basophils % 1.3 H (0.1-1.2) % Absolute Granulocytes 5.38 (1.56-6.13) x10^3/uL Basophils # 0.09 H (0.01-0.08) x10^3/uL Sodium 139 (135-145) mmol/L Potassium 3.9 (3.5-5.1) mmol/L Chloride 107 (98-107) mmol/L Carbon Dioxide 25 (22-30) mmol/L Anion Gap 10.5 (5-15) MEQ/L BUN 16 (7-17) mg/dL Creatinine 0.62 (0.52-1.04) mg/dL Estimated GFR 114.0 ML/MIN Glucose 96 (74-106) mg/dL Calcium 8.9 (8.4-10.2) mg/dL Total Bilirubin 0.50 (0.2-1.3) mg/dL AST 37 H (14-36) U/L ALT 19 (0-35) U/L Alkaline Phosphatase 174 H (38-126) U/L Serum Total Protein 7.3 (6.3-8.2) g/dL Albumin 3.8 (3.5-5.0) g/dL Amylase 67 (30-110) U/L Lipase 95 (23-300) U/L Urine Color Yellow (Yellow) Urine Appearance Clear (Clear) Urine pH 6.0 (4.6-8.0) Ur Specific [place] 1.015 (1.005-1.030) Urine Protein Negative (Negative) Urine Glucose (UA) Negative (Negative) mg/dL Urine Ketones Negative (Negative) Urine Blood Moderate A (Negative) Urine Nitrite Negative (Negative) Urine Bilirubin Negative (Negative) Urine Urobilinogen 0.2 (0.2) mg/dL Ur Leukocyte Esterase Negative (Negative) U Hyaline Cast (Auto) NONE SEEN (0-2) /LPF Urine Microscopic RBC 21-50 A (0-5) /HPF Urine Microscopic WBC 0-2 (0-5) /HPF Ur Epithelial Cells None Seen (None Seen) /HPF Urine Bacteria None Seen (None Seen) /HPF Urine Culture Reflexed NO (NO) - Progress Progress: improved, pain not gone completely Progress Note: 11/24/23 22:02 My medical decision making and the assignment of moderate to high complexity of this patient's medical issue today is based on review of the patient's past medical history, review the patient's medication list, review patient drug allergy list, history present illness and physical findings on examination. The workup in this patient includes placement of intravenous line, infusion normal saline solution, infusion of Zofran, infusion of Dilaudid, CBC, CMP, amylase, lipase, urinalysis, CT scan of the abdomen pelvis without contrast. The differential diagnosis includes but is not limited to pancreatitis, acute diverticulitis, colitis, bowel perforation, ureterolithiasis, pyelonephritis 11/24/23 22:29 Patient states that she has had Dilaudid and morphine in the past without adverse effects. 11/24/23 23:47 I interpreted the patient's laboratory data results. Patient does have abnormal labs. However, the are either unchanged from 11/05/2022 or have improved. Noth ing is emergent or acute. Patient states she is feeling better after our intervention. 11/25/23 00:10 CT scan of the abdomen pelvis without contrast was interpreted by the radiologist and I reviewed the impression. The impression states stable mild hepatosplenomegaly. There is mild intrahepatic biliary tree dilatation. There is stable ascites. There is a small fat-containing paramedical hernia with fat stranding. There is resolution of the patient's pleural effusion that were present on the last CT scan of the abdomen pelvis. Counseled pt/family regarding: lab results, diagnosis, need for follow-up, rad results Medical Desision Making - Independent Historian Additional History obtained from: Family - Diagnostic Testing Diagnostic test were ordered, analyzed, and reviewed by me: Yes Radiological Interpretation: Reviewed by me, Teleradiologist Report - Risk of complications Low Risk: Low risk of morbidity from additional dx testing or treatment - Departure Departure Disposition: Home Clinical Impression: Abdominal pain, Vomiting Condition: Stable Critical Care Time: No Referrals: JOCE [facility]MON[facility]EEPER OPERATOR [Primary Care Provider] - Follow up/PCP as directed Additional Instructions: Continue your medications as prescribed. Call all your specialist later today, 11/25/2023, to make arrangements for follow-up appointment for further evaluation management. Prescriptions: Ondansetron ODT 4 MG [Zofran Odt 4 mg] 4 mg PO Q6H PRN PRN #10 tablet PRN Reason: Vomiting
[2023-11-24 21:34] VITALS: PULSE 82; RESP 20
[2023-11-24] MEDS ORDERED: Zofran 4 MG/2 ML VIAL IV ONE (21:48)
[2023-11-24] MEDS ORDERED: Hydromorphone 1 mg/ml Injection IV ONE (21:48)
[2023-11-24] MEDS ORDERED: ZOFRAN ODT 4 MG ONE (22:29)
[2023-11-24] MEDS ORDERED: Hydromorphone 1 mg/ml Injection ONE (22:29)
[2023-11-24] MEDS: Hydromorphone 1 mg/ml Injection IM ONE (22:30)
[2023-11-24] MEDS: ZOFRAN ODT 4 MG PO ONE (22:31)
[2023-11-24 22:32] LABS: Appearance Clear (Clear); Bacteria None Seen /HPF (None Seen); Bilirubin Negative (Negative); Blood Moderate (Negative); Epithelial Cells None Seen /HPF (None Seen); Glucose, Urine Negative (Negative); Hyaline Casts NONE SEEN /LPF (0-2); Ketones Negative (Negative); Leukocyte Esterase Negative (Negative); Nitrite Negative (Negative); Protein,Urine Dip Negative (Negative); RBC 21-50 /HPF (0-5); Specific Gravity 1.015 (1.005-1.030); Urobilinogen 0.2 mg/dL (0.2); WBC 0-2 /HPF (0-5)
[2023-11-24 22:33] LABS: ADD URINE CULTURE? NO (NO)
[2023-11-24] MEDS: Sodium Chloride 0.9% 1000 ML 1,000 ML IV STA (22:52)
[2023-11-24] MEDS ORDERED: Sodium Chloride 0.9% 1000 ML 1,000 ML ONE (22:52)
[2023-11-24 22:55] LABS: Absolute Neutrophil Ct (ANC) 5.38 x10^3/uL (1.56-6.13); BASOPHIL % 1.3 % (0.1-1.2); Basophil (Absolute #) 0.09 x10^3/uL (0.01-0.08); Eosinophil % 0.9 % (0.7-5.8); Eosinophil (Absolute #) 0.06 x10^3/uL (0.04-0.36); Hematocrit 36.8 % (34.1-44.9); Hemoglobin 11.4 g/dL (11.2-15.7); IMMATURE GRAN # 0.22 x10^3u/L (0.001-0.031); IMMATURE GRAN % 3.2 % (0.001-0.429); Lymphocyte (Absolute #) 0.93 x10^3/uL (1.18-3.74); Lymphocytes % 13.3 % (19.3-51.7); Mean Cell Volume 75.4 fL (79.4-94.8); Mean Corpuscular Hemoglobin 23.4 pg (25.6-32.2); Monocytes % 4.3 % (4.7-12.5); Platelet Count 63 x10^3/uL (182-369); Red Blood Count 4.88 x10^6/uL (3.93-5.22); Red Cell Distribution Width 22.7 % (11.7-14.4)
[2023-11-24 23:07] LABS: ALBUMIN 3.8 g/dL (3.5-5.0); ANION GAP 10.5 MEQ/L (5-15); BILIRUBIN,TOTAL 0.5 mg/dL (0.2-1.3); Calcium 8.9 mg/dL (8.4-10.2); Creatinine 1 0.62 mg/dL (0.52-1.04); Potassium 3.9 mmol/L (3.5-5.1); Total Protein 7.3 g/dL (6.3-8.2)
--- NOTE | 2023-11-24 23:56 | XRAY ---
CLINICAL HISTORY: Vomiting; ABD pain COMPARISON: 11/03/2023 TECHNIQUE: A CT of the abdomen and pelvis was performed with axial images as well as sagittal and coronal reconstruction images without intravenous contrast. One of the following dose reduction techniques was utilized for this exam: Automated exposure control, adjustment of the mA and/or kV according to patient size, and use of iterative reconstruction. FINDINGS: Limited study due to lack of IV contrast to assess enhancement and any focal lesions. Mild fluid seen in the abdomen and pelvis. Mild hepatomegaly, liver span measured 15.9 cm on CC dimension at mid-clavicular line, with regular margins. There is mild intra-hepatic biliary tree dialatation.No focal or diffuse parenchymal abnormality. No hepatic mass is identified. The portal vein is normal. Pancreas appears grossly normal. No peripancreatic fat stranding, pancreatic pseudocyst or peripancreatic fluid collection. Mild splenomegaly, spleen span measured 15.2 cm, there is a linear hypodensity seen in its lateral aspect measured 1.2 cm . Both adrenal glands are unremarkable. Both kidneys are normal in size, shape and orientation. No calculi, cyst mass or hydronephrosis seen on either side. Both ureters and urinary bladder appear normal. Stomach and small bowel loops are unremarkable. Caecum and ileocecal junction appear normal. Appendix is normal. Large bowel loops appear normal without evidence of bowel obstruction. Apparent thickening of the rectum. Few para-aortic lymph nodes, the largest measured 1 cm in short axis seen on the left . No evidence of significant enlargement of the mesenteric or pelvic lymph nodes. Mild degenerative changes of the visualized skeleton.There is a 7 mm sclerotic bony lesion seen in the left iliac bone. There is a small fat-containing para-umbilical hernia with significant fat-stranding. IMPRESSION: 1. Mild hepatosplenomegaly (stable), Mild intrahepatic biliary tree dilatation.(interval change). 2. Ascites (stable). 3. Fat-containing para-umbilical hernia with fat-stranding, please correlate with clinical exam to rule out strangulated hernia (stable). 4. Splenic linear hypodensity(stable). 5. Left iliac bone sclerotic bony lesion.(stable). 6. Resolution of the pleural effusion (interval change). Electronically Signed by: Julia Casillas MD. (11/24/2023 23:52:47 EDT)
[2023-11-25 00:07] VITALS: BP 156/87; O2SAT 91
== END 2023-11-25 00:18 | disposition home or self-care (01) ==
LOC: ED 21:24
DX: R11.2 Nausea with vomiting, unspecified (principal); R10.9 Unspecified abdominal pain; Z79.899 Other long term (current) drug therapy; Z72.0 Tobacco use
CPT/HCPCS: 36000; 36415; 74176; 80053; 81001; 82150; 83690; 85025; 96360; 96372; 96374; 99284; J1170; Q0162

== ENCOUNTER 2023-12-15 13:52 | Emergency (ER) | payer OTHER ==
[2023-12-15 14:11] VITALS: TEMP 98.9; O2SAT 97
--- NOTE | 2023-12-15 15:30 | ERPHSYRPT ---
- History of Present Illness Time Seen by Provider: 12/15/23 15:16 Source: patient Exam Limitations: no limitations Patient Subjective Stated Complaint: Wound check Triage Nursing Assessment: Patient ambulated back to ED and transferred self to bed. Patient A+O X3. Patient's skin pink, warm and dry. Patient states she has a mole to the middle of her back that she has had for years. Patient states she let her sister use dental floss to cut blood supply to mole for the past /two weeks. Patient complains of pain to mole area 12/10. Physician History: Pt states 2 weeks ago her sister tied dental floss around a mole on her back and now has pain in the area; denies fever, vomiting, abdominal pain. Allergies/Adverse Reactions: tramadol HCl [From [facility]] Allergy (Verified 12/15/23 13:58) seizures Home Medications: levETIRAcetam [Levetiracetam] 1,000 mg PO DAILY 11/03/23 [History] Albuterol Common Canister [Ventolin Common Canister] 1 - 2 puff IH Q4H PRN 11/04/23 [History] Hx Tetanus, Diphtheria Vaccination/Date Given: Yes Hx Influenza Vaccination/Date Given: No Hx Pneumococcal Vaccination/Date Given: No Immunizations Up to Date: Yes Travel Risk - International Travel Have you traveled outside of the country in past 3 weeks: No - Emerging Infectious Disease Are you exhibiting symptoms associated with any current EIDs: No Symptoms: Abdominal Pain, Vomitting - Review of Systems Constitutional: No Fever Abdominal/Gastrointestinal: No Abdominal Pain, No Vomiting - Past Medical History Pertinent Past Medical History: Yes Neurological History: No Pertinent History ENT History: No Pertinent History Cardiac History: No Pertinent History Respiratory History: No Pertinent History Endocrine Medical History: No Pertinent History Musculoskeletal History: Degenerative Disk Disease, Rheumatoid Arthritis GI Medical History: No Pertinent History History: No Pertinent History Psycho-Social History: No Pertinent History Female Reproductive Disorders: Fibroids Other Medical History: STATES SHE HAS RHEUMATOID ARTHRITIS BUT DOES NOT FOLLOW- UP WITH [facility] OR TAKE ANY MEDICATION. HX OF SEIZURE DISORDER BUT HAS NOT TAKEN MEDS IN APPROX 4-6 MONTHS, HAS NOT HAD A SEIZURE IN APPROX 3 YEARS. - Past Surgical History Past Surgical History: Yes Neuro Surgical History: No Pertinent History Cardiac: No Pertinent History Respiratory: No Pertinent History Gastrointestinal: Cholecystectomy Genitourinary: No Pertinent History Musculoskeletal: No Pertinent History Female Surgical History: Tubal Ligation Other Surgical History: Surgical history taken from previous ER visit due to patient not answering questions about her history during her triage. Significant Family History: no pertinent family hx - Female History Hx Last Menstrual Period: last month Hx Now: No - Social History Smoking Status: Current every day smoker How long have you smoked: 15 Exposure to second hand smoke: Yes Drug Use: none Patient Lives Alone: No - Social Determinants of Health Will the patient participate in the screening: Yes Do you worry about a steady place to live?: No Do you have any problems with any of the following?: No known problems In the past 12 months,have you had to go without utilities?: No Transportation Issues: No Has anyone in your support network made you feel unsafe?: No Have you or anyone in your house had to go without enough: No - Nursing Vital Signs Nursing Vital Signs: Initial Vital Signs Temperature 98.9 F 12/15/23 14:03 Pulse Rate 88 12/15/23 14:03 Respiratory Rate 20 12/15/23 14:03 Blood Pressure 150/80 12/15/23 14:03 O2 Sat by Pulse Oximetry 97 12/15/23 14:03 Pain Scale Pain Intensity 7 - Physical Exam General Appearance: alert Eye Exam: PERRL/EOMI Ears, Nose, Throat Exam: TMs normal, moist mucous membranes Neck Exam: normal inspection Respiratory Exam: No respiratory distress Cardiovascular Exam: normal heart sounds Gastrointestinal/Abdomen Exam: normal bowel sounds Back Exam: other (~ 5mm diameter erythematous mole with some surrounding erythema over mid back) SpO2 Interpretation: normal SpO2: 97 O2 Delivery: Room Air - Course Nursing assessment & vital signs reviewed: Yes - Progress Progress: unchanged Counseled pt/family regarding: diagnosis, need for follow-up - Departure Departure Disposition: Home Clinical Impression: Cellulitis of back, Mole of back Condition: Stable Critical Care Time: No Referrals: JOCE [facility] TU[facility] BLOWER [Primary Care Provider] - Follow up/PCP as directed Instructions: Cellulitis (Skin Infection), Adult ED Additional Instructions: Follow up with private doctor tomorrow. Follow up with a Marine Oiler tomorrow for mole removal and biopsy. Prescriptions: clindamycin HCL [Clindamycin HCl] 300 mg PO Q6H #40 cap
[2023-12-15] MEDS ORDERED: CLEOCIN 150 MG CAPSULE ONE ×2 (15:34→15:36)
[2023-12-15] MEDS: CLEOCIN 150 MG CAPSULE PO ONE ×3 (15:35→15:36)
[2023-12-15 15:44] VITALS: BP 127/93; PULSE 80; RESP 18
== END 2023-12-15 15:45 | disposition home or self-care (01) ==
LOC: ED 13:52
DX: D22.5 Melanocytic nevi of trunk (principal); L03.312 Cellulitis of back [any part except buttock and flank]; Z79.899 Other long term (current) drug therapy; Z72.0 Tobacco use
CPT/HCPCS: 99281; A9270-GY

== ENCOUNTER 2024-01-20 19:39 | Emergency (ER) | payer OTHER ==
[2024-01-20 19:44] VITALS: TEMP 98.6; O2SAT 100
--- NOTE | 2024-01-20 19:57 | ERPHSYRPT ---
- History of Present Illness Time Seen by Provider: 01/20/24 19:56 Historian: patient, family Exam Limitations: no limitations Patient Subjective Stated Complaint: I was cleaning and my chest started cramping. It almost feels like a gallbladder attack except I don't have a gallbladder. Triage Nursing Assessment: Pt ambulated into ER without diff, spouse at bedside. Pt was cleaning and c/o chest cramping that she can't get to go away. Pt desc ribes it as feeling like a gallbladder attack but she does not have a gallbladder. Lungs clear, heart tones reg, no edema noted. Physician History: This is a 43-year-old white female patient of nurse practitioner Kareen and presents to the emergency department by private vehicle with her secondary to anterior, nonradiating, crampy chest pain that began prior to a rrival when she was cleaning. Patient wears oxygen via nasal cannula for COPD and is being worked up for pulmonary hypertension. She also has a history of seizure disorders, cirrhosis, bipolar disorder, rheumatoid arthritis, degenerative disc disease, and anxiety. She states the pain as "almost like a gallbladder attack". Patient has had a cholecystectomy in the past. Patient is a daily smoker of tobacco cigarettes. Patient's room air oxygen saturation level is 100%. Patient has no bleeding or clotting disorders. Patient states that tramadol has induced seizures and her in the past. Patient also states that she has had morphine in the past without any side effects. Timing/Duration: today Quality: cramping Location: substernal, central Chest Pain Radiation: no radiation Severity of Pain-Max: moderate Severity of Pain-Current: moderate Modifying Factors: Improves With: nothing Associated Symptoms: shortness of breath (Mild. Patient is being worked up for pulmonary hypertension) Nitro Today/Relief: no nitro taken today Aspirin Treatment Today: 81 mg x 4, provided by ED Allergies/Adverse Reactions: tramadol HCl [From [facility]] Allergy (Severe, Verified 01/20/24 19:55) seizures Home Medications: levETIRAcetam [Levetiracetam] 1,000 mg PO DAILY 11/03/23 [History] Albuterol Common Canister [Ventolin Common Canister] 1 - 2 puff IH Q4H PRN 11/04/23 [History] Hx Tetanus, Diphtheria Vaccination/Date Given: Yes Hx Influenza Vaccination/Date Given: Yes Hx Pneumococcal Vaccination/Date Given: No Travel Risk - International Travel Have you traveled outside of the country in past 3 weeks: No - Emerging Infectious Disease Are you exhibiting symptoms associated with any current EIDs: Yes Symptoms: Shortness of Breath - Review of Systems Constitutional: No Symptoms Eyes: No Symptoms Ears, Nose, & Throat: No Symptoms Respiratory: No Symptoms Cardiac: Chest Pain Abdominal/Gastrointestinal: No Symptoms Genitourinary Symptoms: No Symptoms Musculoskeletal: No Symptoms Skin: No Symptoms Neurological: No Symptoms Psychological: No Symptoms Endocrine: No Symptoms Hematologic/Lymphatic: No Symptoms Immunological/Allergic: No Symptoms All Other Systems: Reviewed and Negative - Past Medical History Pertinent Past Medical History: Yes Neurological History: Seizures ENT History: No Pertinent History Cardiac History: Other Respiratory History: No Pertinent History Endocrine Medical History: No Pertinent History Musculoskeletal History: Rheumatoid Arthritis GI Medical History: Gallbladder Disease History: No Pertinent History Psycho-Social History: Anxiety Female Reproductive Disorders: Fibroids Other Medical History: STATES SHE HAS RHEUMATOID ARTHRITIS BUT DOES NOT FOLLOW- UP WITH ROOF 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 HX OF SEIZURE DISORDER, PULMONA RY HTN - Past Surgical History Past Surgical History: Yes Neuro Surgical History: No Pertinent History Cardiac: No Pertinent History Respiratory: No Pertinent History Gastrointestinal: Cholecystectomy Genitourinary: No Pertinent History Musculoskeletal: No Pertinent History Female Surgical History: Tubal Ligation Other Surgical History: Surgical history taken from previous ER visit due to patient not answering questions about her history during her triage. Significant Family History: no pertinent family hx - Female History Hx Last Menstrual Period: 01/20/24 Hx Now: No - Social History Smoking Status: Current every day smoker How long have you smoked: 20 years Exposure to second hand smoke: Yes Drug Use: marijuana Patient Lives Alone: No - Social Determinants of Health Will the patient participate in the screening: Yes Do you worry about a steady place to live?: No Do you have any problems with any of the following?: No known problems In the past 12 months,have you had to go without utilities?: No Transportation Issues: No Has anyone in your support network made you feel unsafe?: No Have you or anyone in your house had to go without enough: No - Nursing Vital Signs Nursing Vital Signs: Initial Vital Signs Pulse Rate 72 01/20/24 19:42 Respiratory Rate 17 01/20/24 19:42 Blood Pressure 111/78 01/20/24 19:42 O2 Sat by Pulse Oximetry 100 01/20/24 19:42 Pain Scale Pain Intensity 5 - Physical Exam General Appearance: mild distress, alert, anxiety Eye Exam: PERRL/EOMI, eyes nml inspection Ears, Nose, Throat Exam: normal ENT inspection, moist mucous membranes Neck Exam: normal inspection, non-tender, supple, full range of motion Respiratory Exam: normal breath sounds, chest tenderness, lungs clear, airway intact, No respiratory distress Cardiovascular Exam: regular rate/rhythm, normal heart sounds, normal peripheral pulses Gastrointestinal/Abdomen Exam: soft, normal bowel sounds, No tenderness Pelvic Exam: not done Rectal Exam: not done Back Exam: normal inspection, normal range of motion, No CVA tenderness, No v ertebral tenderness Extremity Exam: normal inspection, normal range of motion, pelvis stable Neurologic Exam: alert, oriented x 3, cooperative, 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 However, she has not been wearing it and was not wearing it when I examined her and her oxygen saturation level remained to 100%) - Course Nursing assessment & vital signs reviewed: Yes EKG Interpreted by Me: RATE (81), Sinus Rhythm, NORMAL AXIS, NORMAL INTERVALS, NORMAL QRS, Other (No acute ischemic changes. QTc is 400. No significant change from the twelve-lead EKG that I reviewed performed in May 2022.) Ordered Tests: Active Orders 24 hr Category Date Time Status EKG-ER Only STAT Care 01/20/24 19:58 Active IV Insertion STAT Care 01/20/24 19:58 Active Pulse Oximetry (ED) STAT Care 01/20/24 19:58 Active CHEST 1 VIEW (PORTABLE) Stat Exams 01/20/24 19:58 Taken CHEST WITH CONTRAST [CT] Stat Exams 01/20/24 21:06 Taken CBC W DIFF Stat Lab 01/20/24 19:46 Completed CMP Stat Lab 01/20/24 19:46 Completed ETHYL ALCOHOL Stat Lab 01/20/24 19:46 Completed MAGNESIUM Stat Lab 01/20/24 19:46 Completed Manual Differential NC Stat Lab 01/20/24 19:46 Completed NT PRO BNPII Stat Lab 01/20/24 19:46 Completed TROPONIN Q4H Lab 01/20/24 19:46 Completed TROPONIN Q4H Lab 01/21/24 00:00 Ordered TROPONIN Q4H Lab 01/21/24 04:00 Ordered Medication Summary Generic Name Dose Route Start Last Admin Trade Name Cady PRN Reason Stop Dose Admin Sodium Chloride 500 mls @ 500 mls/hr 01/20/24 21:06 01/20/24 21:08 Sodium Chloride 0.9% 500 Ml IV 01/20/24 22:05 999 mls/hr .Q1H ONE Administration Discontinued Medications Generic Name Dose Route Start Last Admin Trade Name Cady PRN Reason Stop Dose Admin Aspirin 324 mg 01/20/24 19:58 01/20/24 20:08 Aspirin 81 Mg Tab.Chew PO 01/20/24 19:59 324 mg STAT ONE Administration Aspirin Confirm 01/20/24 20:07 Aspirin 81 Mg Tab.Chew Administered 01/20/24 20:08 Dose 324 mg .ROUTE .STK-MED ONE Sodium Chloride Confirm 01/20/24 21:08 Sodium Chloride 0.9% 500 Ml Administered 01/20/24 21:09 Dose 500 mls @ ud IV .STK-MED ONE Morphine Sulfate 4 mg 01/20/24 20:27 01/20/24 20:42 Morphine Sulfate 4 Mg/Ml Injection IV 01/20/24 20:28 4 mg STAT ONE Administration Morphine Sulfate Confirm 01/20/24 20:39 Morphine Sulfate 4 Mg/Ml Injection Administered 01/20/24 20:40 Dose 4 mg .ROUTE .STK-MED ONE Ondansetron HCl 4 mg 01/20/24 20:27 01/20/24 20:42 Ondansetron Hcl 4 Mg/2 Ml Vial IV 01/20/24 20:28 4 mg STAT ONE Administration Ondansetron HCl Confirm 01/20/24 20:39 Ondansetron Hcl 4 Mg/2 Ml Vial Administered 01/20/24 20:40 Dose 4 mg .ROUTE .STK-MED ONE Lab/Rad Data: Laboratory Result Diagrams 01/20/24 19:46 01/20/24 19:46 Laboratory Results 01/20/24 01/20/24 01/20/24 Range/Units 19:46 19:46 19:46 WBC 13.5 H (3.98-10.04) x10^3/uL RBC 5.19 (3.93-5.22) x10^6/uL Hgb 12.7 (11.2-15.7) g/dL Hct 39.9 (34.1-44.9) % MCV 76.9 L (79.4-94.8) fL MCH 24.5 L (25.6-32.2) pg MCHC 31.8 L (32.2-35.5) g/dL RDW 20.4 H (11.7-14.4) % Plt Count 50 L (182-369) x10^3/uL Segmented Neutrophils 73 H (1.56-6.13) % Band Neutrophils 3 H (0.0-2.0) % Lymphocytes (Manual) 19 L (24-44) % Monocytes (Manual) 5 (0.0-12.0) % Hypochromia 1+ Platelet Estimate DECREASED (NORMAL) RBC Morphology ABNORMAL Anisocytosis 2+ Sodium 140 (135-145) mmol/L Potassium 3.8 (3.5-5.1) mmol/L Chloride 104 (98-107) mmol/L Carbon Dioxide 28 (22-30) mmol/L Anion Gap 11.3 (5-15) MEQ/L BUN 18 H (7-17) mg/dL Creatinine 0.73 (0.52-1.04) mg/dL Estimated GFR 104.6 ML/MIN Glucose 90 (74-106) mg/dL Calcium 9.5 (8.4-10.2) mg/dL Magnesium 1.9 (1.6-2.3) mg/dL Total Bilirubin 0.50 (0.2-1.3) mg/dL AST 47 H (14-36) U/L ALT 25 (0-35) U/L Alkaline Phosphatase 147 H (38-126) U/L Troponin I < 0.012 (0.000-0.033) ng/mL NT-Pro-B Natriuret Pep 50.2 (<300) pg/mL Serum Total Protein 7.5 (6.3-8.2) g/dL Albumin 4.1 (3.5-5.0) g/dL Ethyl Alcohol < 10 (0-10) mg/dL - Progress Progress: improved, re-examined Air Movement: good Progress Note: 01/20/24 20:13 My medical decision making and the assignment of moderate complexity to this patient's medical issue today is based on review of the patient's past medical history, review of the patient's medication list, review patient drug allergy list, history present illness and physical findings on examination. The workup in this patient includes placement of intravenous line, provide the patient with 4 baby aspirin, twelve-lead EKG, troponin level, magnesium levels, CBC, CMP, ch est x-ray and BNP. Differential diagnosis includes but is not limited to pneumonia, CHF exacerbatio n, COPD extubation, myocardial infarction, arrhythmia, electrolyte abnormalities 01/20/24 21:07 I interpreted the laboratory data results. The patient has thrombocytopenia and leukocytosis. She is being worked up for pulmonary hypertension. Her BNP and troponin are normal. She has normal kidney function and electrolytes are within normal limits. I will order a CT scan of the chest with contrast to evaluate for pulmonary embolism or other acute intrathoracic abnormality. 01/20/24 22:[address] scan of the chest with contrast was interpreted by the radiologist and I reviewed the results. Patient has a cirrhotic liver. There is a 15 cm splenomegaly present. Otherwise normal CT PE exam. Blood Culture(s) Obtained: No Antibiotics given: No Counseled pt/family regarding: lab results, diagnosis, need for follow-up, rad results Medical Desision Making - Independent Historian Additional History obtained from: Spouse - Diagnostic Testing Diagnostic test were ordered, analyzed, and reviewed by me: Yes Radiological Interpretation: Reviewed by me, Teleradiologist Report - Risk of complications Low Risk: Low risk of morbidity from additional dx testing or treatment - Departure Clinical Impression: Thrombocytopenia, Leukocytosis, Chest pain Condition: Stable Critical Care Time: No Referrals: JOCE RAYMOND NP [Primary Care Provider] - Follow up/PCP as directed Additional Instructions: Take all your medications as prescribed. Call your primary care provider and certified travel counselor tomorrow, 01/21/2024, to make arrangements for a follow-up appointment for further evaluation and management and to be seen in the next 2 to 3 days.
[2024-01-20] MEDS ORDERED: BABY ASPIRIN 81 MG CHEW ONE (20:07)
[2024-01-20] MEDS: BABY ASPIRIN 81 MG CHEW PO ONE (20:08)
[2024-01-20 20:12] LABS: Hematocrit 39.9 % (34.1-44.9); Hemoglobin 12.7 g/dL (11.2-15.7); Mean Cell Volume 76.9 fL (79.4-94.8); Mean Corpuscular Hemoglobin 24.5 pg (25.6-32.2); Mean Corpuscular Hgb Concent. 31.8 g/dL (32.2-35.5); Platelet Count 50 x10^3/uL (182-369); Red Blood Count 5.19 x10^6/uL (3.93-5.22); Red Cell Distribution Width 20.4 % (11.7-14.4); White Blood Count 13.5 x10^3/uL (3.98-10.04)
[2024-01-20 20:32] LABS: ALBUMIN 4.1 g/dL (3.5-5.0); ALKALINE PHOSPHATASE 147 U/L (38-126); ANION GAP 11.3 MEQ/L (5-15); BLOOD UREA NITROGEN 18 mg/dL (7-17); CHLORIDE 104 mmol/L (98-107); Calcium 9.5 mg/dL (8.4-10.2); Carbon Dioxide 28 mmol/L (22-30); Creatinine 1 0.73 mg/dL (0.52-1.04); EST GLOMERULAR FILTRATION RATE 104.6 ML/MIN; ETHYL ALCOHOL < 10 mg/dL (0-10); Glucose 90 mg/dL (74-106); MAGNESIUM 1.9 mg/dL (1.6-2.3); NT PRO BNPII 50.2 pg/mL (<300); Potassium 3.8 mmol/L (3.5-5.1); SGOT/AST 47 U/L (14-36); SGPT/ALT 25 U/L (0-35); SODIUM 140 mmol/L (135-145); Total Protein 7.5 g/dL (6.3-8.2)
[2024-01-20] MEDS ORDERED: Zofran 4 MG/2 ML VIAL ONE (20:39)
[2024-01-20] MEDS ORDERED: MORPHINE SULFATE 4 MG INJ ONE (20:39)
[2024-01-20] MEDS: MORPHINE SULFATE 4 MG INJ IV ONE (20:42)
[2024-01-20] MEDS: Zofran 4 MG/2 ML VIAL IV ONE (20:42)
[2024-01-20 21:08] LABS: BAND 3 % (0.0-2.0); Lymphocytes 19 % (24-44); Monocyte 5 % (0.0-12.0); Neutrophils 73 % (1.56-6.13); Total Cells Counted 100
[2024-01-20] MEDS ORDERED: Sodium Chloride 0.9% 500 ML 500 ML IV ONE (21:08)
[2024-01-20] MEDS: Sodium Chloride 0.9% 500 ML 500 ML IV ONE (21:08)
[2024-01-20 21:11] LABS: ANISOCYTOSIS 2+; Platelet Estimate DECREASED (NORMAL)
[2024-01-20 21:12] LABS: Hypochromia 1+
[2024-01-20 22:07] VITALS: PULSE 78; RESP 23
[2024-01-20 22:10] VITALS: BP 130/79
--- NOTE | 2024-01-21 08:37 | XRAY ---
Indication: Chest pain. Comparison: May 16, 2022 Portable chest again demonstrates normal heart, lungs, and bony thorax.
--- NOTE | 2024-01-21 08:37 | XRAY ---
Indication: Chest pain. Short of breath. Multiple contiguous axial images obtained through the chest using 80 cc Isovue 370 contrast and PE protocol. Comparison: November 04, 2023 Good opacification of the pulmonary arteries including lobar and segmental branches. No pulmonary embolus. Heart not enlarged. Aorta is normal in course and caliber. No pathologic mediastinal/hilar lymphadenopathy. Lungs inflated with minimal bilateral dependent atelectasis. No suspicious pulmonary mass/nodule, infiltrate, or effusion. Bony thorax intact. Limited upper abdomen again demonstrates cirrhotic liver and 15 cm splenomegaly. Impression: 1. Continued negative pulmonary embolus. No new/acute cardiopulmonary abnormalities. 2. Again chronic findings including cirrhotic liver and splenomegaly.
== END 2024-01-20 22:14 | disposition home or self-care (01) ==
LOC: ED 19:39
DX: R07.9 Chest pain, unspecified (principal); D72.829 Elevated white blood cell count, unspecified; D69.6 Thrombocytopenia, unspecified; I27.20 Pulmonary hypertension, unspecified; F17.200 Nicotine dependence, unspecified, uncomplicated; J44.9 Chronic obstructive pulmonary disease, unspecified; Z99.81 Dependence on supplemental oxygen
CPT/HCPCS: 36000; 36415; 71045; 71260; 80053; 82077; 83735; 83880; 84484; 85025; 93005; 94760; 96374; 96375; 99284; J2270; J2405; A9270-GY

== ENCOUNTER 2024-01-24 11:54 | Emergency (ER) | payer OTHER ==
[2024-01-24] MEDS ORDERED: XYLOCAINE 1% HCL 20 ML MDV IJ ONE (11:55)
[2024-01-24 12:00] VITALS: TEMP 97.2
--- NOTE | 2024-01-24 12:04 | ERPHSYRPT ---
- History of Present Illness Time Seen by Provider: 01/24/24 12:01 Historian: patient, EMS, old records Exam Limitations: no limitations Patient Subjective Stated Complaint: PT states "I woke up this morning with severe belly pain and I have been vomiting. I need a shot of phenergan." Triage Nursing Assessment: Pt presented alert and oriented X 3, skin pwd. Pt unable to sit still, pt yelling and screaming and moaning. Physician History: This is a 43-year-old white female patient of nurse practitioner Kareen who has chronic intermittent abdominal pain issues. She woke up this morning at 7 AM with severe abdominal pain but did not arrive until noon by the youth coordinator service. Patient has had a cholecystectomy in the past. Patient was seen by me in our emergency department on 01/20/2024 for workup of chest pain. Patient was having severe abdominal pain and associated vomiting. She arrives to the emergency department yelling screaming and moaning and writhing around in pain. Patient does have a acting manager and they are working her up. Her acting manager is in [place]. 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 Patient denies chest pain and she denies shortness of breath at this time. Timing/Duration: today Activities at Onset: none Quality: cramping, throbbing Abdominal Pain Onset Location: generalized abdomen Pain Radiation: no radiation Severity of Pain-Max: moderate Severity of Pain-Current: moderate Modifying Factors: Improves With: vomiting Associated Symptoms: loss of appetite, nausea, vomiting, No chest pain, No diarrhea, No shortness of breath Previous symptoms: same symptoms as today, recently seen, recently treated Allergies/Adverse Reactions: tramadol HCl [From [facility]] Allergy (Severe, Verified 01/20/24 19:55) seizures Home Medications: levETIRAcetam [Levetiracetam] 1,000 mg PO DAILY 11/03/23 [History] Albuterol Common Canister [Ventolin Common Canister] 1 - 2 puff IH Q4H PRN 11/04/23 [History] Hx Tetanus, Diphtheria Vaccination/Date Given: Yes Hx Influenza Vaccination/Date Given: Yes Hx Pneumococcal Vaccination/Date Given: No Immunizations Up to Date: No Travel Risk - International Travel Have you traveled outside of the country in past 3 weeks: No - Emerging Infectious Disease Are you exhibiting symptoms associated with any current EIDs: Yes Symptoms: Abdominal Pain - Review of Systems Constitutional: No Symptoms Eyes: No Symptoms Ears, Nose, & Throat: No Symptoms Respiratory: No Symptoms Cardiac: No Symptoms Abdominal/Gastrointestinal: Abdominal Pain, Nausea, Vomiting, Appetite Changes Genitourinary Symptoms: No Symptoms Musculoskeletal: No Symptoms Skin: No Symptoms Neurological: No Symptoms Psychological: No Symptoms Endocrine: No Symptoms Hematologic/Lymphatic: No Symptoms Immunological/Allergic: No Symptoms All Other Systems: Reviewed and Negative - Past Medical History Pertinent Past Medical History: Yes Neurological History: Seizures ENT History: No Pertinent History Cardiac History: Other Respiratory History: No Pertinent History Endocrine Medical History: No Pertinent History Musculoskeletal History: Rheumatoid Arthritis GI Medical History: Gallbladder Disease History: No Pertinent History Psycho-Social History: Anxiety Female Reproductive Disorders: Fibroids Other Medical History: STATES SHE HAS RHEUMATOID ARTHRITIS BUT DOES NOT FOLLOW- UP WITH DISTRICT FIRE CHIEF OR TAKE ANY MEDICATION. HX OF SEIZURE DISORDER, PULMONARY HTN - Past Surgical History Past Surgical History: Yes Neuro Surgical History: No Pertinent History Cardiac: No Pertinent History Respiratory: No Pertinent History Gastrointestinal: Cholecystectomy Genitourinary: No Pertinent History Musculoskeletal: No Pertinent History Female Surgical History: Tubal Ligation Other Surgical History: Surgical history taken from previous ER visit due to patient not answering questions about her history during her triage. Significant Family History: no pertinent family hx - Female History Hx Last Menstrual Period: 01/23/2024 Hx Now: No - Social History Smoking Status: Current every day smoker How long have you smoked: 20 years Exposure to second hand smoke: Yes Drug Use: marijuana Patient Lives Alone: No - Social Determinants of Health Will the patient participate in the screening: Yes Do you worry about a steady place to live?: No Do you have any problems with any of the following?: No known problems In the past 12 months,have you had to go without utilities?: No Transportation Issues: No Has anyone in your support network made you feel unsafe?: No Have you or anyone in your house had to go without enough: No - Nursing Vital Signs Nursing Vital Signs: Initial Vital Signs Temperature 97.2 F 01/24/24 11:55 Pulse Rate 86 01/24/24 11:55 Respiratory Rate 20 01/24/24 11:55 Blood Pressure 141/76 01/24/24 11:55 O2 Sat by Pulse Oximetry 99 01/24/24 11:55 Pain Scale Pain Intensity 4 - Physical Exam General Appearance: mild distress, alert, anxiety Eye Exam: PERRL/EOMI, eyes nml inspection Ears, Nose, Throat Exam: normal ENT inspection, moist mucous membranes Neck Exam: normal inspection, non-tender, supple, full range of motion Respiratory Exam: normal breath sounds, lungs clear, airway intact, No chest tenderness, No respiratory distress Cardiovascular Exam: regular rate/rhythm, normal heart sounds, normal peripheral pulses Gastrointestinal/Abdomen Exam: soft, normal bowel sounds, tenderness (Generalized), guarding (Generalized), No rebound Pelvic Exam: not done Rectal Exam: not done Back Exam: normal inspection, normal range of motion, No CVA tenderness, No vertebral tenderness Extremity Exam: normal inspection, normal range of motion, pelvis stable Neurologic Exam: alert, oriented x 3, cooperative, client services assistant II-XII nml as tested, sensation nml Skin Exam: normal color, warm, dry Lymphatic Exam: No adenopathy SpO2 Interpretation: normal SpO2: 99 O2 Delivery: Room Air - Course Nursing assessment & vital signs reviewed: Yes Ordered Tests: Active Orders 24 hr Category Date Time Status EKG-ER Only STAT Care 01/24/24 12:02 Active IV Insertion STAT Care 01/24/24 12:02 Active ABDOMEN AND PELVIS W/0 CONTRAS [CT] Stat Exams 01/24/24 12:02 Completed AMYLASE Stat Lab 01/24/24 12:20 Completed CBC W DIFF Stat Lab 01/24/24 12:20 Completed CMP Stat Lab 01/24/24 12:20 Completed CULTURE,URINE Stat Lab 01/24/24 12:43 Received LIPASE Stat Lab 01/24/24 12:20 Completed Manual Differential NC Stat Lab 01/24/24 12:20 Completed TROPONIN Q4H Lab 01/24/24 12:20 Completed TROPONIN Q4H Lab 01/24/24 16:15 Ordered TROPONIN Q4H Lab 01/24/24 20:15 Ordered UA W/RFX UR CULTURE Stat Lab 01/24/24 12:43 Completed Medication Summary Discontinued Medications Generic Name Dose Route Start Last Admin Trade Name Freq PRN Reason Stop Dose Admin Ceftriaxone Sodium 1,000 mg 01/24/24 14:08 Ceftriaxone Sodium 1000 Mg Inj Vial IM 01/24/24 14:09 STAT ONE Hydromorphone HCl 1 mg 01/24/24 12:02 01/24/24 12:14 Hydromorphone 1 Mg/1ml Inj IV 01/24/24 12:03 1 mg STAT ONE Administration Hydromorphone HCl Confirm 01/24/24 12:06 Hydromorphone 1 Mg/1ml Inj Administered 01/24/24 12:07 Dose 1 mg .ROUTE .STK-MED ONE Sodium Chloride 1,000 mls @ 999 mls/hr 01/24/24 12:02 01/24/24 13:14 Sodium Chloride 0.9% 1000 Ml IV 01/24/24 13:02 Infused .Q1H1M STA Infusion Sodium Chloride Confirm 01/24/24 12:06 Sodium Chloride 0.9% 1000 Ml Administered 01/24/24 12:07 Dose 1,000 mls @ ud .ROUTE .STK-MED ONE Promethazine HCl 12.5 mg/ 100.5 mls @ 201 mls/hr 01/24/24 13:20 01/24/24 13:57 Sodium Chloride IV 01/24/24 13:49 Not Given STAT ONE Sodium Chloride Confirm 01/24/24 13:51 Sodium Chloride 0.9% Administered 01/24/24 13:52 Dose 100 mls @ ud .ROUTE .STK-MED ONE Ondansetron HCl 4 mg 01/24/24 12:02 01/24/24 12:14 Ondansetron Hcl 4 Mg/2 Ml Vial IV 01/24/24 12:03 4 mg STAT ONE Administration Ondansetron HCl Confirm 01/24/24 12:06 Ondansetron Hcl 4 Mg/2 Ml Vial Administered 01/24/24 12:07 Dose 4 mg .ROUTE .STK-MED ONE Pantoprazole Sodium 40 mg 01/24/24 12:02 01/24/24 12:14 Pantoprazole 40 Mg Vial IV 01/24/24 12:03 40 mg STAT ONE Administration Pantoprazole Sodium Confirm 01/24/24 12:06 Pantoprazole 40 Mg Vial Administered 01/24/24 12:07 Dose 40 mg IV .STK-MED ONE Prochlorperazine Edisylate 10 mg 01/24/24 13:43 01/24/24 13:57 Prochlorperazine Edisylate 10 Mg/2 Ml Vial IM 01/24/24 13:44 10 mg STAT ONE Administration Prochlorperazine Edisylate Confirm 01/24/24 13:51 Prochlorperazine Edisylate 10 Mg/2 Ml Vial Administered 01/24/24 13:52 Dose 10 mg .ROUTE .STK-MED ONE Promethazine HCl Confirm 01/24/24 13:51 Promethazine Hcl 25 Mg/Ml Vial Administered 01/24/24 13:52 Dose 25 mg .ROUTE .STK-MED ONE Lab/Rad Data: Laboratory Result Diagrams 01/24/24 12:20 01/24/24 12:20 Laboratory Results 01/24/24 01/24/24 01/24/24 Range/Units 12:43 12:20 12:20 WBC (3.98-10.04) x10^3/uL RBC (3.93-5.22) x10^6/uL Hgb (11.2-15.7) g/dL Hct (34.1-44.9) % MCV (79.4-94.8) fL MCH (25.6-32.2) pg MCHC (32.2-35.5) g/dL RDW (11.7-14.4) % Plt Count (182-369) x10^3/uL Segmented Neutrophils (1.56-6.13) % Lymphocytes (Manual) (24-44) % Monocytes (Manual) (0.0-12.0) % Basophils (Manual) (0.0-1.0) % Metamyelocytes % Myelocytes % Nucleated RBCs % Platelet Estimate (NORMAL) RBC Morphology Anisocytosis Sodium 138 (135-145) mmol/L Potassium 3.8 (3.5-5.1) mmol/L Chloride 107 (98-107) mmol/L Carbon Dioxide 21 L (22-30) mmol/L Anion Gap 13.3 (5-15) MEQ/L BUN 14 (7-17) mg/dL Creatinine 0.64 (0.52-1.04) mg/dL Estimated GFR 112.4 ML/MIN Glucose 116 H (74-106) mg/dL Calcium 9.1 (8.4-10.2) mg/dL Total Bilirubin 0.60 (0.2-1.3) mg/dL AST 38 H (14-36) U/L ALT 21 (0-35) U/L Alkaline Phosphatase 158 H (38-126) U/L Troponin I < 0.012 (0.000-0.033) ng/mL Serum Total Protein 7.8 (6.3-8.2) g/dL Albumin 4.3 (3.5-5.0) g/dL Amylase 82 (30-110) U/L Lipase 113 (23-300) U/L Urine Color Yellow (Yellow) Urine Appearance Cloudy A (Clear) Urine pH 5.5 (4.6-8.0) Ur Specific [place] 1.025 (1.005-1.030) Urine Protein 30 (Negative) Urine Glucose (UA) Negative (Negative) mg/dL Urine Ketones Trace A (Negative) Urine Blood Large A (Negative) Urine Nitrite Negative (Negative) Urine Bilirubin Negative (Negative) Urine Urobilinogen 0.2 (0.2) mg/dL Ur Leukocyte Esterase Moderate A (Negative) U Hyaline Cast (Auto) NONE SEEN (0-2) /LPF Urine Microscopic RBC 6-10 A (0-5) /HPF Urine Microscopic WBC >100 A (0-5) /HPF Ur Epithelial Cells Rare (None Seen) /HPF Urine Bacteria Many A (None Seen) /HPF Urine Culture Reflexed YES (NO) 01/24/24 Range/Units 12:20 WBC 13.1 H (3.98-10.04) x10^3/uL RBC 5.20 (3.93-5.22) x10^6/uL Hgb 12.8 (11.2-15.7) g/dL Hct 41.0 (34.1-44.9) % MCV 78.8 L (79.4-94.8) fL MCH 24.6 L (25.6-32.2) pg MCHC 31.2 L (32.2-35.5) g/dL RDW 20.6 H (11.7-14.4) % Plt Count 62 L (182-369) x10^3/uL Segmented Neutrophils 81 H (1.56-6.13) % Lymphocytes (Manual) 13 L (24-44) % Monocytes (Manual) 3 (0.0-12.0) % Basophils (Manual) 1 (0.0-1.0) % Metamyelocytes 1 % Myelocytes 1 % Nucleated RBCs 1 % Platelet Estimate DECREASED (NORMAL) RBC Morphology ABNORMAL Anisocytosis 1+ Sodium (135-145) mmol/L Potassium (3.5-5.1) mmol/L Chloride (98-107) mmol/L Carbon Dioxide (22-30) mmol/L Anion Gap (5-15) MEQ/L BUN (7-17) mg/dL Creatinine (0.52-1.04) mg/dL Estimated GFR ML/MIN Glucose (74-106) mg/dL Calcium (8.4-10.2) mg/dL Total Bilirubin (0.2-1.3) mg/dL AST (14-36) U/L ALT (0-35) U/L Alkaline Phosphatase (38-126) U/L Troponin I (0.000-0.033) ng/mL Serum Total Protein (6.3-8.2) g/dL Albumin (3.5-5.0) g/dL Amylase (30-110) U/L Lipase (23-300) U/L Urine Color (Yellow) Urine Appearance (Clear) Urine pH (4.6-8.0) Ur Specific [place] (1.005-1.030) Urine Protein (Negative) Urine Glucose (UA) (Negative) mg/dL Urine Ketones (Negative) Urine Blood (Negative) Urine Nitrite (Negative) Urine Bilirubin (Negative) Urine Urobilinogen (0.2) mg/dL Ur Leukocyte Esterase (Negative) U Hyaline Cast (Auto) (0-2) /LPF Urine Microscopic RBC (0-5) /HPF Urine Microscopic WBC (0-5) /HPF Ur Epithelial Cells (None Seen) /HPF Urine Bacteria (None Seen) /HPF Urine Culture Reflexed (NO) - Progress Progress: improved, pain not gone completely, re-examined Progress Note: 01/24/24 12:24 My medical decision making and the assignment of moderate complexity to this patient's medical issue today is based on review of the patient's past medical history, review of the patient's medication list, review the patient drug allergy list, history present illness, physical findings on examination. The workup in this patient includes placement of intravenous line, infusion of normal saline solution, infusion of Dilaudid intravenously, infusion of Zofran intravenously, CBC, CMP, amylase, lipase, urinalysis, twelve-lead EKG, troponin level. Differential diagnosis includes but is not limited to pancreatitis, acute surgi lisa abdomen, colitis, diverticulitis, acute appendicitis, bowel obstruction, urinary tract infection, ureterolithiasis 01/24/24 14:09 Interpreted the patient's laboratory data results. The patient has a leukocytosis, mild dehydration and a urinary tract infection. The patient pulled out her IV line. CT scan of the abdomen and pelvis without contrast was interpreted by the radiologist. Today's study was compared to the similar study dated November 24, 2023. There is stable CT scan of the abdomen pelvis without contrast again demonstrating inflammatory omental left periumbilical ventral hernia. No new or acute abnormalities. Noncontrasted stomach and bowel loops are nonobstructed with normal appendix. There is no free air and no free fluid. Counseled pt/family regarding: lab results, diagnosis, rad results Medical Desision Making - Independent Historian Additional History obtained from: Spouse - Diagnostic Testing Diagnostic test were ordered, analyzed, and reviewed by me: Yes Radiological Interpretation: Reviewed by me, Teleradiologist Report - Risk of complications The pt has a mod risk of morbidity or mortality based on: Need for prescription drug management - Departure Departure Disposition: Home Clinical Impression: UTI (urinary tract infection), Periumbilical hernia, Mild dehydration, Leukocytosis Condition: Stable Critical Care Time: No Referrals: JOCE RAYMOND, PLANTING MACHINE OPERATOR [Primary Care Provider] - Follow up/PCP as directed Additional Instructions: Drink plenty of clear liquids before advancing your diet. Avoid fatty greasy spicy foods. Take your antibiotics and other medications as prescribed. Call your primary care provider today, 01/24/2024, to make arrangements for follow-up appointment to be seen in the next 3 to 5 days. Discussed with them referral to a general surgeon for intervention to manage the periumbilical hernia that has been present since at least November 2023. Prescriptions: Promethazine HCl 25 mg [Phenergan 25 mg] 25 mg PO Q8H PRN PRN #10 tablet PRN Reason: Nausea/Vomiting Ciprofloxacin [Cipro 500 MG] 500 mg PO BID #14 tablet
[2024-01-24] MEDS ORDERED: Sodium Chloride 0.9% 1000 ML 1,000 ML ONE (12:06)
[2024-01-24] MEDS ORDERED: PROTONIX 40 MG IV IV ONE (12:06)
[2024-01-24] MEDS ORDERED: Zofran 4 MG/2 ML VIAL ONE (12:06)
[2024-01-24] MEDS ORDERED: Hydromorphone 1 mg/ml Injection ONE (12:06)
[2024-01-24] MEDS: Sodium Chloride 0.9% 1000 ML 1,000 ML IV STA (12:09)
[2024-01-24] MEDS: Zofran 4 MG/2 ML VIAL IV ONE (12:14)
[2024-01-24] MEDS: PROTONIX 40 MG IV IV ONE (12:14)
[2024-01-24] MEDS: Hydromorphone 1 mg/ml Injection IV ONE (12:14)
[2024-01-24 12:40] LABS: Hemoglobin 12.8 g/dL (11.2-15.7); Mean Cell Volume 78.8 fL (79.4-94.8); Mean Corpuscular Hemoglobin 24.6 pg (25.6-32.2); Mean Corpuscular Hgb Concent. 31.2 g/dL (32.2-35.5); Platelet Count 62 x10^3/uL (182-369); Red Cell Distribution Width 20.6 % (11.7-14.4); White Blood Count 13.1 x10^3/uL (3.98-10.04)
[2024-01-24 12:44] VITALS: BP 141/72
[2024-01-24 12:50] LABS: ALBUMIN 4.3 g/dL (3.5-5.0); ANION GAP 13.3 MEQ/L (5-15); BILIRUBIN,TOTAL 0.6 mg/dL (0.2-1.3); Calcium 9.1 mg/dL (8.4-10.2); Creatinine 1 0.64 mg/dL (0.52-1.04); EST GLOMERULAR FILTRATION RATE 112.4 ML/MIN; Potassium 3.8 mmol/L (3.5-5.1); Total Protein 7.8 g/dL (6.3-8.2)
[2024-01-24 12:58] LABS: Appearance Cloudy (Clear); Bacteria Many /HPF (None Seen); Bilirubin Negative (Negative); Blood Large (Negative); Epithelial Cells Rare /HPF (None Seen); Glucose, Urine Negative (Negative); Hyaline Casts NONE SEEN /LPF (0-2); Ketones Trace (Negative); Leukocyte Esterase Moderate (Negative); Nitrite Negative (Negative); Ph 5.5 (4.6-8.0); Protein,Urine Dip 30 (Negative); Specific Gravity 1.025 (1.005-1.030); Urobilinogen 0.2 mg/dL (0.2); WBC >100 /HPF (0-5)
[2024-01-24 13:03] LABS: ADD URINE CULTURE? YES (NO)
[2024-01-24 13:47] LABS: Basophil 1 % (0.0-1.0); Lymphocytes 13 % (24-44); Metamyelocyte 1 %; Monocyte 3 % (0.0-12.0); Myelocyte 1 %; Neutrophils 81 % (1.56-6.13); Nucleated Red Blood Cell 1 %; Total Cells Counted 100
[2024-01-24 13:48] LABS: ANISOCYTOSIS 1+; Platelet Estimate DECREASED (NORMAL)
[2024-01-24] MEDS ORDERED: Sodium Chloride 0.9% 100 ML ONE (13:51)
[2024-01-24] MEDS ORDERED: Phenergan 25 MG INJ ONE (13:51)
[2024-01-24] MEDS ORDERED: Compazine 10 MG/2 ML ONE (13:51)
--- NOTE | 2024-01-24 13:51 | XRAY ---
Indication: Pain and vomiting. Multiple contiguous axial images obtained through the abdomen and pelvis without contrast. Comparison: November 24, 2023 Lung bases clear again with minimal left base fibrosis/scarring. Heart not enlarged. Noncontrasted stomach and bowel loops nonobstructed again with normal appendix. Stable small fatty left periumbilical hernia with herniated omental fat stranding suggesting inflammation. Again 14.4 cm splenomegaly and cholecystectomy. No free fluid/air. Remaining liver, pancreas, spleen, adrenal glands, kidneys, ureters, bladder, uterus, and aorta are unremarkable for noncontrast exam. Osseous structures intact. Impression: Stable CT abdomen/pelvis without contrast exam again demonstrating inflammatory fatty left periumbilical ventral hernia and splenomegaly. No new abnormalities on this noncontrast exam.
[2024-01-24] MEDS: Compazine 10 MG/2 ML IM ONE (13:57)
[2024-01-24] MEDS: Phenergan 25 MG INJ*** 12.5 MG in Sodium Chloride 0.9% 100 ML IV ONE (13:57)
[2024-01-24] MEDS ORDERED: Rocephin 1000 MG INJ ONE (14:10)
[2024-01-24 14:14] VITALS: O2SAT 99
[2024-01-24] MEDS: Rocephin 1000 MG INJ IM ONE (14:14)
[2024-01-24 14:49] VITALS: PULSE 54; RESP 20
== END 2024-01-24 14:49 | disposition home or self-care (01) ==
LOC: ED 11:54
DX: N39.0 Urinary tract infection, site not specified (principal); K42.9 Umbilical hernia without obstruction or gangrene; E86.0 Dehydration; D72.829 Elevated white blood cell count, unspecified; R10.84 Generalized abdominal pain; I10 Essential (primary) hypertension; Z79.899 Other long term (current) drug therapy; Z72.0 Tobacco use; Z99.81 Dependence on supplemental oxygen
CPT/HCPCS: 36000; 36415; 74176; 80053; 81001; 82150; 83690; 84484; 85025; 87077; 87086; 87186; 93005; 96360; 96372; 96374; 96375; 99284; J0696; J1170; J2405; J2550

== ENCOUNTER 2024-07-15 21:07 | Observation (INO) | payer OTHER ==
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
[2024-07-15] MEDS ORDERED: Miralax Powder 17GM PACKET ONE (22:06)
[2024-07-15] MEDS: Miralax Powder 17GM PACKET PO ONE (22:09)
[2024-07-15 22:14] LABS: Absolute Neutrophil Ct (ANC) 18.66 x10^3/uL (1.56-6.13); BASOPHIL % 2.1 % (0.1-1.2); Basophil (Absolute #) 0.62 x10^3/uL (0.01-0.08); Eosinophil % 0.7 % (0.7-5.8); Hematocrit 29.7 % (34.1-44.9); Hemoglobin 8.7 g/dL (11.2-15.7); IMMATURE GRAN % 20.7 % (0.001-0.429); Lymphocyte (Absolute #) 2.41 x10^3/uL (1.18-3.74); Lymphocytes % 8.2 % (19.3-51.7); Mean Cell Volume 69.6 fL (79.4-94.8); Mean Corpuscular Hemoglobin 20.4 pg (25.6-32.2); Mean Corpuscular Hgb Concent. 29.3 g/dL (32.2-35.5); Monocyte (Absolute #) 1.49 x10^3/uL (0.24-0.86); Monocytes % 5.1 % (4.7-12.5); NUCLEATED RBC % 0.7 % (0.00-0.2); Neutrophil % 63.2 % (34.0-71.1); Platelet Count 60 x10^3/uL (182-369); Red Blood Count 4.27 x10^6/uL (3.93-5.22); Red Cell Distribution Width 22.7 % (11.7-14.4)
[2024-07-15] MEDS: Sodium Chloride 0.9% 1000 ML 1,000 ML IV STA (22:15)
[2024-07-15 22:17] LABS: White Blood Count 29.5 x10^3/uL (3.98-10.04)
[2024-07-15 22:19] LABS: Appearance Clear (Clear); Bacteria Many /HPF (None Seen); Bilirubin Negative (Negative); Blood NHT (Negative); Epithelial Cells Rare /HPF (None Seen); Glucose, Urine Negative (Negative); Hyaline Casts NONE SEEN /LPF (0-2); Ketones Negative (Negative); Leukocyte Esterase Moderate (Negative); Nitrite Negative (Negative); Protein,Urine Dip Negative (Negative); Urobilinogen 0.2 mg/dL (0.2); WBC 51-100 /HPF (0-5)
[2024-07-15 22:33] LABS: ALBUMIN 4.1 g/dL (3.5-5.0); ANION GAP 10.4 MEQ/L (5-15); BILIRUBIN,TOTAL 0.7 mg/dL (0.2-1.3); Calcium 8.9 mg/dL (8.4-10.2); Creatinine 1 0.74 mg/dL (0.52-1.04); EST GLOMERULAR FILTRATION RATE 102.9 ML/MIN; Potassium 4.7 mmol/L (3.5-5.1); Total Protein 7.4 g/dL (6.3-8.2)
[2024-07-15 22:58] LABS: INR 1.12 (0.8-3.0); PROTIME 12.1 SECONDS (9.4-12.5); PTT 29.1 SECONDS (25.1-36.5)
[2024-07-15 23:02] LABS: D-DIMER QUANTITATIVE 3.54 mg/L (0.0-0.50)
[2024-07-15] MEDS ORDERED: Sodium Chloride 0.9% 1000 ML 1,000 ML ONE (23:15)
[2024-07-15] MEDS ORDERED: Zofran 4 MG/2 ML VIAL ONE (23:15)
[2024-07-15] MEDS: Zofran 4 MG/2 ML VIAL IV ONE (23:19)
[2024-07-15] MEDS: Sodium Chloride 0.9% 1000 ML 1,000 ML IV SCH (23:19)
[2024-07-15] MEDS ORDERED: PIPERACILLIN/TAZOBACTAM IV ONE (23:22)
[2024-07-15 23:23] LABS: Direct Bilirubin 0.3 mg/dL (0.0-0.4); TSH, 3RD Generation 2.519 mIU/L (0.470-4.680)
[2024-07-15] MEDS ORDERED: Sodium Chloride 100ML MINI-BAG PLUS 100 ML IV ONE (23:23)
--- NOTE | 2024-07-15 23:57 | XRAY ---
CLINICAL HISTORY: abd pain COMPARISON: 24 November 2023. TECHNIQUE: Contiguous axial images were obtained from the level of the diaphragm to the pubic symphysis without intravenous or oral contrast. Coronal and sagittal reconstructions were likewise performed and indicated to increase the sensitivity for detecting clinically relevant pathology. CT scan was performed according to ALARA (as low as reasonably achievable). FINDINGS: Subpleural subsegmental linear atelectasis is noted involving lateral basal segment of left lower lobe. Evaluation of the abdominal and pelvic visceral organs is limited without intravenous contrast. Gross splenomegaly is noted measuring 20 cm in craniocaudal extent. This has significantly increased as compared to the previous study. Borderline hepatomegaly measuring 16 cm in craniocaudal extent. No significant interval change. Gallbladder is not visualized, cholecystectomy status. Left paraumbilical hernia is noted with herniation of omental fat through this defect. Defect measures approximately 1.3 cm in transverse dimension. Fat stranding is noted involving the herniated part. No significant interval change. Mild free fluid is noted in the pelvis. Stable sclerotic lesion involving the left iliac bone. Fecal loaded with gaseous distension of the large bowel is noted. The unenhanced pancreas is grossly unremarkable. The adrenal glands are grossly unremarkable. The kidneys are normal in size. There is no hydronephrosis. No perinephric stranding is seen. The ureters are normal in caliber. No evidence of focal or diffuse bowel wall thickening or evidence of bowel obstruction is seen. The urinary bladder is normal in contour. No adenopathy or fluid collections are seen. Pelvic viscera are grossly unremarkable. The aorta is normal in caliber. No aggressive appearing osseous lesions are identified. Rest of the findings are unchanged compared to the previous CT scan. IMPRESSION: 1. Gross splenomegaly is noted measuring 20 cm in craniocaudal extent. This has significantly increased as compared to the previous study. 2. Borderline hepatomegaly measuring 16 cm in craniocaudal extent. No significant interval change. 3. Left paraumbilical hernia as described above. No significant interval change. 4. Mild free fluid is noted in the pelvis. 5. Stable sclerotic lesion involving the left iliac bone. 6. Fecal loaded with gaseous distension of the large bowel is noted. Rest of the findings are unchanged compared to the previous CT scan. Electronically Signed by: Carlos Can MD. (07/15/2024 23:53:56 EST)
[2024-07-15 23:58] LABS: Folate (Folic Acid) 4.66 ng/mL (2.76 - >20); Vitamin B12 > 1000 pg/mL (239-931)
[2024-07-16] MEDS: PIPERACILLIN/TAZOBACTAM 3.375 GM in Sodium Chloride 100ML MINI-BAG PLUS 100 ML IV ONE
--- NOTE | 2024-07-16 01:21 | XRAY ---
CLINICAL HISTORY: left lower chest, upper abd pain COMPARISON: 15 jul 2024 TECHNIQUE: Contrast enhanced thin slice CT angiography scan of the abdominal aorta was performed with intravenous contrast. Angiographic images were processed, 3D MIP images were acquired for interpretation. Contiguous axial images were obtained. Reformatted coronal and sagittal images were also reviewed. If IV contrast material had not been administered, the likelihood of detecting abnormalities relevant to the patients condition would have been substantially decreased. CT scan was performed according to ALARA (as low as reasonable achievable). FINDINGS: Few linear atelectatic bands are noted in basal segment of left lower lobe. Gross splenomegaly measuring about 20 cm craniocaudally. Mild hepatomegaly measures about 16 cm craniocaudally. Small fat containing left paraumbilical hernia with subtle adjacent fat stranding. Abdominal aorta is normal in course, calibre and opacification. Origin of coeliac artery, superior mesenteric artery , bilateral main renal and lumbar arteries are normal with no hemodynamically significant ostial stenosis noted. Bilateral common, external and internal iliac arteries are normal in course, caliber and opacification. Solid abdominal organs including liver, spleen, pancreas and bilateral kidneys reveal no significant abnormality. Bowel loops are grossly unremarkable. No evidence of ascites. IMPRESSION: 1. Mild hepatomegaly .-stable. 2. Stable gross splenomegaly. 3. Stable left paraumbilical hernia. 4. No obvious aortic dissection/aneurysm or stenosis. 5. No other vascular abnormality seen. 6. No other new interval abnormality since prior study. Electronically Signed by: Carlos Can MD. (07/16/2024 01:17:27 EST)
--- NOTE | 2024-07-16 01:41 | XRAY ---
CLINICAL HISTORY: left lower chest, upper abd pain COMPARISON: 07/15/2024 21:37:12 CT TECHNIQUE: Contiguous 3.[address] images of the chest were acquired with administration of 100 ml [id number] intravenous contrast. Coronal and sagittal reconstructions were obtained. IV contrast was administered for post contrast images. One of the following dose reduction techniques were utilized for this exam: Automated exposure control, adjustment of the mA and/or kV according to patient size, and use of iterative reconstruction FINDINGS: Lungs: Lungs are clear with no evidence of consolidation, collapse. No interstitial changes. Atelectasis is noted in left basal segments. Bilateral posterior basal congestion is seen No pleural effusion or pleural thickening. Mediastinum: No mediastinal mass or abnormal lymphadenopathy. Hilar Structures: Normal size and configuration, no enlargement. Heart and Great Vessels: Mild cardiomegaly. No pericardial effusion. Normal caliber and course of the thoracic aorta and other great vessels. No significant atherosclerosis or aneurysm. Normal enhancement of the great vessels post-contrast. Pulmonary Arteries: No evidence of pulmonary embolism. Normal size and course of the pulmonary arteries. Esophagus: Normal course and caliber. No masses or dilatation. Bones: No fractures or lytic/sclerotic lesions. Normal bone density and alignment. No evidence of rib fractures. Chest Wall: No masses or soft tissue abnormalities. Upper Abdomen: Fatty liver is noted. Intrahepatic biliary dilatation is seen. Limited visualization of the spleen. shows splenomegaly and a hyperdense area in the periphery of the spleen. Could be arterial phase differential enhancement. IMPRESSION: 1. No CT evidence of pulmonary embolism. 2. Mild cardiomegaly. 3. Atelectasis in the left basal segment. 4. No significant interval change. 5. Fatty infiltration with intrahepatic biliary dilatation. 6. Limited visualization of the spleen shows splenomegaly and a hyperdense area in the periphery of the spleen. Could be arterial phase differential enhancement. Correlate clinically. Electronically Signed by: Julia Casillas MD. (07/16/2024 01:36:35 EST)
[2024-07-16] MEDS ORDERED: VENTOLIN COMMON CANISTER IH PRN (04:07)
[2024-07-16] MEDS ORDERED: ZOFRAN ODT 4 MG PO PRN (04:07)
[2024-07-16] MEDS ORDERED: MILK OF MAGNESIA 30 ML PO PRN (04:10)
[2024-07-16] MEDS ORDERED: TYLENOL 325 MG PO PRN (04:10)
[2024-07-16] MEDS: Zofran 4 MG/2 ML VIAL IV PRN (04:27)
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
[2024-07-16] MEDS: Sodium Chloride 0.9% 1000 ML 1,000 ML IV SCH (05:58)
[2024-07-16] MEDS: ROCEPHIN 1 GM / 100 ML NaCl 1 GM/100 ML IVPB IV SCH (05:58)
[2024-07-16] MEDS: VENTOLIN COMMON CANISTER IH PRN (06:59)
[2024-07-16 07:14] LABS: Hematocrit 27.4 % (34.1-44.9); Mean Cell Volume 69.4 fL (79.4-94.8); Mean Corpuscular Hemoglobin 20.3 pg (25.6-32.2); Mean Corpuscular Hgb Concent. 29.2 g/dL (32.2-35.5); Platelet Count 54 x10^3/uL (182-369); Red Blood Count 3.95 x10^6/uL (3.93-5.22); Red Cell Distribution Width 22.5 % (11.7-14.4); White Blood Count 22.7 x10^3/uL (3.98-10.04)
[2024-07-16] MEDS ORDERED: MEDICATION INTERVENTION MC SCH (07:15)
[2024-07-16 07:41] LABS: ALBUMIN 3.8 g/dL (3.5-5.0); ANION GAP 9.6 MEQ/L (5-15); BILIRUBIN,TOTAL 0.6 mg/dL (0.2-1.3); Calcium 8.1 mg/dL (8.4-10.2); Creatinine 1 0.75 mg/dL (0.52-1.04); EST GLOMERULAR FILTRATION RATE 101.2 ML/MIN; Potassium 4.3 mmol/L (3.5-5.1); Total Protein 6.9 g/dL (6.3-8.2)
[2024-07-16 08:05] VITALS: RESP 16
[2024-07-16] MEDS ORDERED: NON-FORMULARY ITEM (Vilazodone Hcl [Vilazodone Hcl] 20 MG Tablet) PO SCH (10:00)
[2024-07-16 10:11] LABS: BAND 14 % (0.0-2.0); Lymphocytes 5 % (19.3-51.7); Metamyelocyte 2 %; Monocyte 6 % (4.7-12.5); Neutrophils 73 % (34.0-71.1); Nucleated Red Blood Cell 1 %; Total Cells Counted 100
[2024-07-16 10:12] LABS: Platelet Estimate DECREASED (NORMAL)
[2024-07-16 10:16] LABS: ANISOCYTOSIS 1+; Hypochromia 1+; Microcytosis 2+; Polychromasia 1+
[2024-07-16] MEDS: Pepcid 20 MG PO SCH (10:54)
[2024-07-16] MEDS: Acidophilus TABLET PO SCH (10:54)
[2024-07-16] MEDS: FEOSOL 325 MG PO SCH (10:54)
[2024-07-16] MEDS: Docusate Sodium 100 MG PO SCH (10:54)
[2024-07-16] MEDS: KEPPRA PO SCH (10:54)
[2024-07-16] MEDS: DOLOPHINE 10MG Tablet PO SCH (10:54)
[2024-07-16] MEDS: Miralax Powder 17GM PACKET PO SCH (10:55)
[2024-07-16 12:23] VITALS: BP 141/78; PULSE 88; TEMP 98.2; O2SAT 98
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
[2024-07-16] MEDS ORDERED: SENOKOT 8.6 MG PO SCH (22:00)
[2024-07-16] MEDS ORDERED: ROCEPHIN 1 GM / 100 ML NaCl 1 GM/100 ML IVPB IV SCH (22:00)
== END 2024-07-16 14:12 | disposition home or self-care (01) ==
LOC: ED 21:07 → MED SURG 07-16 02:24
PROVIDERS: ADMIT Internal Medicine; ATTEND Internal Medicine
DX: K59.00 Constipation, unspecified (principal); R16.2 Hepatomegaly with splenomegaly, not elsewhere classified; R10.9 Unspecified abdominal pain; D72.829 Elevated white blood cell count, unspecified; B27.90 Infectious mononucleosis, unspecified without complication; N39.0 Urinary tract infection, site not specified; F17.200 Nicotine dependence, unspecified, uncomplicated; D69.6 Thrombocytopenia, unspecified; I10 Essential (primary) hypertension; Z79.899 Other long term (current) drug therapy; Z87.820 Personal history of traumatic brain injury
CPT/HCPCS: 36415; 71260; 74174; 74176; 80053; 80074; 81001; 82248; 82607; 82746; 83605; 83615; 83690; 84439; 84443; 84484; 85025; 85379; 85384; 85610; 85730; 86308; 87086; 94640; 94760; 96374; 96375; 99285; G0378; J0696; J2405; A9270-GY